=== PATIENT | female | born 1970 | race Caucasian/White ===

== ENCOUNTER 2020-02-21 20:20 | Inpatient (IN) | payer MEDICAID, SELFPAY ==
[2020-02-21 20:31] VITALS: BP 157/83; PULSE 72; RESP 17; TEMP 36.9; O2SAT 88; BMI 38.5
--- NOTE | 2020-02-21 20:44 | PC.NURSE ---
Pt o2 sat on RA 88-89% on room air, placed on 2L o2 via NC, sat up to 94-95% Awaiting primary eval.
--- NOTE | 2020-02-21 21:12 | XR_ITS ---
EXAMINATION: XR CHEST CLINICAL INFORMATION: Shortness of breath COMPARISON: 12/05/2019 TECHNIQUE: Frontal view of the chest was obtained. FINDINGS: Lungs are significantly hypoinflated compared to the prior study. Again noted are scattered areas of atelectasis. No focal consolidations or lung masses are present. A tiny right pleural effusion cannot be entirely excluded. IMPRESSION: Hypoinflated lungs with scattered areas of atelectasis. No acute intrathoracic disease.
--- NOTE | 2020-02-21 21:13 | ECG_ITS ---
Test Reason : CHEST PAIN Blood Pressure : / mmHG Vent. Rate : 069 BPM Atrial Rate : 069 BPM P-R Int : 146 ms QRS Dur : 100 ms QT Int : 436 ms P-R-T Axes : 056 -03 086 degrees QTc Int : 467 ms Normal sinus rhythm Nonspecific T wave abnormality Lateral leads Abnormal ECG No previous ECGs available Referred By: Andrea Hernandes Electronically Signed By:ANEL MARTINEZ MD
--- NOTE | 2020-02-21 21:15 | ED_ITS ---
HPI - SOB/Dyspnea General Chief Complaint: Dyspnea Stated Complaint: SOB Time Seen by Provider: 02/21/20 21:07 Source: patient History of Present Illness HPI Narrative: 50-year-old female with a history of asthma and COPD coming in with shortness of breath patient states he is supposed to be on home oxygen however months ago they stopped. For the past 4 -5 days has been increasing shortness of breath with cough. Nonproductive. No fevers or chills. denies ch est pain denies nausea vomiting. Denies abdominal pain states has not been sick recently with any contacts with [place] [facility] elicited complaint: shortness of breath Pertinent past history: COPD Onset (ago): day(s) ( 4 days) Timing: constant Severity: moderate Exacerbating factors: lying flat Relieving factors: oxygen Known history of: COPD Associated symptoms: cough Treatment prior to arrival: oxygen Related Data Home oxygen amount: none Home Medications Medication Instructions Recorded Confirmed gabapentin 600 mg PO TID 02/21/20 02/21/20 sertraline 100 mg PO DAILY 02/21/20 02/21/20 albuterol 180 mcg INHALATION Q4H PRN 02/22/20 02/22/20 amlodipine 5 mg PO DAILY 02/22/20 02/22/20 [id number] 2 tab PO DAILY PRN 02/22/20 02/22/20 [Excedrin Migraine] buprenorphine-naloxone [Suboxone] 1 film BUCCAL DAILY 02/22/20 02/22/20 docusate sodium [Stool Softener] 100 mg PO BID 02/22/20 02/22/20 haloperidol [Haldol] 0.5 mg PO DAILY 02/22/20 02/22/20 haloperidol [Haldol] 0.5 mg PO DAILY PRN 02/22/20 02/22/20 haloperidol [Haldol] 1 mg PO BEDTIME 02/22/20 02/22/20 lamotrigine 50 mg PO DAILY 02/22/20 02/22/20 lisinopril 30 mg PO DAILY 02/22/20 02/22/20 loratadine [Claritin] 10 mg PO DAILY 02/22/20 02/22/20 nystatin [Nyamyc] 1 applic TOPICAL BID 02/22/20 02/22/20 polyethylene glycol 3350 [Miralax] 17 g PO DAILY 02/22/20 02/22/20 prazosin 1 mg PO BEDTIME 02/22/20 02/22/20 prazosin 2 mg PO BEDTIME 02/22/20 02/22/20 tiotropium-olodaterol [Stiolto 2 puff INHALATION DAILY 02/22/20 02/22/20 Respimat] trazodone 300 mg PO BEDTIME 02/22/20 02/22/20 Previous Rx's Medication Instructions Recorded levofloxacin 750 mg PO DAILY 7 Days #7 tab 02/22/20 prednisone 50 mg PO DAILY 5 Days #5 tab 02/22/20 Allergies Allergy/AdvReac Type Severity Reaction Status Date / Time codeine [CODEINE] AdvReac Mild RASH Verified 02/21/20 20:31 oxycodone [From OXYCONTIN] AdvReac Mild RASH Verified 02/21/20 20:31 Review of Systems Review of Systems: Constitutional : No Fever, No Chills ENT/Mouth : No sore throat, No Rhinorrhea, No Swallowing Difficulty Eyes: No Eye Pain, No Swelling, No Redness Cardiovascular : No Chest Pain, positive SOB, No Orthopnea, positive Edema Respiratory : No Cough, No Sputum, No Wheezing, positive dyspnea Gastrointestinal : No Nausea, No Vomiting, No Diarrhea, No abdominal Pain, No Hematochezia, No Melena Genitourinary : No Dysuria, No Urinary Frequency, No Hematuria Musculoskeletal : No joint pain, No Myalgias Skin : No Skin Lesions, No rash Neuro : No Weakness, No Numbness, No Dizziness, No Headache Psych : No Anxiety/Panic, No Depression Heme/Lymph: No Bruising, No Lymphadenopathy Endocrine : No Polyuria, No Polydipsia [facility] Past Medical History Medical History (Updated 02/22/20 @ 00:33 by Andrea Hernandse DO) Asthma COPD (chronic obstructive pulmonary disease) Surgical History (Updated 02/21/20 @ 21:17 by Andrea Hernandes DO) H/O neck surgery Social History Social History Alcohol intake: never Smoking Status: Current every day smoker Smoked in Last 30 Days: Yes Use of substances other than those prescribed or required for medical reasons: No Advance Directives: No Advance Directives Information Provided: Yes Physical Exam Vital Signs: Vital Signs: Vital Signs Temp Pulse Resp BP Pulse Ox 02/21/20 22:18 98.9 F 68 18 138/62 94 02/21/20 20:31 98.5 F 72 17 157/83 H 88 L Body Mass Index 38.5 vital signs reviewed pulse ox interpreted as low. 88% room air Appearance: Alert. Oriented X3. No acute distress. Eyes: Pupils equal, round and reactive to light. ENT: Pharynx normal. Neck: Normal inspection. Neck supple. No lymph nodes noted. No crepitus CVS: Normal heart rate and rhythm. Pulses normal. Normal S1 and S2 Respiratory: mild respiratory distress. Breath sounds abnormal. bilateral Wheezing. No rales Abdomen: Soft and nontender. No rigidity. No distention. good BS x4 Skin: Skin warm and dry. Normal skin color. Normal skin turgor. Extremities: No lower extremity edema. Neurovascular intact to all extremities. No Lacerations. No Rash Neuro: Oriented X 3. No motor deficit. No sensory deficit. Moving all extermities. No slurred speech. Course Course Course Narrative: differential diagnosis includes COPD exacerbation. Sepsis, pneumonia pulmonary embolism Reevaluation(s) Reevaluation #1: after admission process has started. Now patient states she wants to leave and she wants to go home. I discussed with her the importance of staying in the hospital secondary to low oxygen levels and infection to lung and she states that she wants to leave because she does not want to lose her bed at her rehab. We explained to her we will try to facilitate when she gets discharged from work to stay however patient continues to refuse and does not want to stay anymore. Patient is alert and oriented x4. Patient is not i ntoxicated. And is now screaming at staff that she wants the hospital to get her a ride home I discussed this with hospitalist I discussed the patient reasons to call or 1 and return. Patient is not intoxicated and will be signing out AMA patient at 02:36 now decided wants to stay in the emergency department will need be admitted I discussed with hospitalist Time: 00:58 MDM - SOB/Dyspnea MDM Narrative Medical decision making narrative: 50-year-old female with a history of COPD with arrival of hypoxia improved with oxygenation IV antibiotics and Steroids. CTA without pulmonary embolism however diagnosed with pneumonia will be admitted. Patient does not meet criteria for sepsis at this point however antibiotics and fluids were empirically began with multiple rechecks by me while in the emergency department to prevent further deterioration I spoke with hospitalist at 00:38 in regards to admission Medical Records Attestation: I reviewed the patient's medical records. Lab Data Attestation: I reviewed the patient's lab results. Result diagrams: 02/21/20 21:35 02/21/20 21:35 Labs: Lab Results 02/21/20 02/21/20 02/21/20 Range/Units 21:35 21:35 21:35 WBC 9.0 (4.8-10.8) X10*3/uL RBC 4.86 (4.20-5.50) X10*6/uL Hgb 14.5 (12.0-16.0) g/dl Hct 44.7 (37-47) % MCV 92.0 (80-98) fL MCH 29.8 (27.0-33.0) pg MCHC 32.4 (31.0-35.0) g/dl RDW 13.8 (11.0-16.0) % Plt Count 147 L (160-400) X10*3/uL MPV 9.3 L (9.4-12.3) fL Immature Gran % (Auto) 0.4 (0.0-0.4) % Neut % (Auto) 52.3 (45-73) % Lymph % (Auto) 31.4 (20-40) % [place] % (Auto) 11.4 H (2-11) % Eos % (Auto) 4.2 H (0-4) % Baso % (Auto) 0.3 (0-2) % Lymph # (Auto) 2.8 (1.2-4.9) X10*3/uL [place] # (Auto) 1.0 (0.1-1.2) X10*3/uL Eos # (Auto) 0.4 (0.0-0.4) X10*3/uL Baso # (Auto) 0.0 (0.0-0.2) X10*3/uL Abs Immat Gran (auto) 0.04 H (0.00-0.03) X10*3/uL Absolute Neuts (auto) 4.7 (2.0-8.3) X10*3/uL Absolute Nucleated RBC 0.000 (0.0-0.012) X10*3/uL Nucleated RBC % (auto) 0.0 (0.0-0.2) /100WBC D-Dimer 951 NG/ML Sodium 141 (135-145) mmol/L Potassium 3.8 (3.3-5.1) mmol/l Chloride 101 (96-108) mmol/L Carbon Dioxide 34 H (22-29) mmol/L Anion Gap 10 L (12-20) BUN 13 (9-16) mg/dL Creatinine 0.74 (0.5-1.4) mg/dL Estim Creat Clear Calc 112.0 Estimated GFR > 60 Random Glucose 118 H (60-115) mg/dL Lactic Acid (0.5-2.0) mmol/L Calcium 9.1 (8.4-10.2) mg/dL Total Bilirubin 0.4 (0.0-1.0) mg/dL Direct Bilirubin 0.2 (0.0-0.5) mg/dL AST 34 H (5-31) U/L ALT 37 H (0-31) U/L Alkaline Phosphatase 88 (39-117) U/L Troponin I High Sens (<3.5-17.0) ng/L Total Protein 7.2 (6.5-8.0) g/dL Albumin 3.9 (3.5-5.0) g/dL Lipase 46 (8-78) U/L 02/21/20 02/21/20 Range/Units 21:35 21:35 WBC (4.8-10.8) X10*3/uL RBC (4.20-5.50) X10*6/uL Hgb (12.0-16.0) g/dl Hct (37-47) % MCV (80-98) fL MCH (27.0-33.0) pg MCHC (31.0-35.0) g/dl RDW (11.0-16.0) % Plt Count (160-400) X10*3/uL MPV (9.4-12.3) fL Immature Gran % (Auto) (0.0-0.4) % Neut % (Auto) (45-73) % Lymph % (Auto) (20-40) % [place] % (Auto) (2-11) % Eos % (Auto) (0-4) % Baso % (Auto) (0-2) % Lymph # (Auto) (1.2-4.9) X10*3/uL [place] # (Auto) (0.1-1.2) X10*3/uL Eos # (Auto) (0.0-0.4) X10*3/uL Baso # (Auto) (0.0-0.2) X10*3/uL Abs Immat Gran (auto) (0.00-0.03) X10*3/uL Absolute Neuts (auto) (2.0-8.3) X10*3/uL Absolute Nucleated RBC (0.0-0.012) X10*3/uL Nucleated RBC % (auto) (0.0-0.2) /100WBC D-Dimer NG/ML Sodium (135-145) mmol/L Potassium (3.3-5.1) mmol/l Chloride (96-108) mmol/L Carbon Dioxide (22-29) mmol/L Anion Gap (12-20) BUN (9-16) mg/dL Creatinine (0.5-1.4) mg/dL Estim Creat Clear Calc Estimated GFR Random Glucose (60-115) mg/dL Lactic Acid 0.6 (0.5-2.0) mmol/L Calcium (8.4-10.2) mg/dL Total Bilirubin (0.0-1.0) mg/dL Direct Bilirubin (0.0-0.5) mg/dL AST (5-31) U/L ALT (0-31) U/L Alkaline Phosphatase (39-117) U/L Troponin I High Sens 8.6 (<3.5-17.0) ng/L Total Protein (6.5-8.0) g/dL Albumin (3.5-5.0) g/dL Lipase (8-78) U/L Critical Care Time Critical Care Time Total Critical Care Time: 35 Attestation: I have personally provided the time allotted of critical care time exclusive of time spent on separately billable procedures. Time includes review of laboratory data, radiology results, discussion with consultants and monitoring for potential decompensation. Interventions were performed and documented Discharge Plan Discharge Clinical Impression: Acute exacerbation of chronic obstructive airways disease, Hypoxia Pneumonia Qualifiers: Pneumonia type: due to unspecified organism Laterality: right Lung location: lower lobe of lung Qualified Code(s): J18.9 - Pneumonia, unspecified organism Patient Disposition: Admitted As Inpatient
[2020-02-21] MEDS: Albuterol Sulfate (0.083%) 2.5 MG/3 ML VIAL.NEB 5 MG INHALE (21:36)
[2020-02-21 21:42] LABS: MANUAL DIFF FLAG NO
[2020-02-21 21:43] LABS: Basophils Percent Auto 0.3 % (0-2); Eosinophils Absolute Auto 0.4 X10*3/uL (0.0-0.4); Eosinophils Percent Auto 4.2 % (0-4); Hematocrit 44.7 % (37-47); Hemoglobin 14.5 g/dl (12.0-16.0); Imm Gran Abs Auto 0.04 X10*3/uL (0.00-0.03); Imm Gran Pct Auto 0.4 % (0.0-0.4); Lymphocytes Absolute Auto 2.8 X10*3/uL (1.2-4.9); Lymphocytes Percent Auto 31.4 % (20-40); Mean Corpuscular HGB Conc 32.4 g/dl (31.0-35.0); Mean Corpuscular Hemoglobin 29.8 pg (27.0-33.0); Mean Platelet Volume 9.3 fL (9.4-12.3); Monocytes Percent Auto 11.4 % (2-11); Neutrophils Absolute Auto 4.7 X10*3/uL (2.0-8.3); Neutrophils Percent Auto 52.3 % (45-73); Platelet Count 147 X10*3/uL (160-400); Red Blood Count 4.86 X10*6/uL (4.20-5.50); Red Cell Distribution Width 13.8 % (11.0-16.0)
[2020-02-21 21:58] LABS: D Dimer 951 NG/ML
[2020-02-21] MEDS: levoFLOXacin/D5W 750 MG/150 ML PIGGYBACK 100 MG IV (22:03)
[2020-02-21 22:05] LABS: Lactic Acid 0.6 mmol/L (0.5-2.0)
--- NOTE | 2020-02-21 22:09 | CT_ITS ---
EXAMINATION: CT ANGIOGRAM OF THE CHEST WITH AND WITHOUT CONTRAST (CT PULMONARY ANGIOGRAM FOR PE) CLINICAL INFORMATION: Shortness of breath. Hypoxia. COMPARISON: 02/21/2020 TECHNIQUE: Prior to contrast administration, noncontrast localization images were obtained. Subsequently, multidetector volumetric imaging was performed from the thoracic inlet to below the diaphragms following the administration of 65 mL Omnipaque 350 intravenous contrast. No contrast reaction reported Sagittal, coronal, and MIP oblique sagittal reformatted images were obtained on the CT workstation, uploaded to PACS, and reviewed. This CT examination was performed using dose optimization techniques as appropriate, variously including the following: *Automated exposure control *Adjustment of mA and/or kV according to patient size (this includes techniques or standardized protocols for targeted exams where dose is matched to indication/reason for exam; i.e. extremities or head) *Use of iterative reconstruction technique Total exam dose-length product 490 mGy-cm FINDINGS: QUALITY OF STUDY/CONTRAST BOLUS: Satisfactory. PULMONARY ARTERIES: No central or segmental pulmonary emboli. THORACIC AORTA: No aneurysm or dissection. LUNG: The central airways are patent. Diffuse bronchial wall thickening. Scattered groundglass opacities. Bilateral pulmonary nodules are noted. 1. 0.6 cm nodule in the lingula on series 6 image 178. 2. Right middle lobe 0.7 cm nodule on series 6 image 223. Additional mild consolidation along the right minor fissure. PLEURA: No pleural effusion or pneumothorax. MEDIASTINUM: Normal heart size. No pericardial effusion. No hilar or mediastinal lymphadenopathy. No evidence of septal bowing or right heart strain. CHEST WALL/AXILLA: No axillary or internal mammary lymphadenopathy. OSSEOUS STRUCTURES: No acute or suspicious osseous abnormality. Degenerative changes of the spine. UPPER ABDOMEN: Nodular Contour of the liver, suggestive of cirrhosis. No reflux of contrast into the hepatic veins to suggest elevated right heart pressures. IMPRESSION: 1. No pulmonary embolism. 2. Diffuse bronchial wall thickening with groundglass opacities. The appearance is suggestive of a small airways process. There may be an area of superimposed pneumonia along the right minor fissure. 3. Bilateral nodular opacities are also noted. These measure up to 0.7 cm. According to the UPDATED 2017 Fleischner Society recommendations, the advised follow-up imaging for multiple solid nodules, the largest measuring 6 mm or greater, is: LOW RISK PATIENT: CT at 3-6 months, then consider CT at 18-24 months. HIGH RISK PATIENT: CT at 3-6 months, then at 18-24 months. 4. Nodular Contour of the liver, suggestive of cirrhosis. VTE: negative
[2020-02-21 22:10] LABS: Alanine Aminotransferase 37 U/L (0-31); Albumin Level 3.9 g/dL (3.5-5.0); Alkaline Phosphatase 88 U/L (39-117); Anion Gap 10 (12-20); Aspartate Amino Transferase 34 U/L (5-31); Bilirubin Direct 0.2 mg/dL (0.0-0.5); Bilirubin Total 0.4 mg/dL (0.0-1.0); Blood Urea Nitrogen 13 mg/dL (9-16); Calcium 9.1 mg/dL (8.4-10.2); Carbon Dioxide 34 mmol/L (22-29); Chloride 101 mmol/L (96-108); Estimated Glomerular Filt Rate > 60; Glucose Random 118 mg/dL (60-115); Lipase 46 U/L (8-78); Potassium 3.8 mmol/l (3.3-5.1); Sodium 141 mmol/L (135-145); Total Protein 7.2 g/dL (6.5-8.0)
[2020-02-21 22:14] LABS: Troponin-I High Sensitivity 8.6 ng/L (<3.5-17.0)
[2020-02-21 22:18] VITALS: BP 138/62; PULSE 68; RESP 18; TEMP 37.2; O2SAT 94
[2020-02-22] VITALS (7 sets, daily range): BP systolic 144–158; BP diastolic 62–79; PULSE 72–95; RESP 16–20; TEMP 36.6–37.1; O2SAT 93–98; BMI 85.0
[2020-02-22] MEDS: iohexoL 350 MG/ML 100 ML INFUS..BTL 65 ML IV (00:10)
--- NOTE | 2020-02-22 00:54 | PC.NURSE ---
Hospitalist to bedside for eval.
--- NOTE | 2020-02-22 01:10 | PC.NURSE ---
Pt initially refusing admission and wanting to leave AMA, pt wanting this RN to figure out her transportation home. When pt was told she would need to make phone calls pt becoming angry and asking for a phone. Pt provided with phone and calling someone from [facility]. Pt saying she will stay if she cannot find a ride home.
--- NOTE | 2020-02-22 01:50 | P.HPIM_ITS ---
History of Present Illness Date of Service: 02/22/20 Chief Complaint: SOB this is a 50-year-old female with past medical history of COPD exacerbation and tobacco use who presents to the hospital with complaints of shortness of breath for the past 4 days. Patient reports cough and sputum production. No fever or chills. Patient reports that she is supposed to be on baseline 2 L of oxygen but the company. Delivering her oxygen few months ago. On arrival to the ED patient was 88% on room air. She reports no chest pain, no sick contacts or recent travel. No headache, change in vision, abdominal pain nausea or vomiting. No diarrhea constipation. No lower extremity edema no urinary symptoms. On arrival to the ED patient's vitals are significant for a temp of 98.5?, pulse rate of 72, respiratory rate of 17, blood pressure 157/8083, and 88% on room air. Patient currently on 2 L satting 96%. labs unremarkable CT angiogram shows no PE but diffuse bronchial wall thickening with ground- glass opacities, the appearance is suggestive of small airway process. An area of superimposed pneumonia cannot be ruled out. Bilateral nodular opacities also noted. Patient will be admitted for further management of COPD exacerbation past medical history: COPD, hypertension, tobacco use disorder surgical history: Appendectomy, tonsillectomy family history: Nonsignificant social history: Comes from home, currently smokes half a pack per day, denies alcohol and or illicit drugs Review of Systems Review of Systems: Yes all other systems are reviewed and are negative [facility] Medical History (Updated 02/22/20 @ 06:04 by Natalia Puentes MD) Asthma COPD (chronic obstructive pulmonary disease) Hypertension Surgical History H/O neck surgery Social History Household Members: Other Housing: Other Do you presently have visiting nurse or other home services: Yes Alcohol intake: never Smoking Status: Current every day smoker Tobacco Type: Cigarette Smoked in Last 30 Days: Yes Patient Interested in Nicotine Replacement: No Patient Given Instructions on How to Stop Smoking: Yes Date Education Initiated: 02/22/20 Second Hand Smoke Exposure: Yes Use of substances other than those prescribed or required for medical reasons: No Have you been hit, kicked, punched, or otherwise hurt by someone within the past year? If so, by whom?: No Do you feel safe in your current relationship?: No Is there a partner from a previous relationship who is making you feel unsafe now?: No Are you made to feel afraid or neglected: No Advance Directives: No Advance Directives Information Provided: Yes Do you have thoughts of harming others: None Recently lost weight without trying: No service: No Current occupational status: unemployed Meds Allergies Allergy/AdvReac Type Severity Reaction Status Date / Time codeine [CODEINE] AdvReac Mild RASH Verified 02/21/20 20:31 oxycodone [From OXYCONTIN] AdvReac Mild RASH Verified 02/21/20 20:31 Home Medications Medication Instructions Recorded Confirmed Type gabapentin 600 mg PO TID 02/21/20 02/21/20 History sertraline 100 mg PO DAILY 02/21/20 02/21/20 History Excedrin Migraine 2 tab PO DAILY PRN 02/22/20 02/22/20 History Stiolto Respimat 2 puff INHALATION DAILY 02/22/20 02/22/20 History albuterol 180 mcg INHALATION Q4H PRN 02/22/20 02/22/20 History amlodipine 5 mg PO DAILY 02/22/20 02/22/20 History buprenorphine-naloxone [Suboxone] 1 film BUCCAL DAILY 02/22/20 02/22/20 History docusate sodium [Stool Softener] 100 mg PO BID 02/22/20 02/22/20 History haloperidol 0.5 mg PO DAILY 02/22/20 02/22/20 History haloperidol 0.5 mg PO DAILY PRN 02/22/20 02/22/20 History haloperidol 1 mg PO BEDTIME 02/22/20 02/22/20 History lamotrigine 50 mg PO DAILY 02/22/20 02/22/20 History lisinopril 30 mg PO DAILY 02/22/20 02/22/20 History loratadine [Claritin] 10 mg PO DAILY 02/22/20 02/22/20 History nystatin [Nyamyc] 1 applic TOPICAL BID 02/22/20 02/22/20 History polyethylene glycol 3350 [Miralax] 17 g PO DAILY 02/22/20 02/22/20 History prazosin 1 mg PO BEDTIME 02/22/20 02/22/20 History prazosin 2 mg PO BEDTIME 02/22/20 02/22/20 History trazodone 300 mg PO BEDTIME 02/22/20 02/22/20 History Physical Exam Vital Signs and Narrative: Vital Signs: Last Vital Signs Temp 98.9 F 02/21/20 22:18 Pulse 68 02/21/20 22:18 Resp 18 02/21/20 22:18 BP 138/62 02/21/20 22:18 Pulse Ox 94 02/21/20 22:18 Body Mass Index 38.5 Const: General: cooperative and no acute distress Orientation/consciousness: patient oriented x3 Eyes: General: appearance normal, both eyes and all related structures Pupils: Equal, round and reactive pupils present Resp: Effort & Inspection: normal respiratory effort and able to speak in complete sentences Auscultation: rhonchi and wheezes Cardio: Rate: regular rate Rhythm: regular rhythm GI: Palpation (GI): Soft to palpation Auscultation: normal bowel sounds Skin: General skin exam: no rashes or lesions noted Neuro: General: patient oriented x3 Cranial nerves: Yes Equal, round and reactive pupils present Cognition (Neuro): normal cognition Extrem: General: Yes normal to inspection and Yes no pedal edema Results Labs Labs: Laboratory Tests 02/21/20 02/21/20 02/21/20 21:35 21:35 21:35 WBC 9.0 RBC 4.86 Hgb 14.5 Hct 44.7 MCV 92.0 MCH 29.8 MCHC 32.4 RDW 13.8 Plt Count 147 L MPV 9.3 L Immature Gran % (Auto) 0.4 Neut % (Auto) 52.3 Lymph % (Auto) 31.4 [place] % (Auto) 11.4 H Eos % (Auto) 4.2 H Baso % (Auto) 0.3 Lymph # (Auto) 2.8 [place] # (Auto) 1.0 Eos # (Auto) 0.4 Baso # (Auto) 0.0 Abs Immat Gran (auto) 0.04 H Absolute Neuts (auto) 4.7 Absolute Nucleated RBC 0.000 Nucleated RBC % (auto) 0.0 D-Dimer 951 Sodium 141 Potassium 3.8 Chloride 101 Carbon Dioxide 34 H Anion Gap 10 L BUN 13 Creatinine 0.74 Estim Creat Clear Calc 112.0 Estimated GFR > 60 Random Glucose 118 H Lactic Acid Calcium 9.1 Total Bilirubin 0.4 Direct Bilirubin 0.2 AST 34 H ALT 37 H Alkaline Phosphatase 88 Troponin I High Sens Total Protein 7.2 Albumin 3.9 Lipase 46 02/21/20 02/21/20 21:35 21:35 WBC RBC Hgb Hct MCV MCH MCHC RDW Plt Count MPV Immature Gran % (Auto) Neut % (Auto) Lymph % (Auto) [place] % (Auto) Eos % (Auto) Baso % (Auto) Lymph # (Auto) [place] # (Auto) Eos # (Auto) Baso # (Auto) Abs Immat Gran (auto) Absolute Neuts (auto) Absolute Nucleated RBC Nucleated RBC % (auto) D-Dimer Sodium Potassium Chloride Carbon Dioxide Anion Gap BUN Creatinine Estim Creat Clear Calc Estimated GFR Random Glucose Lactic Acid 0.6 Calcium Total Bilirubin Direct Bilirubin AST ALT Alkaline Phosphatase Troponin I High Sens 8.6 Total Protein Albumin Lipase Assessment and Plan (1) Acute exacerbation of chronic obstructive airways disease: Status: Acute (2) Hypoxia: Status: Acute (3) Pneumonia: Qualifiers: Laterality: right Lung location: lower lobe of lung Pneumonia type: due to unspecified organism Qualified Code(s): J18.9 - Pneumonia, unspecified organism Status: Acute (4) Hypertension: Status: Acute this is a 50-year-old female with past medical history of COPD who presents to the hospital with cough, dyspnea, and sputum production. Also found to have pneumonia # acute on chronic COPD exacerbation - dyspnea, cough, sputum production - CT chest is also showing pneumonia - patient has not had any sick contacts or recent travel - PCR for coronavirus negative in the past with low risk factors at this time Plan: - continue Solu-Medrol 40 IV b.i.d., DuoNeb scheduled and PRN - O2 as required - No clinical evidence of COvid infection and no risk factors - Tx underlying PNA # Community Acquired PNA -
--- NOTE | 2020-02-22 03:42 | PC.NURSE ---
Report attemted, floor nurse to call back
[2020-02-22] MEDS: Albuterol/Iprat 2.5/0.5MG 3 ML AMPUL.NEB INHALE ×3 (07:21→15:17)
[2020-02-22 07:55] LABS: MANUAL DIFF FLAG NO
[2020-02-22 08:10] LABS: Basophils Percent Auto 0.3 % (0-2); Eosinophils Percent Auto 0.6 % (0-4); Hematocrit 45.4 % (37-47); Hemoglobin 14.7 g/dl (12.0-16.0); Imm Gran Abs Auto 0.07 X10*3/uL (0.00-0.03); Lymphocytes Absolute Auto 1.3 X10*3/uL (1.2-4.9); Mean Corpuscular HGB Conc 32.4 g/dl (31.0-35.0); Mean Corpuscular Hemoglobin 29.6 pg (27.0-33.0); Mean Corpuscular Volume 91.3 fL (80-98); Mean Platelet Volume 9.6 fL (9.4-12.3); Monocytes Absolute Auto 0.2 X10*3/uL (0.1-1.2); Monocytes Percent Auto 2.7 % (2-11); Neutrophils Absolute Auto 5.3 X10*3/uL (2.0-8.3); Neutrophils Percent Auto 76.4 % (45-73); Platelet Count 133 X10*3/uL (160-400); Red Blood Count 4.97 X10*6/uL (4.20-5.50); Red Cell Distribution Width 13.5 % (11.0-16.0); White Blood Count 6.9 X10*3/uL (4.8-10.8)
[2020-02-22] MEDS: Gabapentin 300 MG CAPSULE 600 MG PO ×2 (08:44→15:47)
[2020-02-22] MEDS: lisinopriL 10 MG TABLET 30 MG PO (08:44)
[2020-02-22] MEDS: Sertraline HCL 100 MG TABLET PO (08:45)
[2020-02-22] MEDS: Loratadine 10 MG TABLET PO (08:47)
[2020-02-22] MEDS: 0.9 % Sodium Chloride Flush 3 ML SYRINGE IVFLUSH ×2 (08:57→15:50)
[2020-02-22] MEDS: amLODIPine Besylate 5 MG TABLET PO (08:59)
[2020-02-22 09:00] LABS: Alanine Aminotransferase 37 U/L (0-31); Albumin Level 3.9 g/dL (3.5-5.0); Alkaline Phosphatase 90 U/L (39-117); Anion Gap 13 (12-20); Aspartate Amino Transferase 33 U/L (5-31); Bilirubin Total 0.4 mg/dL (0.0-1.0); Blood Urea Nitrogen 12 mg/dL (9-16); Calcium 9.1 mg/dL (8.4-10.2); Carbon Dioxide 26 mmol/L (22-29); Chloride 102 mmol/L (96-108); Creatinine Clr Calc Pharmacy 205.7; Estimated Glomerular Filt Rate > 60; Glucose Random 194 mg/dL (60-115); Sodium 137 mmol/L (135-145); Total Protein 7.3 g/dL (6.5-8.0)
[2020-02-22] MEDS: Acetaminophen 325 MG TABLET 650 MG PO (15:48)
[2020-02-22 16:02] LABS: SARS COV2 PCR INHOUSE NEGATIVE (Negative)
--- NOTE | 2020-02-23 10:03 | MHC.CM.PN ---
Pt lives alone in [facility] [place]. she reports she is independent in her care. she has family that live nearby and can help her should she need it. this will include a ride home at [place]. pt denies the need for vna at [place]. pt uses [facility] in [place] for pcp. dc plan is home no svcs. cm to cont. to follow.
[2020-02-25 14:27] LABS: Strep Pneumo Ag urine Not Detected (Not Detected)
[2020-02-25 18:42] LABS: Legionella Ag Urine Not Detected (Not Detected)
--- NOTE | 2020-03-15 16:02 | P.DS_ITS ---
DS: Providers Provider Date of admission: 02/22/20 01:50 Primary care physician: Unknown Physician DS: Diagnosis Discharge Diagnosis (1) Acute exacerbation of chronic obstructive airways disease: Status: Acute (2) Hypoxia: Status: Acute (3) Pneumonia: Status: Acute DS: Summary Hospital Course Hospital Course: Date of discharge: 02/22/2020 HPI:50-year-old female with past medical history of COPD exacerbation and tobacco use who presents to the hospital with complaints of shortness of breath for the past 4 days. Patient reports cough and sputum production. No fever or chills. Patient reports that she is supposed to be on baseline 2 L of oxygen but the company. Delivering her oxygen few months ago. On arrival to the ED patient was 88% on room air. She reports no chest pain, no sick contacts or recent travel. No headache, change in vision, abdominal pain nausea or vomiting. No diarrhea constipation. No lower extremity edema no urinary symptoms. On arrival to the ED patient's vitals are significant for a temp of 98.5?, pulse rate of 72, respiratory rate of 17, blood pressure 157/8083, and 88% on room air. Patient currently on 2 L satting 96%. labs unremarkable CT angiogram shows no PE but diffuse bronchial wall thickening with ground- glass opacities, the appearance is suggestive of small airway process. An area of superimposed pneumonia cannot be ruled out. Bilateral nodular opacities also noted. Patient will be admitted for further management of COPD exacerbation Hospital Course problem lim section: patient came with COPD exacerbation as well as pneumonia -started on IV antibiotics and steroids, nebs: improved significantly does not have any fever or chills or saturating fine on the room air: patient is going home with p.o. steroids , p.o. antibiotics. Further management outpatient as per PCP. patient has mild LFT elevations - monitor LFTs in next 2-3 days in in respite: further management outpatient as per PCP, consider GI evaluation if continue to have elevated LFTs. Also please check chest imaging in 3-4 weeks to see resolution of pneumonia. Above management discussed with the patient in detail length she understand and in agreement with the above plan, time spent 50 minutes and 50% time spent on counseling. Significant findings: As above. Procedures performed: None. Treatment and response: As above. Complications: None. Time Spent with Patient Time attestation: Total time spent providing and/or coordinating discharge services: Physical Exam Vital Signs: Vital Signs: Body Mass Index 85.0 Physical exam: Cvs: rrr, [id number] , no murmur res: clear to auscultation ,no rhonchii or wheezing abd: no rebound or guarding ,nt, bs present. ext pulses present , no cyanosis neuro: axo3 , nonfocal. Discharge Plan Discharge Patient Disposition: Home, Self-Care Referrals: PATIENT IS BEING DISCHARGED HOME NO SERVICES. [Other] [facility] [Provider Group] - 2 days Physician,Unknown [Primary Care Provider] - Discharge Medications: New prednisone 50 mg tablet 50 mg PO DAILY 5 Days Qty: 5 RF: 0 cefuroxime axetil 500 mg tablet 500 mg PO BID Qty: 14 RF: 0 doxycycline monohydrate 100 mg capsule 100 mg PO DAILY Qty: 14 RF: 0 Continued gabapentin 300 mg Capsule 600 mg PO TID RF: 0 sertraline 100 mg Tablet 100 mg PO DAILY RF: 0 albuterol 90 mcg/actuation Aerosol 180 mcg INHALATION Q4H PRN (Reason: Shortness Of Breath) RF: 0 haloperidol 0.5 mg Tablet 0.5 mg PO DAILY PRN (Reason: Agitation) RF: 0 haloperidol 0.5 mg Tablet 0.5 mg PO DAILY RF: 0 polyethylene glycol 3350 [Miralax] 17 gram Powder In Packet 17 g PO DAILY RF: 0 prazosin 1 mg Capsule 1 mg PO BEDTIME RF: 0 haloperidol 1 mg Tablet 1 mg PO BEDTIME RF: 0 amlodipine 5 mg Tablet 5 mg PO DAILY RF: 0 trazodone 300 mg Tablet 300 mg PO BEDTIME RF: 0 lisinopril 30 mg Tablet 30 mg PO DAILY RF: 0 docusate sodium [Stool Softener] 100 mg Capsule 100 mg PO BID RF: 0 nystatin [Nyamyc] 100,000 unit/gram Powder 1 applic TOPICAL BID RF: 0 Excedrin Migraine 250-250-65 mg Tablet 2 tab PO DAILY PRN (Reason: Headache) RF: 0 loratadine [Claritin] 10 mg Tablet 10 mg PO DAILY RF: 0 prazosin 2 mg Capsule 2 mg PO BEDTIME RF: 0 lamotrigine 50 mg Tablet Extended Release 24hr 50 mg PO DAILY RF: 0 buprenorphine-naloxone [Suboxone] 8-2 mg Film 1 film BUCCAL DAILY RF: 0 Stiolto Respimat 2.5-2.5 mcg/actuation Mist 2 puff INHALATION DAILY RF: 0 Discharge Orders: Discharge Order (Routine); Ordered 02/22/20 Ordered By: Khanh Galan Diet: advance to your usual diet Activity on Discharge: As tolerated Patient Instructions: Pneumonia (ED) Discharge Date/Time: 02/22/20 17:45 Activity Restrictions/Additional Instructions: Thank you for visiting the emergency department today. you are signing out against medical advice after own free will. If your symptoms worsen or do not resolve completely please return to the emergency department immediately or call 911. if he have any questions please call your primary care physician Visit Report Forms: Patient Portal Discharge page Care Plan Goals: patient came with COPD exacerbation as well as pneumonia -started on IV antibiotics and steroids, nebs: improved significantly does not have any fever or chills or saturating fine on the room air: patient is going home with p.o. steroids , p.o. antibiotics. Further management outpatient as per PCP. patient has mild LFT elevations - monitor LFTs in next 2-3 days in in respite: further management outpatient as per PCP, consider GI evaluation if continue to have elevated LFTs. Also please check chest imaging in 3-4 weeks to see resolution of pneumonia. Health Concerns: as above. Plan of Treatment: As above.
== END 2020-02-22 17:45 | disposition home or self-care (01) | DRG 140 ==
LOC: HO.ED 02-22 01:42 → HO.IMC 02-22 02:17
PROVIDERS: Admitting Provider Internal Medicine; Emergency Provider Emergency Medicine; Visit Provider Internal Medicine
DX: J44.0 Chronic obstructive pulmonary disease with (acute) lower respiratory infection (principal); J18.9 Pneumonia, unspecified organism; J44.1 Chronic obstructive pulmonary disease with (acute) exacerbation; F17.210 Nicotine dependence, cigarettes, uncomplicated; I10 Essential (primary) hypertension; Z71.6 Tobacco abuse counseling; Z20.828 Contact with and (suspected) exposure to other viral communicable diseases; Z91.19 Patient's noncompliance with other medical treatment and regimen; Z88.5 Allergy status to narcotic agent; Z79.899 Other long term (current) drug therapy
CPT/HCPCS: 36415; 71045; 71275; 80048; 80053; 80076; 83605; 83690; 84484; 85025; 85379; 87040; 87449; 87635; 87899; 93005; 96361; 96365; 96375; 99219; 99284; 99291; J0574; J1956; J2920

== ENCOUNTER 2021-11-14 02:21 | Inpatient (IN) | payer MEDICAID, SELFPAY ==
[2021-11-14] VITALS (17 sets, daily range): BP systolic 108–172; BP diastolic 52–73; PULSE 63–115; RESP 12–18; TEMP 36.6–36.7; O2SAT 87–98; BMI 38.0; BMI 39.1
--- NOTE | ~2021-11-14 | XR_ITS ---
EXAMINATION: XR CHEST CLINICAL INFORMATION: Short of breath COMPARISON: 02/21/2020 TECHNIQUE: Frontal view of the chest was obtained. FINDINGS: Cardiac leads overlie the chest. The lungs are well expanded. Central vascular prominence. No overt edema. No pleural effusion or pneumothorax. The cardiomediastinal silhouette is unchanged. XR/XR chest 1V IMPRESSION: Central vascular prominence without overt edema.
--- NOTE | 2021-11-14 03:08 | PC.NURSE ---
Patient is in a longterm run by [facility] at [address] [place] [address]. Phone number [phone]
[2021-11-14] MEDS: Albuterol/Iprat 2.5/0.5MG 3 ML AMPUL.NEB INHALE (03:39)
--- NOTE | 2021-11-14 03:40 | ED_ITS ---
HPI - General Adult General Chief complaint: Dyspnea Stated complaint: SOB Time Seen by Provider: 11/14/21 03:20 Source: patient History of Present Illness HPI narrative: This is a 51-year-old female who is a poor historian. The patient reportedly complained of shortness of breath. EMS reports the patient had a pulse oximetry of 80% on room air, however there were unchanged shortness was reliable due to the patient's nail [place]. They noted that the patient was somnolent and attributed it to her having taking trazodone to sleep. The patient is not fort hcoming with regard to history, has mumbled speech, does not articulate much. She denies drug use. She denies tobacco use. Related Data Home Medications Medication Instructions Recorded Confirmed gabapentin 300 mg capsule 600 mg PO TID 02/21/20 02/21/20 sertraline 100 mg tablet 100 mg PO DAILY 02/21/20 02/21/20 albuterol 90 mcg/actuation aerosol 180 mcg inhalation Q4H PRN 02/22/20 02/22/20 inhaler Shortness Of Breath amlodipine 5 mg tablet 5 mg PO DAILY 02/22/20 02/22/20 [id number] 250 2 tab PO DAILY PRN Headache 02/22/20 02/22/20 mg-250 mg-65 mg tablet (Excedrin Migraine) buprenorphine 8 mg-naloxone 2 mg 1 film buccal DAILY 02/22/20 02/22/20 sublingual film (Suboxone) docusate sodium 100 mg capsule 100 mg PO BID 02/22/20 02/22/20 (Stool Softener) haloperidol 0.5 mg tablet 0.5 mg PO DAILY 02/22/20 02/22/20 haloperidol 0.5 mg tablet 0.5 mg PO DAILY PRN Agitation 02/22/20 02/22/20 haloperidol 1 mg tablet 1 mg PO BEDTIME 02/22/20 02/22/20 lamotrigine 50 mg tablet,extended 50 mg PO DAILY 02/22/20 02/22/20 release 24 hr lisinopril 30 mg tablet 30 mg PO DAILY 02/22/20 02/22/20 loratadine 10 mg tablet (Claritin) 10 mg PO DAILY 02/22/20 02/22/20 nystatin 100,000 unit/gram topical 1 applic topical BID 02/22/20 02/22/20 powder (Nyamyc) polyethylene glycol 3350 17 gram 17 g PO DAILY 02/22/20 02/22/20 oral powder packet (Miralax) prazosin 1 mg capsule 1 mg PO BEDTIME 02/22/20 02/22/20 prazosin 2 mg capsule 2 mg PO BEDTIME 02/22/20 02/22/20 tiotropium 2.5 mcg-olodaterol 2.5 2 puff inhalation DAILY 02/22/20 02/22/20 mcg/actuation mist for inhalation (Stiolto Respimat) trazodone 300 mg tablet 300 mg PO BEDTIME 02/22/20 02/22/20 Previous Rx's Medication Instructions Recorded cefuroxime axetil 500 mg tablet 500 mg PO BID #14 tabs 02/22/20 doxycycline monohydrate 100 mg 100 mg PO DAILY #14 caps 02/22/20 capsule prednisone 50 mg tablet 50 mg PO DAILY 5 days #5 tabs 02/22/20 Allergies Allergy/AdvReac Type Severity Reaction Status Date / Time codeine [CODEINE] AdvReac Mild RASH Verified 02/21/20 20:31 oxycodone [From OXYCONTIN] AdvReac Mild RASH Verified 02/21/20 20:31 Review of Systems Review of Systems: Yes Unobtainable due to mental status PMFSH Past Medical History Medical History (Updated 11/14/21 @ 06:00 by Porter Fernandez MD) Asthma COPD (chronic obstructive pulmonary disease) Hypertension Surgical History H/O neck surgery Social History Social History Household Members: Other Housing: Other Do you presently have visiting nurse or other home services: Yes Alcohol intake: unknown Patient Tobacco Use Status: Current everyday Tobacco user Smoked in Last 30 Days: Yes Second Hand Smoke Exposure: Yes Use of substances other than those prescribed or required for medical reasons: No Patient : No service: No Current occupational status: unemployed Physical Exam ED Vital Signs: Vital Signs - 24 hr 11/14/21 02:39 11/14/21 03:09 11/14/21 03:42 Temperature 98.1 F Pulse Rate 100 86 Respiratory Rate 13 15 Blood Pressure 110/52 L Pulse Oximetry 92 Oxygen Delivery Method Room Air Oxygen Flow Rate 11/14/21 03:54 11/14/21 04:19 11/14/21 05:35 Temperature Pulse Rate 90 73 Respiratory Rate 15 14 12 Blood Pressure 111/58 L 118/66 Pulse Oximetry 94 98 Oxygen Delivery Method Nasal Cannula BiPAP Oxygen Flow Rate 1 BMI result Body Mass Index 38.0 Const Other: Patient somnolent, has mumbled speech. Patient not tachypneic or in distress. Protuberant abdomen General: no acute distress HENMT Head: Yes normal to inspection General nose exam: Normal external nose present Mouth: moist mucous membranes Throat: Yes uvula midline Eyes Eyelids: Yes eyelids normal Conjunctivae: conjunctivae normal Pupils: Equal, round and reactive pupils present Neck Neck: Yes supple Resp Effort & Inspection: normal respiratory effort ( patient is somnolent, appears to have somewhat depressed respirations) Auscultation: clear to auscultation bilaterally Cardio Rate: regular rate Rhythm: regular rhythm Heart sounds: S1 normal heart sound present, S2 normal heart sound present, no gallops, no murmurs and no rubs GI Other: protuberant, nontender, soft Palpation (GI): Soft to palpation and nontender Auscultation: normal bowel sounds Skin General skin exam: other (Warm and dry) Neuro Other: patient somnolent no gross motor deficit General: CN's II-XI intact bilaterally Cranial nerves: Yes Equal, round and reactive pupils present Extrem Other: chronic venous stasis changes with stasis dermatitis bilaterally General: Yes no pedal edema Psych Affect: normal affect Attitude: cooperative Medical Decision Making [facility] Narrative Medical decision making narrative: Patient is a poor historian, appears to have a psychiatric history, is from a [facility], complained of shortness of breath and was very somnolent, had taken trazodone 200 mg at bedtime. Patient appeared to be hypoventilating and was borderline hypoxic. Narcan was trialed even though the patient denied drug use, and the patient did not have any response to 0.4 mg IM. She was started on BiPAP for hypercapnia /respiratory acidosis. Chest x-ray showed no evidence of pneumonia, there is mild vascular prominence centrally but no freida pulmonary edema. BNP is normal. EKG shows no concerning findings. Troponin was borderline elevated. Patient's arterial blood gas showed a mild respiratory acidosis with a pCO2 of 75 pH 7.35. There also was hypoxic with a PO2 45. Bicarb on the patient's chemistry panel was elevated consistent with probable chronic CO2 retention. CBC was unremarkable. Patient is to be admitted to the medical floor. She will be trialed off of BiPAP and if her blood gases improved, can be admitted to the medical floor. Discussed the case with Dr. Puentes of the hospitalist service Critical care time for this life-threatening illness exclusive of all other billable procedures was approximately 35 minutes including initial evaluation of the patient, ordering tests, x-ray interpretation, EKG interpretation, medical consultation, documentation, reevaluation. Lab Data Lab results reviewed: Yes I reviewed the patient's lab results. Result diagrams: 11/14/21 03:54 11/14/21 03:54 Labs: Lab Results 11/14/21 11/14/21 11/14/21 Range/Units 03:53 03:54 03:54 WBC 7.5 (4.8-10.8) X10*3/uL RBC 4.51 (4.20-5.50) X10*6/uL Hgb 13.2 (12.0-16.0) g/dl Hct 41.2 (37.0-47.0) % MCV 91.4 (80.0-98.0) fL MCH 29.3 (27.0-33.0) pg MCHC 32.0 (31.0-35.0) g/dl RDW 13.9 (11.0-16.0) % Plt Count 131 L (160-400) X10*3/uL MPV 9.7 (9.4-12.3) fL Immature Gran % (Auto) 0.3 (0.0-0.4) % Neut % (Auto) 64.8 (45-73) % Lymph % (Auto) 23.3 (20-40) % [place] % (Auto) 9.2 (2-11) % Eos % (Auto) 2.0 (0-4) % Baso % (Auto) 0.4 (0-2) % Lymph # (Auto) 1.7 (1.2-4.9) X10*3/uL [place] # (Auto) 0.7 (0.1-1.2) X10*3/uL Eos # (Auto) 0.2 (0.0-0.4) X10*3/uL Baso # (Auto) 0.0 (0.0-0.2) X10*3/uL Abs Immat Gran (auto) 0.02 (0.00-0.03) X10*3/uL Absolute Neuts (auto) 4.8 (2.0-8.3) x10*3/uL Absolute Nucleated RBC 0.000 (0.0-0.012) X10*3/uL Nucleated RBC % (auto) 0.0 (0.0-0.2) /100WBC O2 Saturation 74.0 % ABG pH at Pt Temp 7.32 L (7.35-7.45) ABG pCO2 at Pt Temp 71 H* (32-45) mmHg ABG pO2 at Pt Temp 45 L* (83-108) mmHg ABG HCO3 37 H (22-26) mmol/L ABG Base Excess (Actual) 9.0 mmol/L Sodium 139 (135-145) mmol/L Potassium 4.1 (3.3-5.1) mmol/L Chloride 102 (96-108) mmol/L Carbon Dioxide 31 H (22-29) mmol/L Anion Gap 10 L (12-20) BUN 10 (9-16) mg/dL Creatinine 0.78 (0.5-1.4) mg/dL Estim Creat Clear Calc 104.3 Estimated GFR > 60 Random Glucose 184 H (60-115) mg/dL Calcium 9.1 (8.4-10.2) mg/dL Total Bilirubin 0.4 (0.0-1.0) mg/dL AST 25 (5-31) U/L ALT 23 (0-31) U/L Alkaline Phosphatase 84 (39-117) U/L Troponin I High Sens (<3.5-17.0) ng/L B-Natriuretic Peptide (<100) pg/mL Total Protein 6.5 (6.5-8.0) g/dL Albumin 3.6 (3.5-5.0) g/dL 11/14/21 Range/Units 03:54 WBC (4.8-10.8) X10*3/uL RBC (4.20-5.50) X10*6/uL Hgb (12.0-16.0) g/dl Hct (37.0-47.0) % MCV (80.0-98.0) fL MCH (27.0-33.0) pg MCHC (31.0-35.0) g/dl RDW (11.0-16.0) % Plt Count (160-400) X10*3/uL MPV (9.4-12.3) fL Immature Gran % (Auto) (0.0-0.4) % Neut % (Auto) (45-73) % Lymph % (Auto) (20-40) % [place] % (Auto) (2-11) % Eos % (Auto) (0-4) % Baso % (Auto) (0-2) % Lymph # (Auto) (1.2-4.9) X10*3/uL [place] # (Auto) (0.1-1.2) X10*3/uL Eos # (Auto) (0.0-0.4) X10*3/uL Baso # (Auto) (0.0-0.2) X10*3/uL Abs Immat Gran (auto) (0.00-0.03) X10*3/uL Absolute Neuts (auto) (2.0-8.3) x10*3/uL Absolute Nucleated RBC (0.0-0.012) X10*3/uL Nucleated RBC % (auto) (0.0-0.2) /100WBC O2 Saturation % ABG pH at Pt Temp (7.35-7.45) ABG pCO2 at Pt Temp (32-45) mmHg ABG pO2 at Pt Temp (83-108) mmHg ABG HCO3 (22-26) mmol/L ABG Base Excess (Actual) mmol/L Sodium (135-145) mmol/L Potassium (3.3-5.1) mmol/L Chloride (96-108) mmol/L Carbon Dioxide (22-29) mmol/L Anion Gap (12-20) BUN (9-16) mg/dL Creatinine (0.5-1.4) mg/dL Estim Creat Clear Calc Estimated GFR Random Glucose (60-115) mg/dL Calcium (8.4-10.2) mg/dL Total Bilirubin (0.0-1.0) mg/dL AST (5-31) U/L ALT (0-31) U/L Alkaline Phosphatase (39-117) U/L Troponin I High Sens 21.1 H (<3.5-17.0) ng/L B-Natriuretic Peptide < 10 (<100) pg/mL Total Protein (6.5-8.0) g/dL Albumin (3.5-5.0) g/dL Imaging Data Chest x-ray: Radiologist's impression: FINDINGS: Cardiac leads overlie the chest. The lungs are well expanded. Central vascular prominence. No overt edema. No pleural effusion or pneumothorax. The cardiomediastinal silhouette is unchanged. XR/XR chest 1V IMPRESSION: Central vascular prominence without overt edema. ? ECG Data Attestation: I personally reviewed and interpreted this ECG as follows: Interpretation: Sinus rhythm with a rate of 83. Poor R-wave progression. No freida ST elevation or depression. Minimal voltage criteria for LVH. Discharge Plan Discharge Clinical Impression: Acute respiratory failure with hypoxia and hypercarbia, Somnolence, Chronic venous stasis dermatitis Patient Disposition: Admitted As Inpatient Prescriptions: No Action gabapentin 300 mg Capsule 600 mg PO TID sertraline 100 mg Tablet 100 mg PO DAILY prednisone 50 mg tablet 50 mg PO DAILY 5 Days Qty: 5 0RF albuterol 90 mcg/actuation Aerosol 180 mcg INHALATION Q4H PRN (Reason: Shortness Of Breath) haloperidol 0.5 mg Tablet 0.5 mg PO DAILY PRN (Reason: Agitation) haloperidol 0.5 mg Tablet 0.5 mg PO DAILY polyethylene glycol 3350 [Miralax] 17 gram Powder In Packet 17 g PO DAILY prazosin 1 mg Capsule 1 mg PO BEDTIME haloperidol 1 mg Tablet 1 mg PO BEDTIME amlodipine 5 mg Tablet 5 mg PO DAILY trazodone 300 mg Tablet 300 mg PO BEDTIME lisinopril 30 mg Tablet 30 mg PO DAILY docusate sodium [Stool Softener] 100 mg Capsule 100 mg PO BID nystatin [Nyamyc] 100,000 unit/gram Powder 1 applic TOPICAL BID Excedrin Migraine 250-250-65 mg Tablet 2 tab PO DAILY PRN (Reason: Headache) loratadine [Claritin] 10 mg Tablet 10 mg PO DAILY prazosin 2 mg Capsule 2 mg PO BEDTIME lamotrigine 50 mg Tablet Extended Release 24hr 50 mg PO DAILY buprenorphine-naloxone [Suboxone] 8-2 mg Film 1 film BUCCAL DAILY Stiolto Respimat 2.5-2.5 mcg/actuation Mist 2 puff INHALATION DAILY cefuroxime axetil 500 mg tablet 500 mg PO BID Qty: 14 0RF doxycycline monohydrate 100 mg capsule 100 mg PO DAILY Qty: 14 0RF
[2021-11-14 03:59] LABS: MANUAL DIFF FLAG NO
[2021-11-14 04:00] LABS: ABG HCO3 37 mmol/L (22-26); ABG pCO2 71 mmHg (32-45); ABG pH 7.32 (7.35-7.45); ABG pO2 45 mmHg (83-108)
[2021-11-14 04:01] LABS: ABG Refer to POC result
[2021-11-14 04:02] LABS: Basophils Percent Auto 0.4 % (0-2); Hemoglobin 13.2 g/dl (12.0-16.0); Mean Corpuscular Hemoglobin 29.3 pg (27.0-33.0); PLT CLUMP 1; Red Cell Distribution Width 13.9 % (11.0-16.0); SCAN SMEAR FLAG 1
[2021-11-14 04:04] LABS: Eosinophils Absolute Auto 0.2 X10*3/uL (0.0-0.4); Hematocrit 41.2 % (37.0-47.0); Imm Gran Abs Auto 0.02 X10*3/uL (0.00-0.03); Imm Gran Pct Auto 0.3 % (0.0-0.4); Lymphocytes Absolute Auto 1.7 X10*3/uL (1.2-4.9); Lymphocytes Percent Auto 23.3 % (20-40); Mean Corpuscular Volume 91.4 fL (80.0-98.0); Mean Platelet Volume 9.7 fL (9.4-12.3); Monocytes Absolute Auto 0.7 X10*3/uL (0.1-1.2); Monocytes Percent Auto 9.2 % (2-11); Neutrophils Absolute Auto 4.8 x10*3/uL (2.0-8.3); Neutrophils Percent Auto 64.8 % (45-73); Red Blood Count 4.51 X10*6/uL (4.20-5.50)
[2021-11-14] MEDS: Naloxone HCl 0.4 MG/ML VIAL IM (04:06)
[2021-11-14 04:10] LABS: White Blood Count 7.5 X10*3/uL (4.8-10.8)
[2021-11-14 04:11] LABS: Platelet Count 131 X10*3/uL (160-400)
--- NOTE | 2021-11-14 04:13 | PC.NURSE ---
Patient very sleepy and CO2 very high. Per MD [place] IM ordered. Narcan had no effect on patient. Respiratory in to put patient on bipap.
[2021-11-14 04:21] LABS: B Type Natriuretic Peptide < 10 pg/mL (<100); Troponin-I High Sensitivity 21.1 ng/L (<3.5-17.0)
[2021-11-14 04:25] LABS: Alanine Aminotransferase 23 U/L (0-31); Albumin Level 3.6 g/dL (3.5-5.0); Alkaline Phosphatase 84 U/L (39-117); Anion Gap 10 (12-20); Aspartate Amino Transferase 25 U/L (5-31); Bilirubin Total 0.4 mg/dL (0.0-1.0); Blood Urea Nitrogen 10 mg/dL (9-16); Calcium 9.1 mg/dL (8.4-10.2); Carbon Dioxide 31 mmol/L (22-29); Chloride 102 mmol/L (96-108); Creatinine Clr Calc Pharmacy 104.3; Estimated Glomerular Filt Rate > 60; Glucose Random 184 mg/dL (60-115); Potassium 4.1 mmol/L (3.3-5.1); Sodium 139 mmol/L (135-145); Total Protein 6.5 g/dL (6.5-8.0)
--- NOTE | 2021-11-14 04:43 | ECG_ITS ---
Test Reason : sob Blood Pressure : / mmHG Vent. Rate : 083 BPM Atrial Rate : 083 BPM P-R Int : 146 ms QRS Dur : 094 ms QT Int : 396 ms P-R-T Axes : 074 001 053 degrees QTc Int : 465 ms Normal sinus rhythm Minimal voltage criteria for LVH, may be normal variant ( [place] product ) Cannot rule out Anterior infarct (cited on or before 14-NOV-2021) Abnormal ECG When compared with ECG of 21-FEB-2020 22:38, No significant changes seen Referred By: Porter Fernandez Electronically Signed By:DENZEL HERNÁNDEZ
[2021-11-14 05:55] LABS: COVID-19 Test Negative (Negative)
--- NOTE | 2021-11-14 08:06 | PC.NURSE ---
BiPap taken off of pt at this time. Tolerating well. No SOB at rest, c/o some neck pain. Pt appears somewhat drowsy, will continue to monitor
--- NOTE | 2021-11-14 08:58 | PHA.MEDREC ---
Pharmacy Consult ? Medication Reconciliation Pharmacy has completed the medication reconciliation. Contacted patient's residential [phone]. They confirmed all patient's medications. Lizeth Werner, PharmD
[2021-11-14 10:32] LABS: ABG Base Excess 6.7 mmol/L; ABG HCO3 34 mmol/L (22-26); ABG pCO2 58 mmHg (32-45); ABG pH 7.36 (7.35-7.45); ABG pO2 50 mmHg (83-108)
--- NOTE | 2021-11-14 11:01 | ECG_ITS ---
Test Reason : cp Blood Pressure : / mmHG Vent. Rate : 085 BPM Atrial Rate : 085 BPM P-R Int : 144 ms QRS Dur : 088 ms QT Int : 416 ms P-R-T Axes : 065 009 053 degrees QTc Int : 495 ms Normal sinus rhythm with sinus arrhythmia Minimal voltage criteria for LVH, may be normal variant ( [place] product ) Cannot rule out Anterior infarct (cited on or before 14-NOV-2021) Abnormal ECG When compared with ECG of 14-NOV-2021 04:52, No significant change was found Referred By: Giancarlo Parada Electronically Signed By:Wallace Duffy
[2021-11-14 11:13] LABS: ABG Refer to POC result
[2021-11-14] MEDS: Aspirin 81 MG TAB.CHEW 324 MG PO (11:31)
--- NOTE | 2021-11-14 11:34 | PC.NURSE ---
Pt remains very somnolnt though is able to awake to take pills. She is alert and oriented and follows commands. Sats 97% on 3liters NC.
--- NOTE | 2021-11-14 14:25 | PM.IMHP ---
History of Present Illness Date of Service: 11/14/21 Chief Complaint: Acute hypoxic hypercapnic failure, altered mentation A 51 years old lady with PMH of COPD, smoker, HTN, anxiety who presents to the hospital with altered mentation shortness of breath. She was noted to low oxygen level by EMS at time of presentation. The patient reports that she has been feeling short of breath for the last 2 days that has been worsening on her baseline were she walks around usually with no restrictions. She reports active smoking of half a pack a day since she turned 11. Denies any fever, chills, chest pain, change in bowel habit, nausea or vomiting or urinary symptoms. Upon arrival to the emergency she was somnolent, hypoxic and hyperventilating. ABG showed evidence of hypercapnic respiratory failure requiring placement on BiPAP with good response as her mentation improved. CXR negative for any acute findings. Next [place] will be admitted for further evaluation and treatment. Review of Systems Review of Systems: No fever, chills but reports generalized weakness No chest pain, palpitation Having more shortness of breath and wheezes No abdominal pain, nausea or vomiting No urinary symptoms No any rash or wounds PMFSH Medical History Asthma COPD (chronic obstructive pulmonary disease) Hypertension Surgical History H/O neck surgery Social History Household Members: Other Housing: Other Do you presently have visiting nurse or other home services: Yes Alcohol intake: unknown Patient Tobacco Use Status: Current everyday Tobacco user Smoked in Last 30 Days: Yes Second Hand Smoke Exposure: Yes Use of substances other than those prescribed or required for medical reasons: No Advance Directives: No Advance Directives Information Provided: Yes Patient : No service: No Current occupational status: unemployed Meds Allergies Allergy/AdvReac Type Severity Reaction Status Date / Time codeine [CODEINE] AdvReac Mild RASH Verified 02/21/20 20:31 oxycodone [From OXYCONTIN] AdvReac Mild RASH Verified 02/21/20 20:31 Active Medications: Current Medications Acetaminophen (Acetaminophen 325 Mg Tablet) 650 mg PO Q6H PRN PRN Reason: Pain, Mild (Pain Scale 1-3) Albuterol Sulfate (Albuterol Sulfate (0.083%) 2.5 Mg/3 Ml Vial.Neb) 2.5 mg INHALE QID PRN PRN Reason: Wheezing Albuterol/Ipratropium (Albuterol/Iprat 2.5/0.5mg 3 Ml Ampul.Neb) 3 ml INHALE RQ4H WHILE AWAKE [facility] Amlodipine Besylate (Amlodipine Besylate 5 Mg Tablet) 5 mg PO DAILY [facility]; Protocol Azithromycin (Azithromycin 250 Mg Tablet) 250 mg PO DAILY [facility] Buprenorphine/Naloxone (Buprenorphine/Naloxone 8/2 Mg Film) 1 film BUCCAL DAILY@1200 [facility] Buspirone HCl (Buspirone Hcl 10 Mg Tablet) 10 mg PO BID [facility] Enoxaparin Sodium (Enoxaparin Sodium 40 Mg/0.4 Ml Syringe) 40 mg SUBCUT Q24H [facility] Famotidine (Famotidine 20 Mg Tablet) 20 mg PO DAILY [facility] Fluticasone Propionate (Fluticasone Propionate Nasal 16 Gm Treece) 1 spray NOSTRIL-B BID [facility] Gabapentin (Gabapentin 100 Mg Capsule) 100 mg PO QID [facility] Haloperidol (Haloperidol 0.5 Mg Tablet) 0.5 mg PO DAILY [facility] Haloperidol (Haloperidol 0.5 Mg Tablet) 0.5 mg PO BEDTIME [facility] Hydralazine HCl (Hydralazine Hcl 10 Mg Tablet) 20 mg PO TID [facility]; Protocol Insulin Human Lispro (Insulin Lispro 100 Unit/Ml 3 Ml Vial) 0 unit SUBCUT QIDACHS [facility]; Protocol Lactic Acid (Ammonium Lactate 12 % Cream 140 Gm Tube) 1 appl TOPICAL BID [facility]; Protocol Lamotrigine (Lamotrigine 100 Mg Tablet) 100 mg PO BID [facility] Lisinopril (Lisinopril 40 Mg Tablet) 40 mg PO DAILY [facility]; Protocol Methylprednisolone Sodium Succinate (Methylprednisolone Sod Succ 40 Mg/Ml Vial) 40 mg IVPUSH Q12H [facility] Ondansetron HCl (Ondansetron Hcl 4 Mg/2 Ml Vial) 4 mg IVPUSH Q8H PRN PRN Reason: Nausea and Vomiting Prazosin HCl (Prazosin Hcl 1 Mg Capsule) 2 mg PO BEDTIME [facility]; Protocol Prazosin HCl (Prazosin Hcl 1 Mg Capsule) 1 mg PO DAILY [facility]; Protocol Sertraline HCl (Sertraline Hcl 100 Mg Tablet) 100 mg PO DAILY [facility] Sodium Chloride (0.9 % Sodium Chloride Flush 3 Ml Syringe) 3 ml IVFLUSH QSHIFT [facility] Trazodone HCl (Trazodone Hcl 50 Mg Tablet) 50 mg PO BEDTIME [facility] Home Medications Medication Instructions Recorded Confirmed Last Taken Type sertraline 100 mg tablet 100 mg PO DAILY 02/21/20 11/14/21 Unknown History amlodipine 5 mg tablet 5 mg PO DAILY 02/22/20 11/14/21 Unknown History buprenorphine 8 mg-naloxone 2 mg 1 film buccal DAILY@1200 02/22/20 11/14/21 Unknown History sublingual film (Suboxone) haloperidol 0.5 mg tablet 0.5 mg PO BID@0900,1400 02/22/20 11/14/21 Unknown History haloperidol 1 mg tablet 2 mg PO BEDTIME 02/22/20 11/14/21 Unknown History nystatin 100,000 unit/gram topical 1 applic topical TID 02/22/20 11/14/21 Unknown History powder ([facility]) prazosin 1 mg capsule 2 mg PO BEDTIME 02/22/20 11/14/21 Unknown History albuterol sulfate 3 ml inhalation QID PRN Wheezing 11/14/21 11/14/21 Unknown History ammonium lactate 12 % topical cream 1 appl topical BID 11/14/21 11/14/21 Unknown History buspirone 10 mg tablet 1 tab PO BID 11/14/21 11/14/21 Unknown History cetirizine 5 mg tablet 2 tab PO DAILY 11/14/21 11/14/21 Unknown History famotidine 20 mg tablet 1 tab PO DAILY 11/14/21 11/14/21 Unknown History fluticasone 100 mcg-salmeterol 50 1 puff inhalation BID 11/14/21 11/14/21 Unknown History mcg/dose blistr powdr for inhalation (Advair Diskus) fluticasone propionate 50 1 spray intranasal BID 11/14/21 11/14/21 Unknown History mcg/actuation nasal spray,suspension gabapentin 400 mg capsule 400 mg PO QID 11/14/21 11/14/21 Unknown History hydralazine 10 mg tablet 2 tab PO TID 11/14/21 11/14/21 Unknown History lamotrigine 100 mg tablet 1 tab PO BID 11/14/21 11/14/21 Unknown History lisinopril 40 mg tablet 1 tab PO DAILY 11/14/21 11/14/21 Unknown History metformin 500 mg tablet 1 tab PO DAILY 11/14/21 11/14/21 Unknown History prazosin 1 mg capsule 1 mg PO DAILY 11/14/21 11/14/21 Unknown History tiotropium bromide 18 mcg capsule 1 cap inhalation DAILY 11/14/21 11/14/21 Unknown History with inhalation device (Spiriva with HandiHaler) trazodone 150 mg tablet 300 mg PO BEDTIME 11/14/21 11/14/21 Unknown History Physical Exam Vital Signs and Narrative: Vital Signs: Last Vital Signs Temp 98.1 F 11/14/21 02:39 Pulse 63 11/14/21 12:08 Resp 14 11/14/21 12:08 BP 130/70 11/14/21 12:08 Pulse Ox 97 11/14/21 12:08 O2 Del Method 11/14/21 12:08 O2 Flow Rate 3 11/14/21 12:08 BMI result Body Mass Index 38.0 Const: Other: Constitutional : Alert with stimulation, falls back to sleep quickly Neck : Normal inspection, Supple Cardiovascular : RRR, no JVP, no lower extremity edema Respiratory : fair bilateral air entry, no crackles, bilateral scattered wheezes Gastrointestinal: soft, lax, Normal bowel sounds, Non tender Skin : Warm, Dry Neurological : Alert with stimulation & oriented x3, No focal deficit , Results Labs CBC and Chem 7: 11/14/21 03:54 11/14/21 03:54 Labs: Laboratory Results - last 24 hr 11/14/21 11/14/21 11/14/21 03:53 03:54 03:54 MCV 91.4 MCH 29.3 MCHC 32.0 RDW 13.9 Plt Count 131 L MPV 9.7 Immature Gran % (Auto) 0.3 Neut % (Auto) 64.8 Lymph % (Auto) 23.3 [place]ff[place] % (Auto) 9.2 Eos % (Auto) 2.0 Baso % (Auto) 0.4 Lymph # (Auto) 1.7 [place] # (Auto) 0.7 Eos # (Auto) 0.2 Baso # (Auto) 0.0 Abs Immat Gran (auto) 0.02 Absolute Neuts (auto) 4.8 Absolute Nucleated RBC 0.000 Nucleated RBC % (auto) 0.0 O2 Saturation 74.0 ABG pH at Pt Temp 7.32 L ABG pCO2 at Pt Temp 71 H* ABG pO2 at Pt Temp 45 L* ABG HCO3 37 H ABG Base Excess (Actual) 9.0 Anion Gap 10 L Estim Creat Clear Calc 104.3 Estimated GFR > 60 Random Glucose 184 H Calcium 9.1 Total Bilirubin 0.4 AST 25 ALT 23 Alkaline Phosphatase 84 Troponin I High Sens B-Natriuretic Peptide Total Protein 6.5 Albumin 3.6 COVID-19 ([facility]) COVID-19 Clin Com 11/14/21 11/14/21 11/14/21 03:54 05:35 10:26 MCV MCH MCHC RDW Plt Count MPV Immature Gran % (Auto) Neut % (Auto) Lymph % (Auto) [place]ff[place] % (Auto) Eos % (Auto) Baso % (Auto) Lymph # (Auto) [place] # (Auto) Eos # (Auto) Baso # (Auto) Abs Immat Gran (auto) Absolute Neuts (auto) Absolute Nucleated RBC Nucleated RBC % (auto) O2 Saturation 79.0 ABG pH at Pt Temp 7.36 ABG pCO2 at Pt Temp 58 H ABG pO2 at Pt Temp 50 L* ABG HCO3 34 H ABG Base Excess (Actual) 6.7 Anion Gap Estim Creat Clear Calc Estimated GFR Random Glucose Calcium Total Bilirubin AST ALT Alkaline Phosphatase Troponin I High Sens 21.1 H B-Natriuretic Peptide < 10 Total Protein Albumin COVID-19 ([facility]) Negative COVID-19 Clin Com See Note 11/14/21 10:28 MCV MCH MCHC RDW Plt Count MPV Immature Gran % (Auto) Neut % (Auto) Lymph % (Auto) [place] % (Auto) Eos % (Auto) Baso % (Auto) Lymph # (Auto) [place] # (Auto) Eos # (Auto) Baso # (Auto) Abs Immat Gran (auto) Absolute Neuts (auto) Absolute Nucleated RBC Nucleated RBC % (auto) O2 Saturation ABG pH at Pt Temp ABG pCO2 at Pt Temp ABG pO2 at Pt Temp ABG HCO3 ABG Base Excess (Actual) Anion Gap Estim Creat Clear Calc Estimated GFR Random Glucose Calcium Total Bilirubin AST ALT Alkaline Phosphatase Troponin I High Sens 58.0 H* D B-Natriuretic Peptide Total Protein Albumin COVID-19 ([facility]) COVID-19 Clin Com Imaging Radiologist's Impressions: Impressions Chest X-Ray 11/14/21 03:30 IMPRESSION: Central vascular prominence without overt edema. Assessment and Plan (1) Acute respiratory failure with hypoxia and hypercarbia: Status: Acute (2) Somnolence: Status: Acute (3) Acute exacerbation of chronic obstructive airways disease: Status: Acute (4) Toxic metabolic encephalopathy: Status: Acute Plan A 51 years old lady with PMH of COPD, smoker, HTN, anxiety who presents to the hospital with altered mentation shortness of breath. She was noted to low oxygen level by EMS at time of presentation. Acute hypoxic hypercapnic respiratory failure Secondary to COPD exacerbation, home meds Somnolent at time of presentation, received multiple medications Wean oxygen down as tolerated Duo nebs ATC and p.r.n. Azithromycin Methylprednisolone Overnight oximetry To use BiPAP at night pulmonology consult Elevated troponin EKG negative for any acute findings denies any chest pain Likely secondary to hypoxia, demand mediated Will get an echo Toxic metabolic encephalopathy Secondary to hypercapnia, multiform a seen Cut down gabapentin, Haldol, trazodone continue lamotrigine Type 2 diabetes Hold p.o. SSI, diabetic diet DVT PPX Lovenox The patient will need 2 overnight hospital stay for Treatment of acute hypoxic respiratory failure, COPD exacerbation pending safe discharge plan Quality Stroke Does the patient have a stroke diagnosis?: No VTE Prior VTE?: No VTE Risk Level:: Medical - moderate - high VTE Device Contraindication: Treatment Not Indicated VTE Drug Contraindication: N/A - Med Ordered
[2021-11-14] MEDS: hydrALAZINE HCl 10 MG TABLET 20 MG PO ×2 (14:45→22:02)
[2021-11-14] MEDS: Azithromycin 500 MG TABLET PO (14:45)
[2021-11-14] MEDS: methylPREDNISolone Sod Succ 125 MG/2 ML VIAL IVPUSH (14:47)
[2021-11-14] MEDS: 0.9 % Sodium Chloride Flush 3 ML SYRINGE IVFLUSH ×2 (14:47→23:27)
[2021-11-14] MEDS: Enoxaparin Sodium 40 MG/0.4 ML SYRINGE SUBCUT (14:47)
--- NOTE | 2021-11-14 14:59 | PC.NURSE ---
Pt OOB to commode with minimal assist
[2021-11-14] MEDS: Gabapentin 100 MG CAPSULE PO ×2 (17:15→22:04)
[2021-11-14 17:17] LABS: Glucose, Whole Blood 154 mg/dL (60-115)
[2021-11-14 19:39] LABS: Glucose, Whole Blood 173 mg/dL (60-115)
[2021-11-14] MEDS: busPIRone HCl 10 MG TABLET PO (22:01)
[2021-11-14] MEDS: lamoTRIgine 100 MG TABLET PO (22:02)
[2021-11-14] MEDS: HaloperidoL 0.5 MG TABLET PO (22:03)
--- NOTE | 2021-11-14 22:07 | PC.NURSE ---
Patient refusing all her medication because she was only ordered 50mg of Trazodone instead of 300 mg which is her normal dose. Patient brought in for altered mental status last night and shortness of breath. Hospitalist aware and will be down to talk to the paitent. Patient states if she does not receive her 300 mg of Trazodone then she will go home
[2021-11-14 23:15] LABS: Glucose, Whole Blood 241 mg/dL (60-115)
[2021-11-14] MEDS: traZODone HCL 100 MG TABLET 300 MG PO (23:50)
[2021-11-15 03:11] VITALS: BP 144/69; PULSE 67; RESP 17; TEMP 36.1; O2SAT 92
[2021-11-15 04:20] LABS: ABG Base Excess 5.6 mmol/L; ABG HCO3 30 mmol/L (22-26); ABG pCO2 45 mmHg (32-45); ABG pH 7.43 (7.35-7.45); ABG pO2 69 mmHg (83-108)
[2021-11-15 04:49] VITALS: O2SAT 92
[2021-11-15 06:05] LABS: Hematocrit 44.5 % (37.0-47.0); Hemoglobin 14.6 g/dl (12.0-16.0); Mean Corpuscular HGB Conc 32.8 g/dl (31.0-35.0); Mean Corpuscular Hemoglobin 29.3 pg (27.0-33.0); Mean Corpuscular Volume 89.4 fL (80.0-98.0); Mean Platelet Volume 10.2 fL (9.4-12.3); Platelet Count 130 X10*3/uL (160-400); Red Blood Count 4.98 X10*6/uL (4.20-5.50); Red Cell Distribution Width 13.5 % (11.0-16.0); White Blood Count 7.6 X10*3/uL (4.8-10.8)
[2021-11-15 06:22] LABS: Anion Gap 10 (12-20); Blood Urea Nitrogen 11 mg/dL (9-16); Calcium 9.7 mg/dL (8.4-10.2); Carbon Dioxide 30 mmol/L (22-29); Chloride 105 mmol/L (96-108); Creatinine Clr Calc Pharmacy 119.8; Estimated Glomerular Filt Rate > 60; Glucose Random 137 mg/dL (60-115); Potassium 4.3 mmol/L (3.3-5.1); Sodium 141 mmol/L (135-145)
--- NOTE | 2021-11-15 07:00 | CA_ITS ---
Transthoracic Echocardiogram Patient (Last, First, Middle): Marcela Dela Cruz, Gender: Female Date of : 1970 Age: 51 Procedure Date: 11/15/2021 Procedure Type: Transthoracic [place] [facility] [place]: 167.64 cm Weight: 109.77 kg BSA: 2.17 m2 Heart Rate: bpm BP: 144 / 69 mmHg Investigator Fraud: Referring MD: Mony Pastor MD Symptoms: Acute respiratory failure Study Quality: Fair ECG Rhythm: Sinus Conclusions: - Normal left ventricular cavity size. There is mildly increased left ventricular wall thickness. The left ventricular systolic function is hyperdynamic. The visually estimated ejection fraction is between 65-70%. - E/E prime ratio is between 8 and 15 consistent with indeterminate filling pressures. - Mildly increased right ventricular cavity size. There is normal right ventricular systolic function. - There is mild dilatation of the ascending aorta measuring 3.30 cm. - The inferior vena cava is dilated and collapses less than 50% with inspiration. Findings Left Ventricle Normal left ventricular cavity size. There is mildly increased left ventricular wall thickness. The left ventricular systolic function is hyperdynamic. The visually estimated ejection fraction is between 65-70%. There is no evidence of regional wall motion abnormalities. Abnormal diastolic function is noted. Spectral Doppler is indicative of a pseudonormal filling pattern. E/E prime ratio is between 8 and 15 consistent with indeterminate filling pressures. Right Ventricle Mildly increased right ventricular cavity size. There is normal right ventricular systolic function. Atria The left atrium is normal in size. Aortic Valve The aortic valve was not well visualized. There is no aortic valve stenosis. There is no aortic valve regurgitation. Mitral Valve Normal mitral valve structure and function. There is no mitral valve regurgitation. There is no mitral valve stenosis. Pulmonic Valve The pulmonic valve is likely normal. There is no pulmonic valve regurgitation. Tricuspid Valve Normal tricuspid valve structure and function. There is trace tricuspid valve regurgitation. Moderately elevated right atrial pressure. There is no evidence of pulmonary hypertension. Great Vessels There is mild dilatation of the ascending aorta measuring 3.30 cm. The visualized portions of the pulmonary artery and branches are normal. Venous The inferior vena cava is dilated and collapses less than 50% with inspiration. Pericardium/Pleural There is no evidence of pericardial effusion. Measurements 2D Linear Measurements IVSd: 1.04 0.6-0.9/0.6-1.0 cm LVIDd: 4.39 3.9-5.3/4.2-5.9 cm LVIDd Index: 2.02 2.4-3.2/2.2-3.1 cm/m2 LVIDs: 2.40 2.0-3.6 cm LVPWd: 1.03 0.7-1.1 cm Ao Root: 2.70 2.1-3.5 cm LA Diam: 3.80 2.7-3.8/3.0-4.0 cm LAIDs Index: 1.75 1.5-2.3 cm/m2 LV Mass: 192.38 67-162/88-224 g LV Mass Index: 88.65 43-95/49-115 g/m2 LVOT Diam: 2.00 3.0+(-)1.3 cm Mitral Valve MV Pk E: 1.24 MV PK A: 0.97 MV Decel Time: 165.00 E/A: 1.30 E'Lateral: 9.36 E'Medial: 8.38 E/E' Med: 14.80 E/E' Lat: 13.20 PHT: 48.00 MVA PHT: 4.58 Decel [place]: 7.48 Aortic Valve AoV Pk Hira: 1.68 AoV Mn Hira: 0.94 AoV VTI: 0.31 AoV Pk Grad: 11.00 Aov Mn Grad: 4.00 KAT Cont.VTI: 3.63 LVOT LVOT Pk Hira: 1.53 LVOT Mn Hira: 1.00 LVOT VTI: 0.35 LVOT Pk Grad: 9.00 LVOT Mn Grad: 5.00 LVOT Diam: 2.00 LVOT Area: 3.14 Diastolic Function MV Pk E: 1.24 MV Pk A: 0.97 E/A: 1.30 E'Medial: 8.38 E/E' Med: 14.80 E' Laterial: 9.36 E/E' Lat: 13.20 Right Ventricle TAPSE (mm): 30.00 Tricuspid Valve TR Pk Hira: 2.15 TR Pk Grad: 18.00 RA Press: 3.00 RVSP: 21.00 Great Vessels Aorta Ao Root-2D: 2.70 2.0-3.7 cm Ao Asc: 3.30 2.1-3.4 cm Pulmonary Valve PV Pk Hira: 1.19 Peak PV Grad: 6.00 Updated in Other Vendor System with Status of Final Wallace Duffy MD electronically signed on 11/16/2021 5:11:35 PM with status of Final
[2021-11-15 07:26] VITALS: BP 158/74; PULSE 67; TEMP 37.2; O2SAT 93
[2021-11-15 07:32] LABS: Glucose, Whole Blood 110 mg/dL (60-115)
[2021-11-15] MEDS: methylPREDNISolone Sod Succ 40 MG/ML VIAL IVPUSH (07:39)
[2021-11-15] MEDS: Azithromycin 250 MG TABLET PO (07:39)
[2021-11-15] MEDS: busPIRone HCl 10 MG TABLET PO (07:40)
[2021-11-15] MEDS: lamoTRIgine 100 MG TABLET PO (07:40)
[2021-11-15] MEDS: Prazosin HCL 1 MG CAPSULE PO (07:40)
[2021-11-15] MEDS: hydrALAZINE HCl 10 MG TABLET 20 MG PO (07:40)
[2021-11-15] MEDS: amLODIPine Besylate 5 MG TABLET PO (07:40)
[2021-11-15] MEDS: lisinopriL 40 MG TABLET PO (07:40)
[2021-11-15] MEDS: Sertraline HCL 100 MG TABLET PO (07:40)
[2021-11-15] MEDS: Gabapentin 100 MG CAPSULE PO ×2 (07:40→12:38)
[2021-11-15] MEDS: Famotidine 20 MG TABLET PO (07:41)
[2021-11-15] MEDS: HaloperidoL 0.5 MG TABLET PO (07:41)
[2021-11-15] MEDS: 0.9 % Sodium Chloride Flush 3 ML SYRINGE IVFLUSH (07:45)
--- NOTE | 2021-11-15 09:39 | MHC.CM.PN ---
PATIENT IS IN FROM LONG TERM SETTING. SHE WILL DC TODAY STAFF MEMBER [facility] [phone] WILL PROVIDE TRANSPORT. FORMS FOR COMPLETION LEFT WITH HOSPITALIST.
[2021-11-15 11:54] VITALS: BP 163/70; PULSE 78; RESP 18; TEMP 36.6; O2SAT 95
[2021-11-15] MEDS: Acetaminophen 325 MG TABLET 650 MG PO (12:05)
[2021-11-15 12:06] LABS: Glucose, Whole Blood 169 mg/dL (60-115)
--- NOTE | 2021-11-15 12:50 | P.CONPL_ITS ---
History of Present Illness History of Present Illness Consult date: 11/15/21 Chief complaint: altered mentation hypoxia Narrative: 51-year-old lady, active 30 pack-year smoker, with underlying emphysema and likely COPD, followed by Dr. Miramontes at [facility], not on maintenance bronchodilators hospitalized with acute hypoxic and hypercapnic respiratory failure likely secondary to over-sedation initially briefly requiring BiPAP, now titrated off. Patient states that her respiratory symptoms have resolved and she is back to her baseline. Review of Systems Constitutional: Constitutional: Denies daytime sleepiness, Denies excessive sweating, Denies fatigue, Denies fever(s), Denies lethargy, Denies malaise, Denies night sweats, Denies snoring and Denies weight loss Eyes: Eyes: Denies blurry vision and Denies itchy eyes ENT: Denies nasal congestion, Denies post nasal drip, Denies sinus pain, Denies sinus pressure and Denies other ( Thrush) Cardiovascular: Cardiovascular: Denies chest pain, Denies pedal edema, Denies dyspnea, Denies orthopnea and Denies paroxysmal nocturnal dyspnea Respiratory: Respiratory: Denies cough, Denies hemoptysis, Denies excessive phlegm production, Denies dyspnea, Denies snoring and Denies wheezing Gastrointestinal: Gastrointestinal: Denies abdominal pain and Denies heartburn Musculoskeletal: Musculoskeletal: Denies myalgias, Denies arthralgias and Denies joint swelling Integumentary/Breasts: Skin/Breast: Denies rash Neurologic: Denies memory loss and Denies seizure-like activity Psychiatric: Psychiatric: Denies abnormal sleep pattern, Denies anxiety and Denies memory loss Endocrine: Endocrine: Denies excessive sweating, Denies fatigue and Denies heat intolerance Hematologic/Lymphatic: Hematologic/Lymphatic: Denies easy bruising Allergic/Immunologic: Allergic/Immunologic: Denies itchy eyes, Denies seasonal rhinorrhea and Denies wheezing PMFSH Past Medical History Medical History (Updated 11/15/21 @ 13:29 by Yemi Selby MD) Asthma COPD (chronic obstructive pulmonary disease) Hypertension Surgical History Surgical History H/O neck surgery Social History Social History Household Members: Other Housing: Other Do you presently have visiting nurse or other home services: Yes Alcohol intake: unknown Patient Tobacco Use Status: Current everyday Tobacco user Second Hand Smoke Exposure: Yes service: No Current occupational status: unemployed Meds Allergies Allergy/AdvReac Type Severity Reaction Status Date / Time codeine [CODEINE] AdvReac Mild RASH Verified 02/21/20 20:31 oxycodone [From OXYCONTIN] AdvReac Mild RASH Verified 02/21/20 20:31 Active Medications: Current Medications Acetaminophen (Acetaminophen 325 Mg Tablet) 650 mg PO Q6H PRN PRN Reason: Pain, Mild (Pain Scale 1-3) Last Admin: 11/15/21 12:05 Dose: 650 mg Albuterol Sulfate (Albuterol Sulfate (0.083%) 2.5 Mg/3 Ml Vial.Neb) 2.5 mg INHALE QID PRN PRN Reason: Wheezing Albuterol/Ipratropium (Albuterol/Iprat 2.5/0.5mg 3 Ml Ampul.Neb) 3 ml INHALE RQ4H WHILE AWAKE [facility] Last Admin: 11/15/21 07:49 Dose: Not Given Amlodipine Besylate (Amlodipine Besylate 5 Mg Tablet) 5 mg PO DAILY [facility]; Protocol Last Admin: 11/15/21 07:40 Dose: 5 mg Azithromycin (Azithromycin 250 Mg Tablet) 250 mg PO DAILY [facility] Last Admin: 11/15/21 07:39 Dose: 250 mg Buprenorphine/Naloxone (Buprenorphine/Naloxone 8/2 Mg Film) 0.5 film BUCCAL DAILY@1200 ELAN Buspirone HCl (Buspirone Hcl 10 Mg Tablet) 10 mg PO BID [facility] Last Admin: 11/15/21 07:40 Dose: 10 mg Enoxaparin Sodium (Enoxaparin Sodium 40 Mg/0.4 Ml Syringe) 40 mg SUBCUT Q24H [facility] Last Admin: 11/14/21 14:47 Dose: 40 mg Famotidine (Famotidine 20 Mg Tablet) 20 mg PO DAILY [facility] Last Admin: 11/15/21 07:41 Dose: 20 mg Fluticasone Propionate (Fluticasone Propionate Nasal 16 Gm [place]) 1 spray NOSTRIL-B BID [facility] Last Admin: 11/15/21 07:50 Dose: Not Given Gabapentin (Gabapentin 100 Mg Capsule) 100 mg PO QID [facility] Last Admin: 11/15/21 12:38 Dose: 100 mg Haloperidol (Haloperidol 0.5 Mg Tablet) 0.5 mg PO DAILY [facility] Last Admin: 11/15/21 07:41 Dose: 0.5 mg Haloperidol (Haloperidol 0.5 Mg Tablet) 0.5 mg PO BEDTIME [facility] Last Admin: 11/14/21 22:03 Dose: 0.5 mg Hydralazine HCl (Hydralazine Hcl 10 Mg Tablet) 20 mg PO TID [facility]; Protocol Last Admin: 11/15/21 07:40 Dose: 20 mg Insulin Human Lispro (Insulin Lispro 100 Unit/Ml 3 Ml Vial) 0 unit SUBCUT QIDACHS [facility]; Protocol Last Admin: 11/15/21 12:07 Dose: Not Given Lactic Acid (Ammonium Lactate 12 % Cream 140 Gm Tube) 1 appl TOPICAL BID [facility]; Protocol Last Admin: 11/15/21 07:50 Dose: Not Given Lamotrigine (Lamotrigine 100 Mg Tablet) 100 mg PO BID [facility] Last Admin: 11/15/21 07:40 Dose: 100 mg Lisinopril (Lisinopril 40 Mg Tablet) 40 mg PO DAILY [facility]; Protocol Last Admin: 11/15/21 07:40 Dose: 40 mg Methylprednisolone Sodium Succinate (Methylprednisolone Sod Succ 40 Mg/Ml Vial) 40 mg IVPUSH Q12H [facility] Last Admin: 11/15/21 07:39 Dose: 40 mg Ondansetron HCl (Ondansetron Hcl 4 Mg/2 Ml Vial) 4 mg IVPUSH Q8H PRN PRN Reason: Nausea and Vomiting Prazosin HCl (Prazosin Hcl 1 Mg Capsule) 2 mg PO BEDTIME [facility]; Protocol Last Admin: 11/14/21 23:26 Dose: Not Given Prazosin HCl (Prazosin Hcl 1 Mg Capsule) 1 mg PO DAILY [facility]; Protocol Last Admin: 11/15/21 07:40 Dose: 1 mg Sertraline HCl (Sertraline Hcl 100 Mg Tablet) 100 mg PO DAILY [facility] Last Admin: 11/15/21 07:40 Dose: 100 mg Sodium Chloride (0.9 % Sodium Chloride Flush 3 Ml Syringe) 3 ml IVFLUSH QSHIFT [facility] Last Admin: 11/15/21 07:45 Dose: 3 ml Trazodone HCl (Trazodone Hcl 50 Mg Tablet) 50 mg PO BEDTIME [facility] Last Admin: 11/14/21 23:26 Dose: Not Given Home Medications Medication Instructions Recorded Confirmed Last Taken Type sertraline 100 mg tablet 100 mg PO DAILY 02/21/20 11/14/21 Unknown History amlodipine 5 mg tablet 5 mg PO DAILY 02/22/20 11/14/21 Unknown History buprenorphine 8 mg-naloxone 2 mg 1 film buccal DAILY@1200 02/22/20 11/14/21 Unknown History sublingual film (Suboxone) haloperidol 0.5 mg tablet 0.5 mg PO BID@0900,1400 02/22/20 11/14/21 Unknown History haloperidol 1 mg tablet 2 mg PO BEDTIME 02/22/20 11/14/21 Unknown History nystatin 100,000 unit/gram topical 1 applic topical TID 02/22/20 11/14/21 Unknown History powder ([facility]) prazosin 1 mg capsule 2 mg PO BEDTIME 02/22/20 11/14/21 Unknown History albuterol sulfate 3 ml inhalation QID PRN Wheezing 11/14/21 11/14/21 Unknown History ammonium lactate 12 % topical cream 1 appl topical BID 11/14/21 11/14/21 Unknown History buspirone 10 mg tablet 1 tab PO BID 11/14/21 11/14/21 Unknown History cetirizine 5 mg tablet 2 tab PO DAILY 11/14/21 11/14/21 Unknown History famotidine 20 mg tablet 1 tab PO DAILY 11/14/21 11/14/21 Unknown History fluticasone 100 mcg-salmeterol 50 1 puff inhalation BID 11/14/21 11/14/21 Unknown History mcg/dose blistr powdr for inhalation (Advair Diskus) fluticasone propionate 50 1 spray intranasal BID 11/14/21 11/14/21 Unknown History mcg/actuation nasal spray,suspension gabapentin 400 mg capsule 400 mg PO QID 11/14/21 11/14/21 Unknown History hydralazine 10 mg tablet 2 tab PO TID 11/14/21 11/14/21 Unknown History lamotrigine 100 mg tablet 1 tab PO BID 11/14/21 11/14/21 Unknown History lisinopril 40 mg tablet 1 tab PO DAILY 11/14/21 11/14/21 Unknown History metformin 500 mg tablet 1 tab PO DAILY 11/14/21 11/14/21 Unknown History prazosin 1 mg capsule 1 mg PO DAILY 11/14/21 11/14/21 Unknown History tiotropium bromide 18 mcg capsule 1 cap inhalation DAILY 11/14/21 11/14/21 Unknown History with inhalation device (Spiriva with HandiHaler) trazodone 150 mg tablet 300 mg PO BEDTIME 11/14/21 11/14/21 Unknown History Physical Exam Vital Signs: Vital Signs: Last Vital Signs Temp 97.8 F 11/15/21 11:54 Pulse 78 11/15/21 11:54 Resp 18 11/15/21 11:54 BP 163/70 H 11/15/21 11:54 Pulse Ox 95 11/15/21 11:54 O2 Del Method 11/15/21 11:54 O2 Flow Rate 2 11/14/21 20:34 BMI result Body Mass Index 39.1 Const: General: no acute distress and alert Nutritional Appearance: obese Orientation/consciousness: Other orientation findings ( oriented) HEENT: Head: Yes atraumatic Mouth: no other ( thrush) Throat: No postnasal drainage Eyes: General: appearance normal, both eyes and all related structures Sclerae: sclerae normal EOM: EOMs intact bilaterally Neck: Neck: Yes supple Lymphatic: no lymphadenopathy noted Resp: Effort & Inspection: normal respiratory effort and no use of accessory muscles Auscultation: clear to auscultation bilaterally Cardio: Rate: regular rate Rhythm: regular rhythm Heart sounds: no gallops, no murmurs and no rubs GI: Palpation (GI): Soft to palpation and Other GI palpation findings present ( nontender) Skin: General skin exam: other ( warm) Rashes: no rashes Extrem: General: No clubbing, No cyanosis and No edema Results Laboratory Findings CBC and BMP: 11/15/21 05:41 11/15/21 05:41 Abnormal lab findings: Abnormal Labs 11/14/21 11/14/21 11/14/21 03:53 03:54 03:54 Plt Count 131 L ABG pH at Pt Temp 7.32 L ABG pCO2 at Pt Temp 71 H* ABG pO2 at Pt Temp 45 L* ABG HCO3 37 H Carbon Dioxide 31 H Anion Gap 10 L POC Glucose Random Glucose 184 H Troponin I High Sens 11/14/21 11/14/21 11/14/21 03:54 10:26 10:28 Plt Count ABG pH at Pt Temp ABG pCO2 at Pt Temp 58 H ABG pO2 at Pt Temp 50 L* ABG HCO3 34 H Carbon Dioxide Anion Gap POC Glucose Random Glucose Troponin I High Sens 21.1 H 58.0 H* D 11/14/21 11/14/21 11/14/21 17:08 19:33 23:08 Plt Count ABG pH at Pt Temp ABG pCO2 at Pt Temp ABG pO2 at Pt Temp ABG HCO3 Carbon Dioxide Anion Gap POC Glucose 154 H 173 H 241 H Random Glucose Troponin I High Sens 11/15/21 11/15/21 11/15/21 04:13 05:41 05:41 Plt Count 130 L ABG pH at Pt Temp ABG pCO2 at Pt Temp ABG pO2 at Pt Temp 69 L ABG HCO3 30 H Carbon Dioxide 30 H Anion Gap 10 L POC Glucose Random Glucose 137 H Troponin I High Sens 11/15/21 11:53 Plt Count ABG pH at Pt Temp ABG pCO2 at Pt Temp ABG pO2 at Pt Temp ABG HCO3 Carbon Dioxide Anion Gap POC Glucose 169 H Random Glucose Troponin I High Sens Assessment and Plan (1) Pulmonary nodule: Status: Acute (2) Acute respiratory failure with hypoxia and hypercarbia: Status: Acute (3) COPD (chronic obstructive pulmonary disease): Status: Acute Plan Impression: 51-year-old lady with underlying COPD followed by community rental car porter admitted with acute hypoxic and hypercapnic respiratory failure peripheral requiring BiPAP therapy likely secondary to over-sedation, now at baseline. Patient was noted to have a new 7 mm nodule. She is currently on no bronchodilator therapy. Recommendations: This time patient is at baseline and can resume her outpatient regimen and follow-up. She would need to have the newly noted nodule follow-up in [address] scan. Procedures Date of Service Date of Service: 11/15/21
[2021-11-15] MEDS: Buprenorphine/Naloxone 8/2 mg FILM 0.5 FILM BUCCAL (12:58)
--- NOTE | 2021-11-15 14:25 | P.DS_ITS ---
DS: Providers Provider Date of Service: 11/15/21 Date of admission: 11/14/21 13:54 Primary care physician: Adriana Clayton CNP Consults: 11/14/21 13:50 Consult to Pulmonology Routine Consulting Provider: Yemi Selby Reason for consultation: hypoxic hypercapnic resp failure for eval and est. of care DS: Diagnosis Discharge Diagnosis (1) Pulmonary nodule: Status: Acute (2) Acute respiratory failure with hypoxia and hypercarbia: Status: Acute (3) Toxic metabolic encephalopathy: Status: Acute DS: Summary Hospital Course Hospital Course: Admission note HPI A 51 years old lady with PMH of COPD, smoker, HTN, anxiety who presents to the hospital with altered mentation shortness of breath.? She was noted to low oxygen level by EMS at time of presentation. The patient reports that she has been feeling short of breath for the last 2 days that has been worsening on her baseline were she walks around usually with no restrictions.? She reports active smoking of half a pack a day since she turned 11.? Denies any fever, chills, chest pain, change in bowel habit, nausea or vomiting or urinary symptoms. Upon arrival to the emergency she was somnolent, hypoxic and hyperventilating.? ABG showed evidence of hypercapnic respiratory failure requiring placement on BiPAP with good response as her mentation improved. CXR negative for any acute findings.? will be admitted for further evaluation and treatment. Hospital course The patient was admitted for acute hypercapnic respiratory failure secondary to toxic metabolic encephalopathy as a result of home medications. No infection identified. The patient improved by using BiPAP machine in the emergency as ABG showed evidence of hypercapnic failure with respiratory acidosis that corrected with usage of BiPAP. Her home medications were cut down during the hospital stay as gabapentin, Buspirone, Haldol and trazodone were all cut down with good response as the patient became more alert and interactive in the morning. Evaluated by international student advisor who recommended follow-up with her primary international student advisor as outpatient for 0.7 cm nodule noted on CT scan of the chest. She was advised to quit smoking. Refused to take nicotine patches. Start your home medications with new doses to follow-up with your psychiatrist for further adjustments of medications To follow-up with your international student advisor to repeat CT scan and follow on the chest nodules. Time Spent with Patient Time attestation: Total time spent providing and/or coordinating discharge services: Discharge coordination time: Greater than 30 minutes Quality: Safe Use of Opioids Does Pt have an Active Cancer Diagnosis on the Problem List?: No Quality: Stroke Does the patient have a stroke diagnosis?: No Physical Exam Vital Signs: Vital Signs: Last Vital Signs Temp 97.8 F 11/15/21 11:54 Pulse 78 11/15/21 11:54 Resp 18 11/15/21 11:54 BP 163/70 H 11/15/21 11:54 Pulse Ox 95 11/15/21 11:54 O2 Del Method 11/15/21 11:54 O2 Flow Rate 2 11/14/21 20:34 BMI result Body Mass Index 39.1 Const: Other: Constitutional : Alert, oriented, not in distress Neck : Normal inspection, Supple Cardiovascular : RRR, no JVP, no lower extremity edema Respiratory : fair bilateral air entry, no crackles, wheezes or rhonchi Gastrointestinal: soft, lax, Normal bowel sounds, Non tender Skin : Warm, Dry Neurological : Alert & oriented x3, No focal deficit , CN 2-12 within normal DS: Data Data Completed and Pending Labs on day of discharge: Laboratory Results - last 24 hr 11/14/21 11/14/21 11/14/21 17:08 19:33 23:08 WBC RBC Hgb Hct MCV MCH MCHC RDW Plt Count MPV Absolute Nucleated RBC Nucleated RBC % (auto) O2 Saturation ABG pH at Pt Temp ABG pCO2 at Pt Temp ABG pO2 at Pt Temp ABG HCO3 ABG Base Excess (Actual) Sodium Potassium Chloride Carbon Dioxide Anion Gap BUN Creatinine Estim Creat Clear Calc Estimated GFR POC Glucose 154 H 173 H 241 H Random Glucose Calcium 11/15/21 11/15/21 11/15/21 04:13 05:41 05:41 WBC 7.6 RBC 4.98 Hgb 14.6 Hct 44.5 MCV 89.4 MCH 29.3 MCHC 32.8 RDW 13.5 Plt Count 130 L MPV 10.2 Absolute Nucleated RBC 0.000 Nucleated RBC % (auto) 0.0 O2 Saturation 93.0 ABG pH at Pt Temp 7.43 ABG pCO2 at Pt Temp 45 ABG pO2 at Pt Temp 69 L ABG HCO3 30 H ABG Base Excess (Actual) 5.6 Sodium 141 Potassium 4.3 Chloride 105 Carbon Dioxide 30 H Anion Gap 10 L BUN 11 Creatinine 0.69 Estim Creat Clear Calc 119.8 Estimated GFR > 60 POC Glucose Random Glucose 137 H Calcium 9.7 D 11/15/21 11/15/21 07:24 11:53 WBC RBC Hgb Hct MCV MCH MCHC RDW Plt Count MPV Absolute Nucleated RBC Nucleated RBC % (auto) O2 Saturation ABG pH at Pt Temp ABG pCO2 at Pt Temp ABG pO2 at Pt Temp ABG HCO3 ABG Base Excess (Actual) Sodium Potassium Chloride Carbon Dioxide Anion Gap BUN Creatinine Estim Creat Clear Calc Estimated GFR POC Glucose 110 169 H Random Glucose Calcium Imaging CT scan - chest: Radiologist's impression: ITS Impressions Chest X-Ray 11/14/21 03:30 IMPRESSION: Central vascular prominence without overt edema. Discharge Plan Discharge Patient Disposition: Home, Self-Care Discharge Diagnosis: Acute respiratory failure with hypercapnia Toxic metabolic encephalopathy Referrals: Adriana Cadena, RUBINA [Primary Care Provider] - 1 Week Discharge Medications: Continued sertraline 100 mg Tablet 100 mg PO DAILY haloperidol 0.5 mg Tablet 0.5 mg PO BID@0900,1400 prazosin 1 mg Capsule 2 mg PO BEDTIME amlodipine 5 mg Tablet 5 mg PO DAILY nystatin [Nyamyc] 100,000 unit/gram Powder 1 applic TOPICAL TID buprenorphine-naloxone [Suboxone] 8-2 mg Film 1 film BUCCAL DAILY@1200 metformin 500 mg tablet 1 tab PO DAILY hydralazine 10 mg tablet 2 tab PO TID albuterol sulfate 2.5 mg /3 mL (0.083 %) solution for nebulization 3 ml inhalation QID PRN (Reason: Wheezing) cetirizine 5 mg tablet 2 tab PO DAILY famotidine 20 mg tablet 1 tab PO DAILY fluticasone propion-salmeterol [Advair Diskus] 100-50 mcg/dose blister with device 1 puff inhalation BID lisinopril 40 mg tablet 1 tab PO DAILY fluticasone propionate 50 mcg/actuation spray,suspension 1 spray intranasal BID Spiriva with HandiHaler 18 mcg capsule, w/inhalation device 1 cap inhalation DAILY prazosin 1 mg capsule 1 mg PO DAILY ammonium lactate 12 % Cream 1 appl TOPICAL BID lamotrigine 100 mg tablet 1 tab PO BID Changed gabapentin 400 mg Capsule 200 mg PO QID 30 Days Qty: 60 0RF haloperidol 1 mg Tablet 1 mg PO BEDTIME Qty: 30 0RF trazodone 150 mg tablet 150 mg PO BEDTIME Qty: 30 0RF buspirone 10 mg tablet 10 mg PO DAILY Qty: 30 0RF Discharge Orders: Discharge Order (Routine); Ordered 11/15/21 Ordered By: Mony Pastor Activity on Discharge: As tolerated Stand Alone Forms: Patient Portal Discharge page Care Plan Goals: Read below Health Concerns: Read below Plan of Treatment: Read below Assessment: You were admitted to the hospital for evaluation of altered mentation. Found to be in hypercapnic respiratory failure from CO2 retention. Believed to be secondary to your home medications. Your responded well to treatment with BiPAP machine. We cut down your home dosage of Buspirone, gabapentin, haloperidol and trazodone. You were noticed to have a 0.7 cm nodule in your CT scan of the chest. Will need to be followed by CT scan in 3 months by your PCP or lung doctor. Start your home medications with new doses to follow-up with your psychiatrist for further adjustments of medications To follow-up with your international student advisor to repeat CT scan and follow on the chest nodules.
== END 2021-11-15 15:10 | disposition home or self-care (01) | DRG 140 ==
LOC: HO.ED 11:40 → HO.EDOVER 14:12 → HO.S3 22:02
PROVIDERS: Emergency Medicine; Admitting Provider Student in an Organized Health Care Education/Training Program; Emergency Provider Emergency Medicine Emergency Medical Services; PCP Nurse Practitioner Family; Visit Provider Student in an Organized Health Care Education/Training Program
DX: J43.9 Emphysema, unspecified (principal); J96.01 Acute respiratory failure with hypoxia; G92.8 Other toxic encephalopathy; J96.02 Acute respiratory failure with hypercapnia; T50.995A Adverse effect of other drugs, medicaments and biological substances, initial encounter; R91.1 Solitary pulmonary nodule; F17.210 Nicotine dependence, cigarettes, uncomplicated; Z71.6 Tobacco abuse counseling; Z20.822 Contact with and (suspected) exposure to COVID-19; Z88.5 Allergy status to narcotic agent; Z79.51 Long term (current) use of inhaled steroids; Z79.84 Long term (current) use of oral hypoglycemic drugs; Z79.899 Other long term (current) drug therapy
CPT/HCPCS: 36415; 36600; 71045; 80048; 80053; 82803; 82947; 83880; 84484; 85025; 85027; 87635; 93005; 93306; 94640; 94660; 94762; 96372; 99285; J1650; J2920; J2930

== ENCOUNTER 2022-02-03 04:54 | Inpatient (IN) | payer MEDICAID, SELFPAY ==
--- NOTE | ~2022-02-03 | XR_ITS ---
EXAMINATION: XR CHEST CLINICAL INFORMATION: Cough and shortness of breath. Hypoxia. COMPARISON: 11/14/2021 TECHNIQUE: Frontal view of the chest was obtained. FINDINGS: The lungs are well expanded. There is no focal consolidation, edema, or effusion. Bronchial wall thickening noted. No pneumothorax. The cardiomediastinal silhouette is within normal limits. No acute osseous abnormality. XR/XR chest 1V IMPRESSION: No consolidation. Bronchial wall thickening can be seen with a small airways process such as asthma or atypical/viral infection.
[2022-02-03 05:14] VITALS: BP 127/74; BP 147/83; PULSE 87; PULSE 90; RESP 20; TEMP 36.9; O2SAT 81; O2SAT 93; BMI 35.6
[2022-02-03 05:42] LABS: COVID-19 Test Negative (Negative); IDNOW Serial# 9DB6401D
--- NOTE | 2022-02-03 06:06 | ED_ITS ---
HPI - SOB/Dyspnea General Chief Complaint: Dyspnea Stated Complaint: Diff Breathing Time Seen by Provider: 02/03/22 05:46 Source: patient Mode of arrival: EMS Limitations: no limitations History of Present Illness HPI Narrative: 52-year-old female who presents emergency department for evaluation of cough and shortness of breath. The patient states she has been having difficulty breathing for 2 days. She states she has had a cough which is nonproductive. She denied fever, chills, rhinorrhea or sore throat. She denied chest pain. She states she had nausea with no vomiting. She denied diarrhea she denied f requency, urgency or dysuria. The patient lives in a care home and this morning she was found to have O2 saturations in the 81% range therefore an ambulance was called and the patient was transported to the emergency department. The patient was placed on oxygen via nasal cannula and given albuterol nebulizer in route to the hospital. MD elicited complaint: shortness of breath and cough Pertinent past history: COPD Onset (ago): day(s) (2) Timing: intermittent Severity: moderate Exacerbating factors: nothing Relieving factors: nothing Known history of: COPD Associated symptoms: cough and nausea/vomiting Treatment prior to arrival: oxygen and bronchodilator Related Data Home oxygen amount: none Home Medications Medication Instructions Recorded Confirmed sertraline 100 mg tablet 100 mg PO DAILY 02/21/20 11/14/21 amlodipine 5 mg tablet 5 mg PO DAILY 02/22/20 11/14/21 buprenorphine 8 mg-naloxone 2 mg 1 film buccal DAILY@1200 02/22/20 11/14/21 sublingual film (Suboxone) haloperidol 0.5 mg tablet 0.5 mg PO BID@0900,1400 02/22/20 11/14/21 nystatin 100,000 unit/gram topical 1 applic topical TID 02/22/20 11/14/21 powder ([facility]) prazosin 1 mg capsule 2 mg PO BEDTIME 02/22/20 11/14/21 albuterol sulfate 2.5 mg/3 mL 3 ml inhalation QID PRN Wheezing 11/14/21 11/14/21 (0.083 %) solution for nebulization ammonium lactate 12 % topical cream 1 appl topical BID 11/14/21 11/14/21 cetirizine 5 mg tablet 2 tab PO DAILY 11/14/21 11/14/21 famotidine 20 mg tablet 1 tab PO DAILY 11/14/21 11/14/21 fluticasone 100 mcg-salmeterol 50 1 puff inhalation BID 11/14/21 11/14/21 mcg/dose blistr powdr for inhalation (Advair Diskus) fluticasone propionate 50 1 spray intranasal BID 11/14/21 11/14/21 mcg/actuation nasal spray,suspension hydralazine 10 mg tablet 2 tab PO TID 11/14/21 11/14/21 lamotrigine 100 mg tablet 1 tab PO BID 11/14/21 11/14/21 lisinopril 40 mg tablet 1 tab PO DAILY 11/14/21 11/14/21 metformin 500 mg tablet 1 tab PO DAILY 11/14/21 11/14/21 prazosin 1 mg capsule 1 mg PO DAILY 11/14/21 11/14/21 tiotropium bromide 18 mcg capsule 1 cap inhalation DAILY 11/14/21 11/14/21 with inhalation device (Spiriva with HandiHaler) Previous Rx's Medication Instructions Recorded buspirone 10 mg tablet 10 mg PO DAILY #30 tabs 11/15/21 gabapentin 400 mg capsule 200 mg PO QID 30 days #60 caps 11/15/21 haloperidol 1 mg tablet 1 mg PO BEDTIME #30 tabs 11/15/21 trazodone 150 mg tablet 150 mg PO BEDTIME #30 tabs 11/15/21 Allergies Allergy/AdvReac Type Severity Reaction Status Date / Time codeine [CODEINE] AdvReac Mild RASH Verified 02/21/20 20:31 oxycodone [From OXYCONTIN] AdvReac Mild RASH Verified 02/21/20 20:31 Review of Systems Review of Systems: Yes all other systems are reviewed and are negative [facility] Past Medical History [facility] Narrative: Social history: The patient lives in a care home. She states she smokes at least 10 cigarettes per day times 45 years. She denies alcohol use. She denies drug use. Medical History Asthma Chronic venous stasis dermatitis COPD (chronic obstructive pulmonary disease) Hypertension Pulmonary nodule Surgical History H/O neck surgery Social History Social History Household Members: Other Housing: Other Do you presently have visiting nurse or other home services: Yes Alcohol intake: unknown Patient Tobacco Use Status: Current everyday Tobacco user Second Hand Smoke Exposure: Yes Advance Directives: No service: No Current occupational status: unemployed Physical Exam Vital Signs: Vital Signs: Last Vital Signs Temp 98.5 F 02/03/22 05:14 Pulse 87 02/03/22 05:14 Resp 20 02/03/22 05:14 BP 147/83 H 02/03/22 05:14 Pulse Ox 93 02/03/22 05:14 O2 Del Method 02/03/22 05:14 Oxygen Flow Rate 2.5 02/03/22 05:14 BMI result Body Mass Index 35.6 Const: Other: The patient is somnolent but arousable, when she wakes up she does answer all questions appropriately but falls back asleep when not stimulated. She does not appear to be in respiratory distress, she has 2 L of oxygen via nasal cannula and her O2 saturation is 91% Orientation/consciousness: oriented to person HEENT: Head: Yes normal to inspection, Yes normocephalic and Yes atraumatic Ears: external ears normal General nose exam: Normal external nose present Face and sinus: Yes normal facial exam Mouth: Normal oral and palatal mucosa present Throat: Yes posterior oropharynx normal Eyes: General: appearance normal, both eyes and all related structures Pupils: Equal, round and reactive pupils present Neck: Neck: Yes normal visual inspection, Yes no lymphadenopathy, Yes trachea midline and Yes supple Chest: Chest palpation & inspection: normal inspection of the chest and normal palpation of entire chest wall Resp: Effort & Inspection: normal respiratory effort and able to speak in complete sentences Auscultation: rales (Basis) and wheezes (Diffuse) Cardio: Rate: regular rate Rhythm: regular rhythm Heart sounds: S1 normal heart sound present, S2 normal heart sound present and no murmurs GI: Inspection: Yes normal to inspection Palpation (GI): Soft to palpation, nontender and no guarding Auscultation: normal bowel sounds : General: Yes no CVA tenderness Back/Spine/Pelvis: Back: no CVA tenderness Skin: General skin exam: no rashes or lesions noted Neuro: General: oriented to person Cranial nerves: Yes CN's II-XII intact bilaterally and Yes Equal, round and reactive pupils present Cognition (Neuro): normal cognition Motor exam (neuro): 5/5 motor strength present throughout Extrem: General: Yes normal to inspection Psych: Appearance: grossly normal Speech and movement: Normal speech and movement present Affect: normal affect Attitude: cooperative Course Course Course Narrative: 52-year-old female with history of asthma/COPD who presents to emergency department for evaluation of shortness of breath and nonproductive cough x2 days, she lives in a care home and was noted to have O2 saturations in the 80% range this morning, she was brought to emergency department by ambulance and did receive an albuterol nebulizer in route and was placed on oxygen via nasal can nula. The patient is currently on 2 L of oxygen via nasal cannula and her O2 saturations 91%. Vital signs were otherwise unremarkable. Lung exam did reveal rales at the bases and diffuse wheezing. I did order laboratory evaluation includes CBC, CMP, lipase, lactate, blood cultures x2. One-view chest x-ray will be obtained. Patient was ordered to get normal saline x1 L, albuterol nebulizer 5 mg and Solu-Medrol 125 mg IV. 0707: At the end of my shift, the patient's laboratory evaluation and workup is pending. The patient's care was turned over to my colleague, Dr. Lorie Shore. MDM - SOB/Dyspnea Lab Data Labs: Lab Results 02/03/22 Range/Units 05:22 COVID-19 ([facility]) Negative (Negative) COVID-19 Clin Com See Note Discharge Plan Discharge Clinical Impression: Hypoxia, Acute exacerbation of chronic obstructive pulmonary disease Patient Disposition: Still a Patient Prescriptions: No Action sertraline 100 mg Tablet 100 mg PO DAILY haloperidol 0.5 mg Tablet 0.5 mg PO BID@0900,1400 prazosin 1 mg Capsule 2 mg PO BEDTIME amlodipine 5 mg Tablet 5 mg PO DAILY nystatin [Nyamyc] 100,000 unit/gram Powder 1 applic TOPICAL TID buprenorphine-naloxone [Suboxone] 8-2 mg Film 1 film BUCCAL DAILY@1200 metformin 500 mg tablet 1 tab PO DAILY hydralazine 10 mg tablet 2 tab PO TID albuterol sulfate 2.5 mg /3 mL (0.083 %) solution for nebulization 3 ml inhalation QID PRN (Reason: Wheezing) cetirizine 5 mg tablet 2 tab PO DAILY famotidine 20 mg tablet 1 tab PO DAILY fluticasone propion-salmeterol [Advair Diskus] 100-50 mcg/dose blister with device 1 puff inhalation BID lisinopril 40 mg tablet 1 tab PO DAILY fluticasone propionate 50 mcg/actuation spray,suspension 1 spray intranasal BID Spiriva with HandiHaler 18 mcg capsule, w/inhalation device 1 cap inhalation DAILY prazosin 1 mg capsule 1 mg PO DAILY ammonium lactate 12 % Cream 1 appl TOPICAL BID lamotrigine 100 mg tablet 1 tab PO BID gabapentin 400 mg Capsule 200 mg PO QID 30 Days Qty: 60 0RF haloperidol 1 mg Tablet 1 mg PO BEDTIME Qty: 30 0RF trazodone 150 mg tablet 150 mg PO BEDTIME Qty: 30 0RF buspirone 10 mg tablet 10 mg PO DAILY Qty: 30 0RF
[2022-02-03 07:19] VITALS: BP 171/88; PULSE 81; RESP 20; TEMP 36.8; O2SAT 95
[2022-02-03 08:10] LABS: MANUAL DIFF FLAG NO
[2022-02-03 08:11] LABS: Basophils Percent Auto 0.3 % (0-2); Eosinophils Absolute Auto 0.2 X10*3/uL (0.0-0.4); Eosinophils Percent Auto 2.2 % (0-4); Hemoglobin 16.5 g/dl (12.0-16.0); Imm Gran Abs Auto 0.05 X10*3/uL (0.00-0.03); Imm Gran Pct Auto 0.6 % (0.0-0.4); Lymphocytes Absolute Auto 2.1 X10*3/uL (1.2-4.9); Lymphocytes Percent Auto 23.5 % (20-40); Mean Corpuscular Hemoglobin 28.8 pg (27.0-33.0); Mean Corpuscular Volume 87.3 fL (80.0-98.0); Mean Platelet Volume 9.1 fL (9.4-12.3); Monocytes Absolute Auto 0.7 X10*3/uL (0.1-1.2); Monocytes Percent Auto 8.2 % (2-11); Neutrophils Absolute Auto 5.7 x10*3/uL (2.0-8.3); Neutrophils Percent Auto 65.2 % (45-73); Platelet Count 153 X10*3/uL (160-400); Red Blood Count 5.73 X10*6/uL (4.20-5.50); Red Cell Distribution Width 13.9 % (11.0-16.0); White Blood Count 8.7 X10*3/uL (4.8-10.8)
[2022-02-03 08:16] LABS: Appearance Urine Clear; Color Urine Yellow; Glucose Urine UA Negative (Negative); Leukocyte Esterase Urine Trace (Negative); Nitrite Urine Negative (Negative); PH 6.5 (5.0-9.0); UMIC TRIGGER UACC YES; Urine Blood Negative (Negative); Urine Ketones Negative (Negative); Urine Protein 300 (3+) mg/dL (Neg-Trace)
[2022-02-03 08:17] LABS: INTERNATIONAL NORM RATIO 1.1 (0.9-1.1); Prothrombin Time 12.5 SEC (10.0-13.1)
[2022-02-03 08:19] LABS: Partial Thromboplastin Time 34.7 SEC (26.0-36.4)
[2022-02-03 08:21] LABS: Bacteria Urine 1+ (None Seen); Hyaline Casts Urine 0-2 /LPF (0-2); RBC Urine 0-2 /HPF (0-2); UACC Culture Trigger YES
[2022-02-03 08:28] LABS: Lactic Acid 0.7 mmol/L (0.5-2.0)
[2022-02-03 08:33] LABS: Alanine Aminotransferase 25 U/L (0-31); Albumin Level 4.2 g/dL (3.5-5.0); Alkaline Phosphatase 106 U/L (39-117); Anion Gap 15 (12-20); Aspartate Amino Transferase 28 U/L (5-31); Bilirubin Total 0.7 mg/dL (0.0-1.0); Blood Urea Nitrogen 8 mg/dL (9-16); Calcium 9.5 mg/dL (8.4-10.2); Carbon Dioxide 29 mmol/L (22-29); Chloride 101 mmol/L (96-108); Creatinine Clr Calc Pharmacy 119.5; Estimated Glomerular Filt Rate > 60; Glucose Random 121 mg/dL (60-115); Lipase 25 U/L (8-78); Potassium 4.1 mmol/L (3.3-5.1); Sodium 141 mmol/L (135-145); Total Protein 7.7 g/dL (6.5-8.0)
[2022-02-03] MEDS: methylPREDNISolone Sod Succ 125 MG/2 ML VIAL IVPUSH (08:49)
[2022-02-03] MEDS: 0.9 % Sodium Chloride 1,000 ML 999 ML IV (08:49)
[2022-02-03] MEDS: cefTRIAXone sodium 1 GM in 0.9 % Sodium Chloride 50 ML IV (08:50)
[2022-02-03] MEDS: Azithromycin 500 MG TABLET PO (08:50)
--- NOTE | 2022-02-03 09:01 | P.HPHOSP_ITS ---
History of Present Illness Date of Service: 02/03/22 Chief Complaint: hypoxia This is a 52 year old female with a PMH of COPD not on home oxygen, active tobacco smoking, HTN, DM who presented to [facility] after she was noted to have respiratory symptoms of several days duration and hypoxia on the morning of presentation. The patient, who apparently is a resident of a penitentiary, has been having progressive shortness of breath (initially with exertion, but now with minimal movement) with associated cough productive of white sputum for the last 3-4 days. On the morning of admission, SpO2 readings at home were as low as 81%. EMS was called, she was placed on 2L NC and given albuterol INH in route to the ED. The patient denies any fevers or chills. She denies any sick contacts. She does admit to continual tobacco use. She denies any chest pain, denies any orthopnea, any PND or edema. In the ED, the patient was treated with solu-medrol, updrafts and IV antibiotics for COPD/Bronchitis. Despite this the patient continued to be hypoxic with sats dropping consistently below 88%. She was placed on supplemental O2 and now will be admitted for further care. Review of Systems Review of Systems: netgative except HPI [facility] Medical History (Updated 02/03/22 @ 09:08 by Jerrell Torres MD) Asthma Chronic venous stasis dermatitis COPD (chronic obstructive pulmonary disease) Diabetes mellitus Hypertension Pulmonary nodule Pertinent family history: Denies any known FH Surgical History H/O neck surgery Social History (Updated 02/03/22 @ 09:08 by Jerrell Torres MD) Household Members: Other Housing: Other Do you presently have visiting nurse or other home services: Yes Alcohol intake: unknown Patient Tobacco Use Status: Current everyday Tobacco user Second Hand Smoke Exposure: Yes Use of substances other than those prescribed or required for medical reasons: No Advance Directives: No service: No Current occupational status: unemployed Meds Allergies Allergy/AdvReac Type Severity Reaction Status Date / Time codeine [CODEINE] AdvReac Mild RASH Verified 02/21/20 20:31 oxycodone [From OXYCONTIN] AdvReac Mild RASH Verified 02/21/20 20:31 Active Medications: Current Medications Acetaminophen (Acetaminophen 325 Mg Tablet) 650 mg PO Q6H PRN PRN Reason: Pain, Mild (Pain Scale 1-3) Albuterol/Ipratropium (Albuterol/Iprat 2.5/0.5mg 3 Ml Ampul.Neb) 3 ml INHALE RQ6H WHILE AWAKE ELAN Enoxaparin Sodium (Enoxaparin Sodium 40 Mg/0.4 Ml Syringe) 40 mg SUBCUT Q24H ELAN Methylprednisolone Sodium Succinate (Methylprednisolone Sod Succ 40 Mg/Ml Vial) 40 mg IVPUSH Q8H ELAN Ondansetron HCl (Ondansetron Hcl 4 Mg/2 Ml Vial) 4 mg IVPUSH Q8H PRN PRN Reason: Nausea and Vomiting Pharmacy Consult (Consult Rx Perform Med Rec) 1 each MISCELLANE ONCE PRN PRN Reason: Consult order Sodium Chloride (0.9 % Sodium Chloride Flush 3 Ml Syringe) 3 ml IVFLUSH QSHIFT [facility] Home Medications Medication Instructions Recorded Confirmed Last Taken Type sertraline 100 mg tablet 150 mg PO DAILY 02/21/20 11/14/21 Unknown History amlodipine 5 mg tablet 5 mg PO DAILY 02/22/20 11/14/21 Unknown History buprenorphine 8 mg-naloxone 2 mg 1 film buccal DAILY@1200 02/22/20 11/14/21 Unknown History sublingual film (Suboxone) haloperidol 0.5 mg tablet 0.5 mg PO BID@0900,1400 02/22/20 11/14/21 Unknown History nystatin 100,000 unit/gram topical 1 applic topical TID 02/22/20 11/14/21 Unknown History powder ([facility]) prazosin 1 mg capsule 2 mg PO BEDTIME 02/22/20 11/14/21 Unknown History albuterol sulfate 2.5 mg/3 mL 3 ml inhalation QID PRN Wheezing 11/14/21 11/14/21 Unknown History (0.083 %) solution for nebulization ammonium lactate 12 % topical cream 1 appl topical BID 11/14/21 11/14/21 Unknown History cetirizine 5 mg tablet 2 tab PO DAILY 11/14/21 11/14/21 Unknown History famotidine 20 mg tablet 1 tab PO DAILY 11/14/21 11/14/21 Unknown History fluticasone 100 mcg-salmeterol 50 1 puff inhalation BID 11/14/21 11/14/21 Unknown History mcg/dose blistr powdr for inhalation (Advair Diskus) fluticasone propionate 50 1 spray intranasal BID 11/14/21 11/14/21 Unknown History mcg/actuation nasal spray,suspension hydralazine 10 mg tablet 2 tab PO TID 11/14/21 11/14/21 Unknown History lamotrigine 100 mg tablet 1 tab PO BID 11/14/21 11/14/21 Unknown History lisinopril 40 mg tablet 1 tab PO DAILY 11/14/21 11/14/21 Unknown History metformin 500 mg tablet 1 tab PO DAILY 11/14/21 11/14/21 Unknown History prazosin 1 mg capsule 1 mg PO DAILY 11/14/21 11/14/21 Unknown History tiotropium bromide 18 mcg capsule 1 cap inhalation DAILY 11/14/21 11/14/21 Unknown History with inhalation device (Spiriva with HandiHaler) Physical Exam Vital Signs and Narrative: Vital Signs: Last Vital Signs Temp 98.3 F 02/03/22 07:19 Pulse 81 02/03/22 07:19 Resp 20 02/03/22 07:19 BP 171/88 H 02/03/22 07:19 Pulse Ox 95 02/03/22 07:19 O2 Del Method 02/03/22 07:19 O2 Flow Rate 3 02/03/22 07:19 Oxygen Flow Rate 2.5 02/03/22 05:14 BMI result Body Mass Index 35.6 Const: Other: Constitutional - Awake and Alert, No apparent distress when on supplemental O2; +respiratory distress acessory muscle with ambulation and once O2 drops into the 80s Eyes - PERRLA, EOMI Cardiovascular - S1S2, RRR, No edema Respiratory - Dim breath sounds with scattered wheezing Gastrointestinal - NT / ND; +BS; No rebound or guarding - No CVA tenderness Extremities - no calf tenderness bilaterally, no swelling Musculoskeletal - Normal inspection, normal ROM Skin - Warm/Dry Neurological - Alert & oriented x3, No focal deficit Psychological - Appropriate affect Results Labs CBC and Chem 7: 02/03/22 08:03 02/03/22 08:03 Labs: Laboratory Results - last 24 hr 02/03/22 02/03/22 02/03/22 05:22 08:03 08:03 MCV 87.3 MCH 28.8 MCHC 33.0 RDW 13.9 Plt Count 153 L MPV 9.1 L Immature Gran % (Auto) 0.6 H Neut % (Auto) 65.2 Lymph % (Auto) 23.5 Stokes % (Auto) 8.2 Eos % (Auto) 2.2 Baso % (Auto) 0.3 Lymph # (Auto) 2.1 Stokes # (Auto) 0.7 Eos # (Auto) 0.2 Baso # (Auto) 0.0 Abs Immat Gran (auto) 0.05 H Absolute Neuts (auto) 5.7 Absolute Nucleated RBC 0.000 Nucleated RBC % (auto) 0.0 PT 12.5 INR 1.1 APTT 34.7 Anion Gap Estim Creat Clear Calc Estimated GFR Random Glucose Lactic Acid Calcium Total Bilirubin AST ALT Alkaline Phosphatase Total Protein Albumin Lipase Urine Color Urine Appearance Urine pH Ur Specific Amelia Urine Protein Urine Glucose (UA) Urine Ketones Urine Blood Urine Nitrite Ur Leukocyte Esterase Urine RBC Urine WBC Ur Squamous Epith Cells Urine Bacteria Hyaline Casts COVID-19 ([facility]) Negative COVID-19 Clin Com See Note 02/03/22 02/03/22 02/03/22 08:03 08:03 08:03 MCV MCH MCHC RDW Plt Count MPV Immature Gran % (Auto) Neut % (Auto) Lymph % (Auto) Stokes % (Auto) Eos % (Auto) Baso % (Auto) Lymph # (Auto) Stokes # (Auto) Eos # (Auto) Baso # (Auto) Abs Immat Gran (auto) Absolute Neuts (auto) Absolute Nucleated RBC Nucleated RBC % (auto) PT INR APTT Anion Gap 15 Estim Creat Clear Calc 119.5 Estimated GFR > 60 Random Glucose 121 H Lactic Acid 0.7 Calcium 9.5 Total Bilirubin 0.7 AST 28 ALT 25 Alkaline Phosphatase 106 D Total Protein 7.7 Albumin 4.2 Lipase 25 Urine Color Yellow Urine Appearance Clear Urine pH 6.5 Ur Specific Amelia 1.020 Urine Protein 300 (3+) H Urine Glucose (UA) Negative Urine Ketones Negative Urine Blood Negative Urine Nitrite Negative Ur Leukocyte Esterase Trace H Urine RBC 0-2 Urine WBC 6-10 H Ur Squamous Epith Cells 11-20 Urine Bacteria 1+ Hyaline Casts 0-2 COVID-19 ([facility]) COVID-19 Clin Com Imaging Radiologist's Impressions: Impressions Chest X-Ray 02/03/22 06:15 IMPRESSION: No consolidation. Bronchial wall thickening can be seen with a small airways process such as asthma or atypical/viral infection. Assessment and Plan (1) Acute exacerbation of chronic obstructive pulmonary disease: Status: Acute Plan This is a 52 yo F with COPD who is actively smoking tobacco, DM, HTN who presents with progessive shortness of breath of several days duration and subsequent hypoxia likely secondary to acute exacerbation of COPD + bacterial bronchitis. She remains hypoxic despite treatment in the ED and hence will require inpatient hospitalization for further treatment. 1. Acute hypoxic respiratory failure due to COPD exacerbation + bronchitis Likely worsened by on going tobacco use Continue O2 via NC with goal of 92; do not over oxygenate; continuous pulse oximetry Solu-Medrol q8 hours; Updrafts q4 hours scheduled + PRN Given rocephin/zithromax in the ED -- will commence doxycycline Tobacco cessation as been encouraged -- the patient reports she has no plans to quit; NRT offered but declined by the patient May need home O2 testing before discharge if remains hypoxic 2. DM type 2 Hold orals and use sliding scale Check A1C Diabetic diet 3. Class II obesity (BMI 35.7) consider outpatient weight loss program 4. Mood continue baseline meds once med rec completed. 5. HTN resume home meds once med rec completed Full Code DVT pptx, Lovenox Due to the severity of her COPD exacerbation which has led to acute respiratory failure with hyopxia, she will need inpatient hospitalization for frequent monitoring of her O2 status, continual adjustments to supplemental O2, treatment with IV systemic steroids and nebulized bronchodilators 4-6 times a day. This cannot be completed in a less acute setting. Her admission is likely to span 2 midnights. Quality Stroke Does the patient have a stroke diagnosis?: No VTE Prior VTE?: No VTE Risk Level:: Medical - moderate - high VTE Device Contraindication: Treatment Not Indicated VTE Drug Contraindication: N/A - Med Ordered
[2022-02-03 09:30] LABS: Estimated Average Glucose 114 mg/dL; Hemoglobin A1c % 5.6 %
[2022-02-03] MEDS: Enoxaparin Sodium 40 MG/0.4 ML SYRINGE SUBCUT (09:52)
[2022-02-03 12:10] VITALS: BP 190/94; PULSE 94; RESP 20; TEMP 36.7; O2SAT 96
--- NOTE | 2022-02-03 12:25 | PHA.MEDREC ---
Pharmacy Consult ? Medication Reconciliation Pharmacy has completed the medication reconciliation. Used Med List from [facility]. Thanks Mk
--- NOTE | 2022-02-03 12:54 | PC.NURSE ---
Patient requesting to leave AMA. MD Torres informed and bedside now. MD Torres also speaking with patient's prison. Patient states I'm just going to walk out of here.
--- NOTE | 2022-02-03 13:01 | P.EN_ITS ---
Event Note Date of Service: 02/03/22 Event Note: Informed by patients RN that patient wanted to to be discharged. Pt seen and examined. She reports that her breating has improved and she is ready for discharge. Informed her that her O2 drops when she ambulates and hence, she would require further treatment in the hospital. Further her blood pressure is significantly elevated. She declines and requests to for AMA paperwork stating that these BP and oxygen issues are normal for her. She is explained the risks of leaving AMA including respiratory failurem also CVA/NM due to BP and possibly . She requested that I speak her [facility] director, which I did via phone. I've informed him that she is requsting AMA. The patient is AAOx3; she is able to tell me in layman's terms the risks of leaving AMA. She has agreed to take her baseline BP meds prior to discharge but still plans on leaving AMA once she is able to arrange for a ride. In order to minimize harm, I will send a prescription for prednisone and doxycycline. SHe has been informed that should she change her mind, to return to the ED for t reatment.
[2022-02-03] MEDS: Sertraline HCL 50 MG TABLET 150 MG PO (13:12)
[2022-02-03] MEDS: Gabapentin 100 MG CAPSULE 200 MG PO (13:12)
[2022-02-03] MEDS: busPIRone HCl 10 MG TABLET PO (13:12)
[2022-02-03] MEDS: Famotidine 20 MG TABLET PO (13:12)
[2022-02-03] MEDS: Buprenorphine/Naloxone 4/1 mg FILM 1 FILM SUBLINGUAL (13:12)
[2022-02-03] MEDS: HaloperidoL 0.5 MG TABLET PO (13:12)
[2022-02-03] MEDS: lisinopriL 40 MG TABLET PO (13:12)
[2022-02-03] MEDS: amLODIPine Besylate 5 MG TABLET PO (13:12)
[2022-02-03] MEDS: lamoTRIgine 100 MG TABLET PO (13:12)
--- NOTE | 2022-02-03 14:25 | PC.NURSE ---
pt dc from ER as dr Brian DAUGHERTY, d/c orders in. pts ride from half-way here to take pt home.
--- NOTE | 2022-07-11 08:44 | P.DS_ITS ---
DS: Providers Provider Date of Service: 07/11/22 Date of admission: 02/03/22 08:56 Date of discharge: 02/03/22 Primary care physician: Unknown Physician DS: Diagnosis Discharge Diagnosis (1) Acute exacerbation of chronic obstructive pulmonary disease: Status: Acute (2) Acute respiratory failure with hypoxia: Status: Acute (3) Diabetes mellitus: Status: Acute (4) Class 2 obesity: Status: Acute DS: Summary Hospital Course Hospital Course: From the admission H&P: This is a 52 year old female with a PMH of COPD not on home oxygen, active tobacco smoking, HTN, DM who presented to [facility] ED after she was noted to have respiratory symptoms of several days duration and hypoxia on the morning of presentation. The patient, who apparently is a resident of a assisted, has been having progressive shortness of breath (initially with exertion, but now with minimal movement) with associated cough productive of white sputum for the last 3-4 days. On the morning of admission, SpO2 readings at home were as low as 81%. EMS was called, she was placed on 2L NC and given albuterol INH in route to the ED. The patient denies any fevers or chills. She denies any sick contacts. She does admit to continual tobacco use. She denies any chest pain, denies any orthopnea, any PND or edema. In the ED, the patient was treated with solu-medrol, updrafts and IV antibiotics for COPD/Bronchitis. Despite this the patient continued to be hypoxic with sats dropping consistently below 88%. She was placed on supplemental O2 and now will be admitted for further care. Hospital Course: Pt was treated with supplemental o2, iv steroids, scheduled + prn bronchodilators and empiric IV antibiotics. He continued to improve but was not ready for discharge from the hospital. However, he decided to sign out AMA. Time Spent with Patient Time attestation: Total time managing care of this patient today ____ minutes. Discharge coordination time: Less than 30 minutes Quality: Safe Use of Opioids Does Pt have an Active Cancer Diagnosis on the Problem List?: No Quality: Stroke Does the patient have a stroke diagnosis?: No Physical Exam Vital Signs: Vital Signs: Last Vital Signs Temp 98.1 F 02/03/22 12:10 Pulse 94 02/03/22 12:10 Resp 20 02/03/22 12:10 BP 190/94 H 02/03/22 12:10 Pulse Ox 96 02/03/22 12:10 O2 Del Method 02/03/22 12:10 O2 Flow Rate 2 02/03/22 12:10 Oxygen Flow Rate 2.5 02/03/22 05:14 BMI result Body Mass Index 35.6 Discharge Plan Discharge Patient Disposition: Left Against Medical Advice Discharge Diagnosis: COPD, Hyopxia, Left AMA Referrals: Physician,Unknown J [Primary Care Provider] - 1 Week Discharge Medications: New prednisone 20 mg tablet 40 mg PO DAILY Qty: 10 0RF doxycycline hyclate 100 mg capsule 100 mg PO BID Qty: 14 0RF No Action sertraline 100 mg Tablet 150 mg PO DAILY haloperidol 0.5 mg Tablet 0.5 mg PO DAILY prazosin 1 mg Capsule 2 mg PO BEDTIME amlodipine 5 mg Tablet 5 mg PO DAILY nystatin [Nyamyc] 100,000 unit/gram Powder 1 applic TOPICAL TID miconazole nitrate [Frankie Antifungal] 2 % cream 1 appl topical BID PRN (Reason: Dry Skin) ibuprofen 800 mg tablet 1 tab PO Q12H PRN (Reason: Pain) acetaminophen [8 Hour Pain Reliever] 650 mg tablet extended release 1,300 mg PO Q8H PRN (Reason: Pain) docusate sodium 100 mg Tablet 100 mg PO BID PRN (Reason: Constipation) ondansetron 4 mg tablet,disintegrating 4 mg PO Q8H PRN (Reason: Nausea) roflumilast 500 mcg Tablet 500 mcg PO DAILY buprenorphine-naloxone [Suboxone] 4-1 mg film 1 strip sublingual DAILY latanoprost (PF) 0.005 % Drops 1 drp OPHTHALMIC (EYE) QPM trazodone 150 mg tablet 300 mg PO BEDTIME metformin 500 mg tablet 1 tab PO DAILY hydralazine 10 mg tablet 2 tab PO TID albuterol sulfate 2.5 mg /3 mL (0.083 %) solution for nebulization 3 ml inhalation QID PRN (Reason: Wheezing) cetirizine 5 mg tablet 2 tab PO DAILY famotidine 20 mg tablet 1 tab PO DAILY fluticasone propion-salmeterol [Advair Diskus] 100-50 mcg/dose blister with device 1 puff inhalation BID lisinopril 40 mg tablet 1 tab PO DAILY fluticasone propionate 50 mcg/actuation spray,suspension 1 spray intranasal BID Spiriva with HandiHaler 18 mcg capsule, w/inhalation device 1 cap inhalation DAILY prazosin 1 mg capsule 1 mg PO DAILY ammonium lactate 12 % Cream 1 appl TOPICAL BID lamotrigine 100 mg tablet 1 tab PO BID gabapentin 400 mg Capsule 200 mg PO QID 30 Days Qty: 60 0RF haloperidol 1 mg Tablet 1 mg PO BEDTIME Qty: 30 0RF buspirone 10 mg tablet 10 mg PO DAILY Qty: 30 0RF Discharge Orders: Discharge Order (Routine); Ordered 02/03/22 Ordered By: Jerrell Torres Stand Alone Forms: Against Medical Advice Care Plan Goals: Pt leaving AMA Health Concerns: Pt leaving AMA Plan of Treatment: Pt leaving AMA Assessment: Pt leaving AMA Discharge Date/Time: 02/03/22 14:29
== END 2022-02-03 14:29 | disposition left against medical advice (07) | DRG 140 ==
LOC: HO.ED 08:37 → HO.EDOVER 09:05
PROVIDERS: Emergency Medicine Emergency Medical Services; Admitting Provider Family Medicine; Emergency Provider Emergency Medicine; Visit Provider Family Medicine
DX: J44.1 Chronic obstructive pulmonary disease with (acute) exacerbation (principal); E11.9 Type 2 diabetes mellitus without complications; E66.9 Obesity, unspecified; F17.210 Nicotine dependence, cigarettes, uncomplicated; I10 Essential (primary) hypertension; Z20.822 Contact with and (suspected) exposure to COVID-19; Z71.6 Tobacco abuse counseling; Z68.35 Body mass index [BMI] 35.0-35.9, adult; Z88.5 Allergy status to narcotic agent; Z56.0 Unemployment, unspecified; Z79.51 Long term (current) use of inhaled steroids; Z79.52 Long term (current) use of systemic steroids; Z79.84 Long term (current) use of oral hypoglycemic drugs; Z79.899 Other long term (current) drug therapy
CPT/HCPCS: 36415; 71045; 80053; 81001; 83036; 83605; 83690; 85025; 85610; 85730; 87040; 87086; 87635; 96361; 96374; 96375; 99218; 99285; J0696; J1650; J2930

== ENCOUNTER 2023-02-25 20:41 | Inpatient (IN) | payer OTHER, SELFPAY ==
--- NOTE | ~2023-02-25 | XR_ITS ---
EXAMINATION: XR CHEST CLINICAL INFORMATION: Chest pain COMPARISON: 02/03/2022 TECHNIQUE: Frontal view of the chest was obtained. FINDINGS: Diffuse bronchial wall thickening. No focal consolidation. No pleural effusion. No pneumothorax. Cardiomediastinal silhouette and pulmonary vascularity are within normal limits. No acute osseous abnormalities. XR/XR chest 1V IMPRESSION: No focal consolidation. Bronchial thickening as can be seen with asthma and atypical/viral infections.
[2023-02-25 20:49] VITALS: BP 138/87; BP 153/85; PULSE 97; PULSE 99; RESP 13; TEMP 37.2; O2SAT 78; O2SAT 86; BMI 35.9
--- NOTE | 2023-02-25 20:57 | ED_ITS ---
HPI - SOB/Dyspnea General Chief Complaint: Dyspnea Stated Complaint: SOB,O2 @ 78% on arrival,now 96w/ NRB. copd Time Seen by Provider: 02/25/23 20:50 Source: patient Mode of arrival: ambulatory Limitations: no limitations History of Present Illness HPI Narrative: 53-year-old female with a history of COPD, diabetes mellitus, hypoxia and pneumonia who presents emergency department for evaluation of shortness of breath x2 days which got worse prior to arrival. Patient does have history of COPD and she states she has a chronic cough. The cough is gotten worse over the past 2 days. She is also complaining of pain in the center of her chest which is worse with coughing and breathing. She denied fever, chills, rhinorrhea or sore throat. She states she is short of breath her baseline but is worse over the past 2 days. She has had associated nausea with no vomiting or diarrhea. She complains of myalgias. Patient was brought to the emergency department by ambulance, she was found to be hypoxic with an O2 saturation 85% on room air . She was given a DuoNeb by paramedics prior to arrival. Patient does not wear oxygen at home and she states that her O2 saturation is normally around 94% on room air. Related Data Home Medications Medication Instructions Recorded Confirmed sertraline 100 mg tablet 150 mg PO DAILY 02/21/20 02/03/22 amlodipine 5 mg tablet 5 mg PO DAILY 02/22/20 02/03/22 haloperidol 0.5 mg tablet 0.5 mg PO DAILY 02/22/20 02/03/22 nystatin 100,000 unit/gram topical 1 applic topical TID 02/22/20 02/03/22 powder ([facility]) prazosin 1 mg capsule 2 mg PO BEDTIME 02/22/20 02/03/22 albuterol sulfate 2.5 mg/3 mL 3 ml inhalation QID PRN Wheezing 11/14/21 02/03/22 (0.083 %) solution for nebulization ammonium lactate 12 % topical cream 1 appl topical BID 11/14/21 02/03/22 cetirizine 5 mg tablet 2 tab PO DAILY 11/14/21 02/03/22 famotidine 20 mg tablet 1 tab PO DAILY 11/14/21 02/03/22 fluticasone 100 mcg-salmeterol 50 1 puff inhalation BID 11/14/21 02/03/22 mcg/dose blistr powdr for inhalation (Advair Diskus) fluticasone propionate 50 1 spray intranasal BID 11/14/21 02/03/22 mcg/actuation nasal spray,suspension hydralazine 10 mg tablet 2 tab PO TID 11/14/21 02/03/22 lamotrigine 100 mg tablet 1 tab PO BID 11/14/21 02/03/22 lisinopril 40 mg tablet 1 tab PO DAILY 11/14/21 02/03/22 metformin 500 mg tablet 1 tab PO DAILY 11/14/21 02/03/22 prazosin 1 mg capsule 1 mg PO DAILY 11/14/21 02/03/22 tiotropium bromide 18 mcg capsule 1 cap inhalation DAILY 11/14/21 02/03/22 with inhalation device (Spiriva with HandiHaler) acetaminophen 650 mg 1,300 mg PO Q8H PRN Pain 02/03/22 02/03/22 tablet,extended release (8 Hour Pain Reliever) buprenorphine 4 mg-naloxone 1 mg 1 strip sublingual DAILY 02/03/22 02/03/22 sublingual film (Suboxone) docusate sodium 100 mg tablet 100 mg PO BID PRN Constipation 02/03/22 02/03/22 ibuprofen 800 mg tablet 1 tab PO Q12H PRN Pain 02/03/22 02/03/22 latanoprost (PF) 0.005 % eye drops 1 drp ophthalmic (eye) QPM 02/03/22 02/03/22 miconazole nitrate 2 % topical 1 appl topical BID PRN Dry Skin 02/03/22 02/03/22 cream (Frankie Antifungal) ondansetron 4 mg disintegrating 4 mg PO Q8H PRN Nausea 02/03/22 02/03/22 tablet roflumilast 500 mcg tablet 500 mcg PO DAILY 02/03/22 02/03/22 trazodone 150 mg tablet 300 mg PO BEDTIME 02/03/22 02/03/22 Previous Rx's Medication Instructions Recorded buspirone 10 mg tablet 10 mg PO DAILY #30 tabs 11/15/21 gabapentin 400 mg capsule 200 mg (1/2 x 400 mg) PO QID 30 11/15/21 days #60 caps haloperidol 1 mg tablet 1 mg PO BEDTIME #30 tabs 11/15/21 doxycycline hyclate 100 mg capsule 100 mg PO BID #14 caps 02/03/22 prednisone 20 mg tablet 40 mg (2 x 20 mg) PO DAILY #10 tabs 02/03/22 Allergies Allergy/AdvReac Type Severity Reaction Status Date / Time codeine [CODEINE] AdvReac Mild RASH Verified 02/21/20 20:31 oxycodone [From OXYCONTIN] AdvReac Mild RASH Verified 02/21/20 20:31 Review of Systems 2 Review of Systems: Yes all other systems are reviewed and are negative [facility] Past Medical History [facility] Narrative: Social history: She lives in a chcf. She smokes 1 pack of cigarettes per day times 42 years. She denies alcohol use. 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 Medical History Diabetes mellitus Pulmonary nodule Chronic venous stasis dermatitis Hypertension COPD (chronic obstructive pulmonary disease) Asthma Surgical History H/O neck surgery Social History Social History Household Members: Other Housing: Other Do you presently have visiting nurse or other home services: Yes Alcohol intake: unknown Patient Tobacco Use Status: Current everyday Tobacco user Smoked in Last 30 Days: Yes Second Hand Smoke Exposure: Yes Use of substances other than those prescribed or required for medical reasons: No Substance Use Type: Former Substance User Advance Directives: No Advance Directives Information Provided: Yes Patient : No service: No Current occupational status: unemployed Physical Exam 2 Vital Signs: Vital Signs: Last Vital Signs Temp 98.8 F 02/25/23 22:31 Pulse 99 02/25/23 22:40 Resp 20 02/25/23 22:40 BP 148/72 H 02/25/23 22:31 Pulse Ox 88 L 02/25/23 22:31 O2 Del Method Nasal Cannula 02/25/23 22:31 O2 Flow Rate 6 02/25/23 22:31 Oxygen Flow Rate 6 02/25/23 20:49 BMI result Body Mass Index 35.9 Vital signs revealed elevated blood pressure of 153/85. Patient's O2 saturation was 86% on room air and on 6 L via nasal cannula O2 saturation is 90% range- patient cannot tolerate OxyMask since she has claustrophobia. Exam General: Awake, alert, questions appropriately, appears to be in mild respiratory distress Head: Normocephalic, atraumatic EENT: PERRL, Lids normal, sclera normal, conjunctiva normal, nose normal , ears normal, throat without erythema or exudates Neck: Supple, no adenopathy, trachea midline and nontender Lung: breath sounds symmetric, diffuse wheezing right greater than left, rhonchi on the right, no rales Chest: symmetric movement, nontender Heart: regular rate and rhythm, normal S1, S2 no murmurs or rubs Abdomen: soft, non-tender, nondistended, normal bowel sounds Back: no vertebral tenderness, no CVAT Extremities: no deformities, moves all extremities symmetrically, trace pitting edema bilaterally symmetric Skin: no rashes, no lesion, normal color and warmth Neuro: Awake, alert, oriented, normal speech, cranial nerves intact, moves all extremities symmetrically Psych: Pleasant, cooperative Medications Administered Discontinued Medications Generic Name Dose Route Start Last Admin Trade Name Freq PRN Reason Stop Dose Admin Albuterol Sulfate 2.5 mg 02/25/23 22:04 02/25/23 22:40 Albuterol Sulfate (0.083%) 2.5 Mg/3 Ml Vial.Neb INHALE 02/25/23 22:05 2.5 mg ONCE ONE Administration Albuterol Sulfate 5 mg/ 0 mg 02/25/23 21:03 02/25/23 21:04 Albuterol/Ipratropium 3 ml INHALE 02/25/23 21:04 7.5 each ONCE ONE Administration Hydromorphone HCl 1 mg 02/25/23 20:57 02/25/23 21:08 Hydromorphone Hcl 1 Mg/Ml Syringe IVPUSH 02/25/23 20:58 1 mg ONCE STA Administration Protocol Hydromorphone HCl 1 mg 02/25/23 21:50 02/25/23 22:01 Hydromorphone Hcl 1 Mg/Ml Syringe IVPUSH 02/25/23 21:51 1 mg ONCE STA Administration Protocol Ceftriaxone Sodium 1 gm/ 50 mls @ 100 mls/hr 02/25/23 22:01 02/25/23 23:06 Sodium Chloride IV 02/25/23 22:30 Infused ONCE ONE Infusion Azithromycin 500 mg/ Sodium 250 mls @ 125 mls/hr 02/25/23 22:01 02/25/23 23:07 Chloride IV 02/26/23 00:00 125 mls/hr ONCE ONE Administration Methylprednisolone Sodium Succinate 125 mg 02/25/23 20:57 02/25/23 21:08 Methylprednisolone Sod Succ 125 Mg/2 Ml Vial IVPUSH 02/25/23 20:58 125 mg ONCE ONE Administration Medical Decision Making Medical Decision Making [facility] Narrative: 53-year-old female with a history of COPD, diabetes mellitus, hypoxia and pneumonia who presents emergency department for evaluation of shortness of breath x2 days which got worse prior to arrival. Patient was given a DuoNeb EN route. The patient was found to be hypoxic with an O2 saturation of 86% on room air and on 6 L O2 saturation 92. Patient's lung exam revealed diffuse wheezing with increased rhonchi on the right compared to left, no rales. She does have trace pitting edema. Following evaluation was ordered: CBC, CMP, lactic acid, blood cultures x2, PT, chest x-ray one view, EKG. Patient was ordered to get the bronchodilator protocol, Solu-Medrol 125 mg IV, and Dilaudid 1 mg IV for her chest pain 22:02 The patient wheezing did improved after receiving the DuoNeb provide with 5 mg of albuterol nebulize. Patient still has some slight wheezing therefore she will be treated with another albuterol nebulizer 2.5 mg On my review of the patient's chest x-ray the patient has a left lower lobe infiltrate which is new compared to her previous chest x-ray Patient was ordered to get ceftriaxone 1 g IV and Zithromax 500 mg IV 23:19 Radiology chest x-ray impression is consistent with asthmatic changes however I believe the patient does have a left lower lobe infiltrate I did add a D-dimer if this is elevated I will get a CT pulmonary angiogram protocol And patient is feeling better after the above treatment, I will discuss admission with the hospitalist for COPD as exacerbation or pneumonia. Patient does not meet sepsis criteria and her hypoxia is most likely caused by COPD exacerbation. 00:03 Patient's D-dimer was not elevated at 192. Given this negative D-dimer I do not think the patient needs further workup for pulmonary embolism. I did discuss admission with the covering hospitalist, Dr. Mireles. Differential Diagnosis Differential Diagnoses: The differential diagnosis associated with the presentation includes Differential COPD exacerbation, pneumonia, CHF, myocardial infarction, left myocardial ischemia, COVID-19, influenza, anemia, electrolyte abnormalities Admission/Observation Consideration of admission/observation: Escalation of care including admission/observation considered Consult Healthcare Provider Management of the patient was discussed with: Hospitalist Lab Data MDM Lab Attestation statement: I reviewed the patient's lab results. My independent interpretation patient's laboratory evaluation as follows: CBC was normal except for low platelet count of [id number] is chronic CMP was normal. High sensitive troponin I was detectable but not elevated at 4.7. Venous blood gas did reveal a normal pH of 7.36 elevated pCO2 59-this is chronic and consistent with her COPD. 02/25/23 21:55 02/25/23 21:55 Labs: Lab Results 02/25/23 02/25/23 02/25/23 Range/Units 21:54 21:55 22:01 WBC 9.7 (4.8-10.8) X10*3/uL RBC 5.38 (4.20-5.50) X10*6/uL Hgb 15.9 (12.0-16.0) g/dl Hct 49.7 H (37.0-47.0) % MCV 92.4 (80.0-98.0) fL MCH 29.6 (27.0-33.0) pg MCHC 32.0 (31.0-35.0) g/dl RDW 14.5 (11.0-16.0) % Plt Count 133 L (160-400) X10*3/uL MPV 9.9 (9.4-12.3) fL Immature Gran % (Auto) 0.5 H (0.0-0.4) % Neut % (Auto) 63.7 (45-73) % Lymph % (Auto) 26.8 (20-40) % [place] % (Auto) 6.5 (2-11) % Eos % (Auto) 1.9 (0-4) % Baso % (Auto) 0.6 (0-2) % Lymph # (Auto) 2.6 (1.2-4.9) X10*3/uL [place] # (Auto) 0.6 (0.1-1.2) X10*3/uL Eos # (Auto) 0.2 (0.0-0.4) X10*3/uL Baso # (Auto) 0.1 (0.0-0.2) X10*3/uL Abs Immat Gran (auto) 0.05 H (0.00-0.03) X10*3/uL Absolute Neuts (auto) 6.2 (2.0-8.3) x10*3/uL Absolute Nucleated RBC 0.020 H (0.0-0.012) X10*3/uL Nucleated RBC % (auto) 0.2 (0.0-0.2) /100WBC Smear Tech's Comments VERIFIED APTT 28.1 (26.0-36.4) SEC D-Dimer High Sensitivty 192 NG/ML VBG pH 7.36 (7.32-7.43) VBG pCO2 59 mmHg VBG pO2 49 mmHg VBG HCO3 34 H (22-26) mmol/L VBG O2 Saturation 81.0 % VBG Base Excess 6.7 mmol/L Sodium 142 (135-145) mmol/L Potassium 3.7 (3.3-5.1) mmol/L Chloride 101 (96-108) mmol/L Carbon Dioxide 29 (22-29) mmol/L Anion Gap 16 (12-20) BUN 6 L (9-16) mg/dL Creatinine 0.60 (0.5-1.4) mg/dL Estim Creat Clear Calc 137.4 Estimated GFR > 60 Random Glucose 116 H (60-115) mg/dL Lactic Acid 0.9 (0.5-2.0) mmol/L Calcium 9.2 (8.4-10.2) mg/dL Total Bilirubin 0.5 (0.0-1.0) mg/dL AST 27 (5-31) U/L ALT 24 (0-31) U/L Alkaline Phosphatase 83 (39-117) U/L Troponin I High Sens 4.7 (<3.5-17.0) ng/L B-Natriuretic Peptide 42 (<100) pg/mL Total Protein 7.5 (6.5-8.0) g/dL Albumin 4.2 (3.5-5.0) g/dL Influenza Type A (PCR) NEGATIVE (Negative) Influenza Type B (PCR) NEGATIVE (Negative) RSV RNA Qual (PCR) NEGATIVE (Negative) SARS-CoV-2 RNA (RT-PCR) NEGATIVE (Negative) Independent Interpretation I performed an independent interpretation of an: EKG and Plain X-Ray Interpretation: 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 Compared to EKG dated 11/14/2021 poor R-wave progression is old. My interpretation patient's of the patient's one-view chest x-ray done today is as follows: Left lower lobe infiltrate/retrocardiac infiltrate which is new compared to her previous chest x-ray Radiology Impression Discussion of test interpretation with radiology: I have reviewed the radiologist's reading. Radiologist Impression: XR chest 1V IMPRESSION: No focal consolidation. Bronchial thickening as can be seen with asthma and atypical/viral infections. Dictated By: Forrest Clemons MD Critical Care Time Critical Care Time Critical Care Time: Yes Total Critical Care Time: 45 Attestation: Critical Care: The patient was critically ill with a high probability of imminent or life threatening deterioration. I spent greater than 30 minutes of discontinuous time evaluating the patient,delivering critical care at the bedside, discussing and evaluating pertinent data with consultants. Critical care time does not include time spent performing separately billable procedures or teaching. Total time spent performing critical care was 45 minutes. Discharge Plan Discharge Clinical Impression: Acute exacerbation of chronic obstructive pulmonary disease, Hypoxia Pneumonia Qualifiers: Pneumonia type: due to unspecified organism Laterality: left Lung location: l ower lobe of lung Qualified Code(s): J18.9 - Pneumonia, unspecified organism Patient Disposition: Admitted As Inpatient
--- NOTE | 2023-02-25 20:58 | ECG_ITS ---
Test Reason : SOB Blood Pressure : / mmHG Vent. Rate : 094 BPM Atrial Rate : 094 BPM P-R Int : 146 ms QRS Dur : 082 ms QT Int : 372 ms P-R-T Axes : 067 -34 059 degrees QTc Int : 465 ms Normal sinus rhythm Left axis deviation Cannot rule out Anterior infarct (cited on or before 14-NOV-2021) Abnormal ECG When compared with ECG of 14-NOV-2021 12:05, No significant change was found Referred By: Giancarlo Parada Electronically Signed By:ANEL MARTINEZ MD
[2023-02-25] MEDS: Albuterol Sulfate 5 MG, Albuterol/Iprat 2.5/0.5MG 3 ML 3 ML INHALE (21:04)
[2023-02-25 21:05] VITALS: PULSE 94; RESP 24; O2SAT 91
[2023-02-25] MEDS: methylPREDNISolone Sod Succ 125 MG/2 ML VIAL IVPUSH (21:08)
[2023-02-25] MEDS: HYDROmorphone HCl 1 MG/ML SYRINGE IVPUSH ×2 (21:08→22:01)
[2023-02-25 22:07] LABS: Venous Blood Gas Refer to POC result
[2023-02-25 22:07] LABS: VBG Base Excess 6.7 mmol/L; VBG HCO3 34 mmol/L (22-26); VBG pCO2 59 mmHg; VBG pH 7.36 (7.32-7.43); VBG pO2 49 mmHg
[2023-02-25 22:14] LABS: Basophils Absolute Auto 0.1 X10*3/uL (0.0-0.2); Basophils Percent Auto 0.6 % (0-2); Eosinophils Absolute Auto 0.2 X10*3/uL (0.0-0.4); Eosinophils Percent Auto 1.9 % (0-4); Hematocrit 49.7 % (37.0-47.0); Hemoglobin 15.9 g/dl (12.0-16.0); Imm Gran Abs Auto 0.05 X10*3/uL (0.00-0.03); Imm Gran Pct Auto 0.5 % (0.0-0.4); Lymphocytes Absolute Auto 2.6 X10*3/uL (1.2-4.9); Lymphocytes Percent Auto 26.8 % (20-40); MANUAL DIFF FLAG SCAN; Mean Corpuscular Hemoglobin 29.6 pg (27.0-33.0); Mean Corpuscular Volume 92.4 fL (80.0-98.0); Mean Platelet Volume 9.9 fL (9.4-12.3); Monocytes Absolute Auto 0.6 X10*3/uL (0.1-1.2); Monocytes Percent Auto 6.5 % (2-11); NRBC Pct Auto 0.2 /100WBC (0.0-0.2); Neutrophils Absolute Auto 6.2 x10*3/uL (2.0-8.3); Neutrophils Percent Auto 63.7 % (45-73); PLT CLUMP 1; Red Blood Count 5.38 X10*6/uL (4.20-5.50); Red Cell Distribution Width 14.5 % (11.0-16.0); SCAN SMEAR FLAG 1
[2023-02-25 22:17] LABS: Lactic Acid 0.9 mmol/L (0.5-2.0)
[2023-02-25 22:20] LABS: Partial Thromboplastin Time 28.1 SEC (26.0-36.4)
[2023-02-25 22:21] LABS: Alanine Aminotransferase 24 U/L (0-31); Albumin Level 4.2 g/dL (3.5-5.0); Alkaline Phosphatase 83 U/L (39-117); Anion Gap 16 (12-20); Aspartate Amino Transferase 27 U/L (5-31); Bilirubin Total 0.5 mg/dL (0.0-1.0); Blood Urea Nitrogen 6 mg/dL (9-16); Calcium 9.2 mg/dL (8.4-10.2); Carbon Dioxide 29 mmol/L (22-29); Chloride 101 mmol/L (96-108); Creatinine Clr Calc Pharmacy 137.4; Estimated Glomerular Filt Rate > 60; Glucose Random 116 mg/dL (60-115); Potassium 3.7 mmol/L (3.3-5.1); Sodium 142 mmol/L (135-145); Total Protein 7.5 g/dL (6.5-8.0)
[2023-02-25 22:25] LABS: B Type Natriuretic Peptide 42 pg/mL (<100)
[2023-02-25 22:28] LABS: Troponin-I High Sensitivity 4.7 ng/L (<3.5-17.0)
[2023-02-25] MEDS: cefTRIAXone sodium 1 GM in 0.9 % Sodium Chloride 50 ML IV (22:28)
[2023-02-25 22:31] VITALS: BP 148/72; PULSE 99; RESP 20; TEMP 37.1; O2SAT 88
[2023-02-25 22:31] LABS: Platelet Count 133 X10*3/uL (160-400); White Blood Count 9.7 X10*3/uL (4.8-10.8)
[2023-02-25 22:32] LABS: SLIDE REVIEW VERIFIED
[2023-02-25 22:40] VITALS: PULSE 99; RESP 20; O2SAT 88
[2023-02-25] MEDS: Albuterol Sulfate (0.083%) 2.5 MG/3 ML VIAL.NEB INHALE (22:40)
[2023-02-25 22:42] LABS: Influenza A PCR NEGATIVE (Negative); Influenza B PCR NEGATIVE (Negative); Resp Syncy Virus RNA Qual PCR NEGATIVE (Negative); SARS COV2 PCR INHOUSE NEGATIVE (Negative)
[2023-02-25] MEDS: Azithromycin 500 MG in 0.9 % Sodium Chloride 250 ML 125 MG IV (23:07)
[2023-02-25 23:27] LABS: D Dimer High Sensitivity 192 NG/ML
--- NOTE | 2023-02-25 23:48 | PM.IMHP ---
History of Present Illness Date of Service: 02/25/23 Chief Complaint: Dyspnea This is a 53-year-old female with pertinent history of COPD not on home oxygen, essential hypertension, mood disorder, jxq-hipkyaa-ciepaipau diabetes mellitus who presents to the emergency department for evaluation of dyspnea. Patient states her symptoms started 2 days prior to presentation. Dyspnea is worse with ambulation. Also has associated wheezing. Admits cough with intermittent clear sputum production. Denies fever or chills. No chest discomfort, palpitations, abdominal pain, changes in urinary or bowel habits. In the emergency department, patient was found to be hypoxemic and placed on supplemental oxygen. Review of Systems Constitutional: Constitutional: Reports fatigue, Reports lethargy and Reports malaise Cardiovascular: Cardiovascular: Reports dyspnea on exertion Respiratory: Respiratory: Reports cough, Reports dyspnea on exertion and Reports wheezing Gastrointestinal: Gastrointestinal: Reports no additional gastrointestinal complaints Genitourinary: Genitourinary: Reports no additional female genitourinary complaints Endocrine: Endocrine: Reports fatigue Allergic/Immunologic: Allergic/Immunologic: Reports wheezing COUNTS INCLUDE 234 BEDS AT THE [facility] Medical History Diabetes mellitus Pulmonary nodule Chronic venous stasis dermatitis Hypertension COPD (chronic obstructive pulmonary disease) Asthma Pertinent family history: No family history of early CAD Surgical History H/O neck surgery Social History Household Members: Other Housing: Other Do you presently have visiting nurse or other home services: Yes Alcohol intake: unknown Patient Tobacco Use Status: Current everyday Tobacco user Smoked in Last 30 Days: Yes Second Hand Smoke Exposure: Yes Use of substances other than those prescribed or required for medical reasons: No Substance Use Type: Former Substance User Advance Directives: No Advance Directives Information Provided: Yes Patient : No service: No Current occupational status: unemployed Meds Allergies Allergy/AdvReac Type Severity Reaction Status Date / Time codeine [CODEINE] AdvReac Mild RASH Verified 02/21/20 20:31 oxycodone [From OXYCONTIN] AdvReac Mild RASH Verified 02/21/20 20:31 Active Medications: Current Medications Azithromycin 500 mg/ Sodium (Chloride) 250 mls @ 125 mls/hr IV ONCE ONE Stop: 02/26/23 00:00 Last Admin: 02/25/23 23:07 Dose: 125 mls/hr Home Medications Medication Instructions Recorded Confirmed Last Taken Type sertraline 100 mg tablet 150 mg PO DAILY 02/21/20 02/03/22 Unknown History amlodipine 5 mg tablet 5 mg PO DAILY 02/22/20 02/03/22 Unknown History haloperidol 0.5 mg tablet 0.5 mg PO DAILY 02/22/20 02/03/22 Unknown History nystatin 100,000 unit/gram topical 1 applic topical TID 02/22/20 02/03/22 Unknown History powder ([facility]) prazosin 1 mg capsule 2 mg PO BEDTIME 02/22/20 02/03/22 Unknown History albuterol sulfate 2.5 mg/3 mL 3 ml inhalation QID PRN Wheezing 11/14/21 02/03/22 Unknown History (0.083 %) solution for nebulization ammonium lactate 12 % topical cream 1 appl topical BID 11/14/21 02/03/22 Unknown History cetirizine 5 mg tablet 2 tab PO DAILY 11/14/21 02/03/22 Unknown History famotidine 20 mg tablet 1 tab PO DAILY 11/14/21 02/03/22 Unknown History fluticasone 100 mcg-salmeterol 50 1 puff inhalation BID 11/14/21 02/03/22 Unknown History mcg/dose blistr powdr for inhalation (Advair Diskus) fluticasone propionate 50 1 spray intranasal BID 11/14/21 02/03/22 Unknown History mcg/actuation nasal spray,suspension hydralazine 10 mg tablet 2 tab PO TID 11/14/21 02/03/22 Unknown History lamotrigine 100 mg tablet 1 tab PO BID 11/14/21 02/03/22 Unknown History lisinopril 40 mg tablet 1 tab PO DAILY 11/14/21 02/03/22 Unknown History metformin 500 mg tablet 1 tab PO DAILY 11/14/21 02/03/22 Unknown History prazosin 1 mg capsule 1 mg PO DAILY 11/14/21 02/03/22 Unknown History tiotropium bromide 18 mcg capsule 1 cap inhalation DAILY 11/14/21 02/03/22 Unknown History with inhalation device (Spiriva with HandiHaler) acetaminophen 650 mg 1,300 mg PO Q8H PRN Pain 02/03/22 02/03/22 Unknown History tablet,extended release (8 Hour Pain Reliever) buprenorphine 4 mg-naloxone 1 mg 1 strip sublingual DAILY 02/03/22 02/03/22 Unknown History sublingual film (Suboxone) docusate sodium 100 mg tablet 100 mg PO BID PRN Constipation 02/03/22 02/03/22 Unknown History ibuprofen 800 mg tablet 1 tab PO Q12H PRN Pain 02/03/22 02/03/22 Unknown History latanoprost (PF) 0.005 % eye drops 1 drp ophthalmic (eye) QPM 02/03/22 02/03/22 Unknown History miconazole nitrate 2 % topical 1 appl topical BID PRN Dry Skin 02/03/22 02/03/22 Unknown History cream (Frankie Antifungal) ondansetron 4 mg disintegrating 4 mg PO Q8H PRN Nausea 02/03/22 02/03/22 Unknown History tablet roflumilast 500 mcg tablet 500 mcg PO DAILY 02/03/22 02/03/22 Unknown History trazodone 150 mg tablet 300 mg PO BEDTIME 02/03/22 02/03/22 Unknown History Physical Exam Vital Signs and Narrative: Vital Signs: Last Vital Signs Temp 98.8 F 02/25/23 22:31 Pulse 99 02/25/23 22:40 Resp 20 02/25/23 22:40 BP 148/72 H 02/25/23 22:31 Pulse Ox 88 L 02/25/23 22:31 O2 Del Method Nasal Cannula 02/25/23 22:31 O2 Flow Rate 6 02/25/23 22:31 Oxygen Flow Rate 6 02/25/23 20:49 BMI result Body Mass Index 35.9 Middle-aged female lying in bed in distress on supplemental oxygen Neck supple, no JVD Regular rate and rhythm, S1-S2 heard Bilateral wheezing without crackles Abdomen soft nontender, no guarding, no rigidity Patient is awake, alert and oriented to self, place, time and person ; no focal motor deficit Psych: Normal mood Trace pitting edema Results Labs 02/25/23 21:55 02/25/23 21:55 Labs: Laboratory Results - last 24 hr 02/25/23 02/25/23 02/25/23 21:54 21:55 22:01 MCV 92.4 MCH 29.6 MCHC 32.0 RDW 14.5 Plt Count 133 L MPV 9.9 Immature Gran % (Auto) 0.5 H Neut % (Auto) 63.7 Lymph % (Auto) 26.8 [place] % (Auto) 6.5 Eos % (Auto) 1.9 Baso % (Auto) 0.6 Lymph # (Auto) 2.6 [place] # (Auto) 0.6 Eos # (Auto) 0.2 Baso # (Auto) 0.1 Abs Immat Gran (auto) 0.05 H Absolute Neuts (auto) 6.2 Absolute Nucleated RBC 0.020 H Nucleated RBC % (auto) 0.2 Smear Tech's Comments VERIFIED APTT 28.1 D-Dimer High Sensitivty 192 VBG pH 7.36 VBG pCO2 59 VBG pO2 49 VBG HCO3 34 H VBG O2 Saturation 81.0 VBG Base Excess 6.7 Anion Gap 16 Estim Creat Clear Calc 137.4 Estimated GFR > 60 Random Glucose 116 H Lactic Acid 0.9 Calcium 9.2 Total Bilirubin 0.5 AST 27 ALT 24 Alkaline Phosphatase 83 B-Natriuretic Peptide 42 Total Protein 7.5 Albumin 4.2 Influenza Type A (PCR) NEGATIVE Influenza Type B (PCR) NEGATIVE RSV RNA Qual (PCR) NEGATIVE SARS-CoV-2 RNA (RT-PCR) NEGATIVE Imaging Radiologist's Impressions: Impressions Chest X-Ray 02/25/23 21:25 IMPRESSION: No focal consolidation. Bronchial thickening as can be seen with asthma and atypical/viral infections. Assessment and Plan (1) Acute exacerbation of chronic obstructive pulmonary disease: Status: Acute (2) Acute respiratory failure with hypoxia: Status: Acute Plan This is a 53-year-old female with pertinent history of COPD not on home oxygen, essential hypertension, mood disorder, ikf-wvydosv-nuojzcbqn diabetes mellitus who presents to the emergency department for evaluation of dyspnea. #. Acute hypoxemic respiratory failure secondary to acute exacerbation of COPD: Will admit patient with supplemental oxygen. Initiating systemic steroids. Scheduled and p.r.n. DuoNebs. Continue home inhaler. Initiating azithromycin for pleiotropy #. Rky-irzwjzp-mvjuwplcb diabetes mellitus. Initiating Accu-Cheks with sliding scale insulin #. Essential hypertension: Continue home antihypertensives #. Mood disorder: Continue home mood stabilizers #. Obesity: Counseled regarding diet and exercise Med rec pending DVT prophylaxis: Lovenox Full code Admit as inpatient and will require two night minimum hospital stay for supplemental oxygen Time Spent With Patient Time: Total time managing care of this patient today ____ minutes. Quality Stroke Does the patient have a stroke diagnosis?: No VTE Prior VTE?: No VTE Risk Level:: Medical - moderate - high VTE Device Contraindication: Treatment Not Indicated VTE Drug Contraindication: N/A - Med Ordered
[2023-02-26] VITALS (7 sets, daily range): BP systolic 135–181; BP diastolic 64–110; PULSE 82–95; RESP 16–20; TEMP 36–37.3; O2SAT 91–95
--- NOTE | 2023-02-26 00:13 | MHC.EDTECH ---
This tech assumed care of patient at 2300, hourly rounds and vitals completed, patient refused to change into hospital attire,and refused for this tech to take blankets out from underneath her that were from EMS, patient was a minimal assist to commode,attempted to take blankets out at this time, Patient yelled at this tech and said NO. Tried to boost patient up in bed she said NO I sleep like this all this time. Belonging list completed. JORDON Corbin made aware
[2023-02-26] MEDS: Enoxaparin Sodium 40 MG/0.4 ML SYRINGE SUBCUT ×2 (00:29→23:37)
--- NOTE | 2023-02-26 01:56 | PC.NURSE ---
Med req completed
--- NOTE | 2023-02-26 02:38 | PC.NURSE ---
Pt reporting back and neck pain, 12/21. [place]umb[place] text sent to Dr. Mireles.
--- NOTE | 2023-02-26 03:05 | MHC.EDTECH ---
Hourly rounds completed, patient is resting comfortably at this time and call kinney within reach
[2023-02-26] MEDS: HYDROmorphone HCl 1 MG/ML SYRINGE IVPUSH (03:44)
--- NOTE | 2023-02-26 03:49 | PC.NURSE ---
Pt medicated as ordered. O2 sat 95% on 6L NC. O2 decreased to 4L, pt maintaining o2 sat at 92%.
--- NOTE | 2023-02-26 04:32 | MHC.EDTECH ---
Hourly rounds and vitals completed, assisted patient up to commode with minimal assist,patient urinated a moderate amount.Patient is resting comfortably in bed at this time and call kinney within reach.
[2023-02-26 05:03] LABS: MANUAL DIFF FLAG NO
[2023-02-26 05:14] LABS: Basophils Percent Auto 0.4 % (0-2); Eosinophils Percent Auto 0.3 % (0-4); Hematocrit 48.9 % (37.0-47.0); Hemoglobin 15.9 g/dl (12.0-16.0); Imm Gran Abs Auto 0.08 X10*3/uL (0.00-0.03); Imm Gran Pct Auto 1.2 % (0.0-0.4); Lymphocytes Absolute Auto 0.9 X10*3/uL (1.2-4.9); Lymphocytes Percent Auto 13.4 % (20-40); Mean Corpuscular HGB Conc 32.5 g/dl (31.0-35.0); Mean Corpuscular Hemoglobin 29.7 pg (27.0-33.0); Mean Corpuscular Volume 91.4 fL (80.0-98.0); Monocytes Absolute Auto 0.1 X10*3/uL (0.1-1.2); Monocytes Percent Auto 1.6 % (2-11); Neutrophils Absolute Auto 5.6 x10*3/uL (2.0-8.3); Neutrophils Percent Auto 83.1 % (45-73); Platelet Count 129 X10*3/uL (160-400); Red Blood Count 5.35 X10*6/uL (4.20-5.50); Red Cell Distribution Width 14.4 % (11.0-16.0); White Blood Count 6.7 X10*3/uL (4.8-10.8)
--- NOTE | 2023-02-26 05:25 | PC.NURSE ---
pt assisted to bed side commode, call kinney in reach, notified JORDON Corbin. Will continue to monitor.
[2023-02-26 05:27] LABS: Anion Gap 19 (12-20); Blood Urea Nitrogen 7 mg/dL (9-16); Calcium 9.3 mg/dL (8.4-10.2); Carbon Dioxide 23 mmol/L (22-29); Chloride 100 mmol/L (96-108); Creatinine Clr Calc Pharmacy 135.2; Estimated Glomerular Filt Rate > 60; Glucose Random 183 mg/dL (60-115); Potassium 4.5 mmol/L (3.3-5.1); Sodium 137 mmol/L (135-145)
[2023-02-26] MEDS: Acetaminophen 325 MG TABLET 650 MG PO (05:34)
--- NOTE | 2023-02-26 05:35 | PC.NURSE ---
Pt assisted to the commode. pt is able to stand and pivot. Reports pain, 10/10 and is requesting more Dilaudid. Dilaudid schedule explained to the pt. Pt medicated with acetaminophen. VSS. NSR on the monitor with HR 93. O2 sat 93% on 4L NC. No apparent distress noted. Pending bed assingment .
[2023-02-26 07:20] LABS: Glucose, Whole Blood 155 mg/dL (60-115)
[2023-02-26] MEDS: methylPREDNISolone Sod Succ 40 MG/ML VIAL IVPUSH ×2 (07:54→21:03)
[2023-02-26] MEDS: 0.9 % Sodium Chloride Flush 3 ML SYRINGE IVFLUSH ×2 (07:55→14:49)
--- NOTE | 2023-02-26 08:04 | PC.NURSE ---
alert, nad, c/o pain in back and neck. always have it , wanted dilaudid but none ordered, aware of apap order, breakfast at bedside, refused insulin I don't take insulin
--- NOTE | 2023-02-26 09:00 | PHA.MEDREC ---
Addendum entered by Janae Marte RPh 02/26/23 13:34: CALLED PHARMACY TO VERIFY SUBOXONE Original Note: Pharmacy Consult ? Medication Reconciliation Pharmacy has completed the medication reconciliation.
--- NOTE | 2023-02-26 11:19 | MHC.CM.PN ---
Addendum entered by Chasity Saenz 02/26/23 14:06: CM INFORMED PT THREATENING TO LEAVE AMA CM CALLED PTS [employer], ZANA [phone]. ZANA CONFIRMS PT DOES SPEAK FOR HERSELF HE SAYS SHE HAS A HCP BUT IT IS NOT INVOKED HE REPORTS SHE DOES NOT HAVE O2 AT HOME THOUGH AND THEY WOULD NOT ACCEPT HER BACK IF SHE DID LEAVE AMA HE AGREED TO INFORM ALL [facility] STAFF THAT THEY SHOULD NOT CLERK TELEVISION PRODUCTION PT IF SHE CALLS HE ALSO CALLED THE PTS DAUGHTER AND INFORMED HER PT WAS NOT MEDICALLY CLEARED TO LEAVE THE HOSPITAL ZANA WAS INFORMED THE PT MAY BE READY TO DC TOMORROW MORNING AND CM WOULD FOLLOW UP THEN Original Note: CM MET WITH PT WHO WAS ABLE TO PROVIDE THE FOLLOWING INFORMATION: SHE LIVES IN A [facility] WHERE SHE IS INDEPENDENT WITH SELF CARE SHE HAS A WALKER HOWEVER DOES NOT USE IT AT THIS TIME SHE CONFIRMS HER PCP IS PELON DOBBS AND SAYS HER DAUGHTER IS HER HCP, COPY REQUESTED SHE REPORTS THE [facility] MANAGERS ARE [facility] AND PROVIDES A PHONE NUMBER OF [phone] CM CALLED THE [facility] AND WAS INFORMED BOTH ZANA AND ROSLYN ARE OFF TODAY CM WAS INFORMED THIS IS A [facility] THAT HAS 24/7 STAFF AND A NURSE THAT OVERSEES BUT IS NOT ON SIGHT CM ALSO INFORMED PTS MEDS ARE BUBBLE PACKED AND COME FROM [facility]-THEY WILL NEED NOTICE TO DELIVER ANY NEW MEDS CM INFORMED EITHER ZANA OR ROSLYN WOULD NEED TO APPROVE/HELP COORDINATE PTS RETURN AND THEY WILL BE BACK IN TOMORROW AT 0900.
--- NOTE | 2023-02-26 13:00 | P.PNIM_ITS ---
Subjective Subjective Date of Service: 02/26/23 Interval History: f/u on copd exacerbation, she's feeling better but sill requiring 4 litr and sating 94 Physical Exam 2 Vital Signs: Vital Signs: Last Vital Signs Temp 99.1 F 02/26/23 04:05 Pulse 92 02/26/23 08:38 Resp 20 02/26/23 08:38 BP 163/85 H 02/26/23 08:38 Pulse Ox 94 02/26/23 08:38 O2 Del Method Nasal Cannula 02/26/23 08:38 O2 Flow Rate 4 02/26/23 08:38 Oxygen Flow Rate 6 02/25/23 20:49 BMI result Body Mass Index 35.9 Const: Other: General: AO X 3, no acute distress Resp: lungs deem but no resp distress CVS: S1,S2,RRR GI: +BS, NT, no distention Skin: No rash Neuro: motor grossly intact Psych: appropriate affect Objective Data Active Medications Acetaminophen (Acetaminophen 325 Mg Tablet) 650 mg PO Q6H PRN PRN Reason: Pain, Mild (Pain Scale 1-3) Last Admin: 02/26/23 05:34 Dose: 650 mg Documented By: YOLANDA Albuterol Sulfate (Albuterol Sulfate (0.083%) 2.5 Mg/3 Ml Vial.Neb) mg INHALE QID PRN PRN Reason: Wheezing Albuterol/Ipratropium (Albuterol/Iprat 2.5/0.5mg 3 Ml Ampul.Neb) 3 ml INHALE RQ4H WHILE AWAKE [facility] Last Admin: 02/26/23 11:31 Dose: Not Given Documented By: NEREYDA Non-Admin Reason: Patient Refused Albuterol/Ipratropium (Albuterol/Iprat 2.5/0.5mg 3 Ml Ampul.Neb) 3 ml INHALE Q4H PRN PRN Reason: Wheezing Amlodipine Besylate (Amlodipine Besylate 10 Mg Tablet) 10 mg PO DAILY [facility]; Protocol Atorvastatin Calcium (Atorvastatin Calcium 20 Mg Tablet) 20 mg PO DAILY [facility] Buprenorphine/Naloxone (Buprenorphine/Naloxone 4/1 Mg Film) film SUBLINGUAL DAILY [facility] Buspirone HCl (Buspirone Hcl 10 Mg Tablet) 10 mg PO TID [facility] Dextrose (Dextrose 50 % 25 Gm/50 Ml Syringe) 25 gm IVPUSH Q15M PRN; Protocol PRN Reason: per Hypoglycemia Standing Ord. Docusate Sodium (Docusate Sodium 100 Mg Capsule) 100 mg PO BID PRN PRN Reason: Constipation Enoxaparin Sodium (Enoxaparin Sodium 40 Mg/0.4 Ml Syringe) 40 mg SUBCUT Q24H [facility] Last Admin: 02/26/23 00:29 Dose: 40 mg Documented By: LADONNA Famotidine (Famotidine 20 Mg Tablet) 20 mg PO BID [facility] Fluticasone Propionate (Fluticasone Propionate Nasal 16 Gm [place]) 1 spray NOSTRIL-B BID [facility] Gabapentin (Gabapentin 100 Mg Capsule) 200 mg PO QID [facility] Glucose (Glucose Gel 15 Gm Gel..Gram.) 15 gm PO Q15M PRN; Protocol PRN Reason: per Hypoglycemia Standing Ord. Haloperidol (Haloperidol 1 Mg Tablet) 2 mg PO BEDTIME [facility] Hydralazine HCl (Hydralazine Hcl 25 Mg Tablet) 25 mg PO TID [facility]; Protocol Azithromycin 500 mg/ Sodium (Chloride) 250 mls @ 125 mls/hr IV Q24H [facility] Insulin Human Lispro (Insulin Lispro 100 Unit/Ml 3 Ml Vial) 0 unit SUBCUT QIDACHS [facility]; Protocol Last Admin: 02/26/23 07:54 Dose: Not Given Documented By: FAWN Non-Admin Reason: Patient Refused Lisinopril (Lisinopril 40 Mg Tablet) 40 mg PO DAILY [facility]; Protocol Melatonin (Melatonin 3 Mg Tablet) 6 mg PO BEDTIME PRN PRN Reason: Insomnia Metformin HCl (Metformin Hcl 1,000 Mg Tablet) 1,000 mg PO BID [facility] Methylprednisolone Sodium Succinate (Methylprednisolone Sod Succ 40 Mg/Ml Vial) 40 mg IVPUSH Q12H [facility] Last Admin: 02/26/23 07:54 Dose: 40 mg Documented By: FAWN Non-Formulary Medication (Cetirizine) 2 tab PO DAILY [facility] Non-Formulary Medication (Fluticasone Propion-Salmeterol [Advair Diskus]) 1 puff INHALE BID [facility] Non-Formulary Medication (Latanoprost (Pf)) 1 drop EYE-BOTH QPM [facility] Non-Formulary Medication (Tiotropium [place] [Spiriva With Handihaler]) 1 cap INHALE DAILY [facility] Ondansetron HCl (Ondansetron Hcl 4 Mg/2 Ml Vial) 4 mg IVPUSH Q8H PRN PRN Reason: Nausea and Vomiting Prazosin HCl (Prazosin Hcl 1 Mg Capsule) 2 mg PO BEDTIME [facility]; Protocol Prazosin HCl (Prazosin Hcl 1 Mg Capsule) 1 mg PO DAILY [facility]; Protocol Roflumilast (Roflumilast 500 Mcg Tablet) 500 mcg PO DAILY [facility] Sertraline HCl (Sertraline Hcl 50 Mg Tablet) 150 mg PO DAILY [facility] Sodium Chloride (0.9 % Sodium Chloride Flush 3 Ml Syringe) 3 ml IVFLUSH QSHIFT [facility] Last Admin: 02/26/23 07:55 Dose: 3 ml Documented By: FAWN Torsemide (Torsemide 20 Mg Tablet) 20 mg PO DAILY [facility]; Protocol Trazodone HCl (Trazodone Hcl 100 Mg Tablet) 300 mg PO BEDTIME [facility] Labs 02/26/23 04:38 02/26/23 04:38 Labs: Laboratory Results - last 24 hr 02/25/23 02/25/23 02/25/23 21:54 21:55 22:01 MCV 92.4 MCH 29.6 MCHC 32.0 RDW 14.5 Plt Count 133 L MPV 9.9 Immature Gran % (Auto) 0.5 H Neut % (Auto) 63.7 Lymph % (Auto) 26.8 [place] % (Auto) 6.5 Eos % (Auto) 1.9 Baso % (Auto) 0.6 Lymph # (Auto) 2.6 [place] # (Auto) 0.6 Eos # (Auto) 0.2 Baso # (Auto) 0.1 Abs Immat Gran (auto) 0.05 H Absolute Neuts (auto) 6.2 Absolute Nucleated RBC 0.020 H Nucleated RBC % (auto) 0.2 Smear Tech's Comments VERIFIED APTT 28.1 D-Dimer High Sensitivty 192 VBG pH 7.36 VBG pCO2 59 VBG pO2 49 VBG HCO3 34 H VBG O2 Saturation 81.0 VBG Base Excess 6.7 Anion Gap 16 Estim Creat Clear Calc 137.4 Estimated GFR > 60 POC Glucose Random Glucose 116 H Lactic Acid 0.9 Calcium 9.2 Total Bilirubin 0.5 AST 27 ALT 24 Alkaline Phosphatase 83 B-Natriuretic Peptide 42 Total Protein 7.5 Albumin 4.2 Influenza Type A (PCR) NEGATIVE Influenza Type B (PCR) NEGATIVE RSV RNA Qual (PCR) NEGATIVE SARS-CoV-2 RNA (RT-PCR) NEGATIVE 02/26/23 02/26/23 04:38 07:14 MCV 91.4 MCH 29.7 MCHC 32.5 RDW 14.4 Plt Count 129 L MPV 10.0 Immature Gran % (Auto) 1.2 H Neut % (Auto) 83.1 H Lymph % (Auto) 13.[address] [place] % (Auto) 1.6 L Eos % (Auto) 0.3 Baso % (Auto) 0.4 Lymph # (Auto) 0.[address] [place] # (Auto) 0.1 Eos # (Auto) 0.0 Baso # (Auto) 0.0 Abs Immat Gran (auto) 0.08 H Absolute Neuts (auto) 5.6 Absolute Nucleated RBC 0.000 Nucleated RBC % (auto) 0.0 Smear Tech's Comments APTT D-Dimer High Sensitivty VBG pH VBG pCO2 VBG pO2 VBG HCO3 VBG O2 Saturation VBG Base Excess Anion Gap 19 Estim Creat Clear Calc 135.2 Estimated GFR > 60 POC Glucose 155 H Random Glucose 183 H Lactic Acid Calcium 9.3 Total Bilirubin AST ALT Alkaline Phosphatase B-Natriuretic Peptide Total Protein Albumin Influenza Type A (PCR) Influenza Type B (PCR) RSV RNA Qual (PCR) SARS-CoV-2 RNA (RT-PCR) Assessment and Plan (1) Class 2 obesity: Status: Acute (2) Acute respiratory failure with hypoxia: Status: Acute (3) Acute exacerbation of chronic obstructive pulmonary disease: Status: Acute Plan This is a 53-year-old female with pertinent history of COPD not on home oxygen, essential hypertension, mood disorder, sxw-jhdsqep-oatjsvzzv diabetes mellitus who presents to the emergency department for evaluation of dyspnea. #. Acute hypoxemic respiratory failure secondary to acute exacerbation of COPD: -continue iv steroid, bronchodilatos by delfina mcfarland. wean off o2 #. Upr-oeyrjuu-nmwcgbphn diabetes mellitus. Initiating Accu-Cheks with sliding scale insulin, resume metformin #. Essential hypertension: Continue home antihypertensives #. Mood disorder: Continue home mood stabilizers #. Obesity: Counseled regarding diet and exercise DVT prophylaxis: Lovenox Full code need for inpt: copd not on home O2, now george O2 requirment Time Spent With Patient Time: Total time managing care of this patient today ____ minutes. Quality Stroke Does the patient have a stroke diagnosis?: No VTE Prior VTE?: No VTE Risk Level:: Medical - moderate - high VTE Device Contraindication: Treatment Not Indicated VTE Drug Contraindication: N/A - Med Ordered
[2023-02-26 13:42] LABS: Glucose, Whole Blood 120 mg/dL (60-115)
[2023-02-26] MEDS: Buprenorphine/Naloxone 4/1 mg FILM 1 FILM SUBLINGUAL (13:47)
[2023-02-26] MEDS: Sertraline HCL 50 MG TABLET 150 MG PO (13:47)
[2023-02-26] MEDS: Gabapentin 100 MG CAPSULE 200 MG PO ×3 (13:47→21:06)
[2023-02-26] MEDS: Famotidine 20 MG TABLET PO ×2 (13:48→21:08)
[2023-02-26] MEDS: hydrALAZINE HCl 25 MG TABLET PO ×2 (13:48→21:08)
[2023-02-26] MEDS: lisinopriL 40 MG TABLET PO (13:48)
[2023-02-26] MEDS: amLODIPine Besylate 10 MG TABLET PO (13:48)
[2023-02-26] MEDS: metFORMIN HCl 1,000 MG TABLET 1000 MG PO ×2 (13:48→21:07)
[2023-02-26] MEDS: Torsemide 20 MG TABLET PO (13:49)
[2023-02-26] MEDS: busPIRone HCl 10 MG TABLET PO ×2 (13:49→21:07)
[2023-02-26] MEDS: Roflumilast 500 MCG TABLET PO (14:48)
[2023-02-26] MEDS: Fluticasone Propionate Nasal 16 GM SPRAY 1 SPRAY NOSTRIL-B (14:48)
[2023-02-26] MEDS: Prazosin HCL 1 MG CAPSULE PO (14:48)
--- NOTE | 2023-02-26 14:53 | PC.NURSE ---
This Rn assumed care of patient at 1445. Pt is on commode at this time having bowel movement, agreeable to take medications. Aware that there is a bed upstairs for patient. Pt is alert and oriented x4, verbalizes 9/10 pain in back and neck. pt states she has been up and down to from the commode since receiving that medication from the last nurse . Pt verbalzies that she does not want to change into a hospital gown and does not want the linens changed on her bed. This rn respected pts wishes
[2023-02-26 16:34] LABS: Glucose, Whole Blood 120 mg/dL (60-115)
--- NOTE | 2023-02-26 18:13 | PC.NURSE ---
Patient has oxygen on at 2 L,91% sat,patient wants to take her oxygen off,no order for oxygen,Dr. Whitfield notified
--- NOTE | 2023-02-26 19:10 | PC.NURSE ---
patient refused skin assessment in robert area and buttocks ,denies having any skin issues
[2023-02-26 19:58] LABS: Glucose, Whole Blood 124 mg/dL (60-115)
[2023-02-26] MEDS: Prazosin HCL 1 MG CAPSULE 2 MG PO (21:06)
[2023-02-26] MEDS: HaloperidoL 1 MG TABLET 2 MG PO (21:07)
[2023-02-26] MEDS: Atorvastatin Calcium 20 MG TABLET PO (21:07)
[2023-02-26] MEDS: traZODone HCL 100 MG TABLET 300 MG PO (21:07)
--- NOTE | 2023-02-26 21:42 | PC.NURSE ---
Patient co itchyness at IV site after IV Azithromycin was started,requested IV out and refused to have another one inserted,no redness,no swelling noted,Dr. Mireles was notified,patient denied need for Benadryl
--- NOTE | 2023-02-27 06:45 | PC.NURSE ---
0100- patient continues to decline staff to insert new iv site; will continue to attempt access. hospitalist on duty made aware previous shift. abx tx reinforced.
--- NOTE | 2023-02-27 07:01 | PC.NURSE ---
0620- Patient continues to decline attempt for iv access, again reinforced importance of medications and abx's with no luck convincing her, she stated its too early for that . day RN updated in am report.
[2023-02-27 07:21] LABS: Glucose, Whole Blood 114 mg/dL (60-115)
[2023-02-27 07:27] VITALS: BP 162/77; PULSE 71; RESP 16; TEMP 36.2; O2SAT 94
--- NOTE | 2023-02-27 09:12 | PM.DS ---
DS: Providers Provider Date of Service: 02/27/23 Date of admission: 02/25/23 23:45 Primary care physician: Adriana Clayton CNP DS: Diagnosis Discharge Diagnosis (1) Class 2 obesity: Status: Acute (2) Acute respiratory failure with hypoxia: Status: Acute (3) Acute exacerbation of chronic obstructive pulmonary disease: Status: Acute DS: Summary Hospital Course Hospital Course: Admission HPI Chief Complaint: Dyspnea This is a 53-year-old female with pertinent history of COPD not on home oxygen, essential hypertension, mood disorder, [id number] diabetes mellitus who presents to the emergency department for evaluation of dyspnea. Patient states her symptoms started 2 days prior to presentation. Dyspnea is worse with ambulation. Also has associated wheezing. Admits cough with intermittent clear sputum production. Denies fever or chills. No chest discomfort, palpitations, abdominal pain, changes in urinary or bowel habits. In the emergency department, patient was found to be hypoxemic and placed on supplemental oxygen. Hospital course: The patient was admitted due to an acute exacerbation of COPD accompanied by acute hypoxic respiratory failure. Her treatment included the administration of bronchodilators via nebulizer and intravenous corticosteroids. Chest X-rays revealed no signs of pneumonia, and she was prescribed azithromycin as a precautionary measure for potential bronchitis. Throughout her hospital stay, her condition significantly improved. She now breathes comfortably with oxygen saturation levels ranging from 94% to 96% while in ambient air. Feeling much better, she has expressed her desire to be discharged and return home. As part of her discharge plan, she will continue a 5-day course of prednisone. She has been strongly advised against smoking. Time Spent with Patient Time attestation: Total time managing care of this patient today ____ minutes. Discharge coordination time: Greater than 30 minutes Quality: Safe Use of Opioids Does Pt have an Active Cancer Diagnosis on the Problem List?: No Quality: Stroke Does the patient have a stroke diagnosis?: No Physical Exam Vital Signs: Vital Signs: Last Vital Signs Temp 97.1 F 02/27/23 07:27 Pulse 71 02/27/23 07:27 Resp 16 02/27/23 07:27 BP 162/77 H 02/27/23 07:27 Pulse Ox 94 02/27/23 07:27 O2 Del Method Nasal Cannula 02/27/23 07:27 O2 Flow Rate 2 02/27/23 07:27 Oxygen Flow Rate 6 02/25/23 20:49 BMI result Body Mass Index 35.9 Const: Other: General: AO X 3, no acute distress Resp: CTA bilateral CVS: S1,S2,RRR GI: +BS, NT, no distention Skin: No rash Neuro: motor grossly intact Psych: appropriate affect DS: Data Data Completed and Pending Labs on day of discharge: Laboratory Results - last 24 hr 02/26/23 02/26/23 02/26/23 13:38 16:30 19:51 POC Glucose 120 H 120 H 124 H 02/27/23 07:11 POC Glucose 114 Preliminary micro results at discharge 02/25/23 21:56 Blood Culture - Preliminary Blood - Venous No growth after 24 hours. 02/25/23 21:54 Blood Culture - Preliminary Blood - Venous No growth after 24 hours. Discharge Plan Discharge Anticipated Discharge Date/Time: 02/27/23 09:07 Patient Disposition: Home, Self-Care Discharge Diagnosis: Acute exacerbation of COPD, acute hypoxic respiratory failure Referrals: Adriana Cadena CNP [Primary Care Provider] - 1 Week Discharge Medications: New prednisone 20 mg tablet 40 mg PO DAILY Qty: 6 0RF Continued sertraline 100 mg Tablet 150 mg PO DAILY prazosin 1 mg Capsule 2 mg PO BEDTIME amlodipine 5 mg Tablet 10 mg PO DAILY ibuprofen 800 mg tablet 1 tab PO Q12H PRN (Reason: Pain) acetaminophen [8 Hour Pain Reliever] 650 mg tablet extended release 1,300 mg PO Q8H PRN (Reason: Pain) docusate sodium 100 mg Tablet 100 mg PO BID PRN (Reason: Constipation) ondansetron 4 mg tablet,disintegrating 8 mg PO Q8H PRN (Reason: Nausea) roflumilast 500 mcg Tablet 500 mcg PO DAILY buprenorphine-naloxone [Suboxone] 4-1 mg film 1 strip sublingual DAILY latanoprost (PF) 0.005 % Drops 1 drp OPHTHALMIC (EYE) QPM trazodone 150 mg tablet 300 mg PO BEDTIME metformin 500 mg tablet 1,000 mg PO BID albuterol sulfate 2.5 mg /3 mL (0.083 %) solution for nebulization 3 ml inhalation QID PRN (Reason: Wheezing) cetirizine 5 mg tablet 2 tab PO DAILY famotidine 20 mg tablet 1 tab PO BID fluticasone propion-salmeterol [Advair Diskus] 100-50 mcg/dose blister with device 1 puff inhalation BID lisinopril 40 mg tablet 1 tab PO DAILY fluticasone propionate 50 mcg/actuation spray,suspension 1 spray intranasal BID tiotropium bromide [Spiriva with HandiHaler] 18 mcg capsule, w/inhalation device 1 cap inhalation DAILY prazosin 1 mg capsule 1 mg PO DAILY gabapentin 400 mg Capsule 200 mg PO QID 30 Days Qty: 60 0RF atorvastatin 20 mg tablet 20 mg PO DAILY torsemide 20 mg tablet 20 mg PO DAILY haloperidol 1 mg tablet 2 mg PO BEDTIME hydralazine 25 mg tablet 25 mg PO TID buspirone 10 mg tablet 10 mg PO TID Discharge Orders: Discharge Order (Routine); Ordered 02/27/23 Ordered By: Felice Whitfield Diet: Advance to usual diet Activity on Discharge: As tolerated Stand Alone Forms: Patient Portal Discharge page Care Plan Goals: Recovery from acute hypoxic respiratory failure and COPD exacerbation. Health Concerns: acute hypoxic respiratory failure COPD exacerbation bronchitis Plan of Treatment: take prednisone as directed take azithromycin for bronchitis do not smoke follow-up with your primary care doctor within a week, call for appointment. Assessment: See above
[2023-02-27] MEDS: busPIRone HCl 10 MG TABLET PO (09:22)
[2023-02-27] MEDS: Gabapentin 100 MG CAPSULE 200 MG PO (09:22)
[2023-02-27] MEDS: hydrALAZINE HCl 25 MG TABLET PO (09:22)
[2023-02-27] MEDS: Loratadine 10 MG TABLET PO (09:22)
[2023-02-27] MEDS: Sertraline HCL 50 MG TABLET 150 MG PO (09:22)
[2023-02-27] MEDS: Famotidine 20 MG TABLET PO (09:22)
[2023-02-27] MEDS: lisinopriL 40 MG TABLET PO (09:22)
[2023-02-27] MEDS: amLODIPine Besylate 10 MG TABLET PO (09:22)
[2023-02-27] MEDS: Prazosin HCL 1 MG CAPSULE PO (09:22)
[2023-02-27] MEDS: Roflumilast 500 MCG TABLET PO (09:22)
[2023-02-27] MEDS: metFORMIN HCl 1,000 MG TABLET 1000 MG PO (09:22)
[2023-02-27] MEDS: 0.9 % Sodium Chloride Flush 3 ML SYRINGE IVFLUSH (09:23)
[2023-02-27 09:27] VITALS: O2SAT 94
--- NOTE | 2023-02-27 09:56 | MHC.CM.PN ---
costa /from detention will pick pt up at 11
[2023-02-27 11:35] LABS: Glucose, Whole Blood 128 mg/dL (60-115)
== END 2023-02-27 13:07 | disposition home or self-care (01) | DRG 140 ==
LOC: HO.ED 23:26 → HO.EDOVER 23:53 → HO.S3 02-26 14:07
PROVIDERS: Admitting Provider Student in an Organized Health Care Education/Training Program; Emergency Provider Emergency Medicine Emergency Medical Services; PCP Nurse Practitioner Family; Visit Provider Internal Medicine
DX: J44.1 Chronic obstructive pulmonary disease with (acute) exacerbation (principal); J96.01 Acute respiratory failure with hypoxia; E11.9 Type 2 diabetes mellitus without complications; F39 Unspecified mood [affective] disorder; E66.8 Other obesity; Z68.35 Body mass index [BMI] 35.0-35.9, adult; F17.210 Nicotine dependence, cigarettes, uncomplicated; Z71.6 Tobacco abuse counseling; F11.20 Opioid dependence, uncomplicated; Z20.822 Contact with and (suspected) exposure to COVID-19; Z79.51 Long term (current) use of inhaled steroids; Z79.84 Long term (current) use of oral hypoglycemic drugs; Z79.899 Other long term (current) drug therapy
CPT/HCPCS: 0241U; 36415; 71045; 80048; 80053; 82803; 82947; 83605; 83880; 84484; 85025; 85379; 85730; 87040; 93005; 94640; 99285; J0456; J0696; J1170; J1650; J2920; J2930

== ENCOUNTER → 2023-02-25 23:45 | Outpatient (BNV) | payer OTHER, SELFPAY | PROVIDERS: Admitting Provider Student in an Organized Health Care Education/Training Program; Emergency Provider Emergency Medicine Emergency Medical Services; PCP Nurse Practitioner Family; Visit Provider Student in an Organized Health Care Education/Training Program | DX: J96.01 Acute respiratory failure with hypoxia (principal); J44.1 Chronic obstructive pulmonary disease with (acute) exacerbation; E66.9 Obesity, unspecified; Z68.35 Body mass index [BMI] 35.0-35.9, adult | CPT/HCPCS: 99222; 99232; 99239 ==

== ENCOUNTER 2023-03-31 21:15 | Inpatient (IN) | payer OTHER, SELFPAY ==
--- NOTE | ~2023-03-31 | XR_ITS ---
EXAMINATION: XR CHEST CLINICAL INFORMATION: Shortness of breath COMPARISON: Chest radiograph from 02/25/2023 TECHNIQUE: Frontal view of the chest was obtained. FINDINGS: Redemonstration of bronchial wall thickening throughout the bilateral lung davis reflecting infectious/inflammatory etiology in the appropriate clinical setting. Limited evaluation the bilateral lung apices. Bilateral low lung volumes. No pneumothorax. Cardiac mediastinal silhouette is stable. Osseous structures are intact. Soft tissues are unremarkable. XR/XR chest 1V IMPRESSION: 1. Redemonstration of bronchial wall thickening throughout the bilateral lung davis reflecting infectious/inflammatory etiology in the appropriate clinical setting. 2. Limited evaluation the bilateral lung apices. 3. Bilateral low lung volumes.
[2023-03-31 21:32] VITALS: BP 180/90; PULSE 120; O2SAT 88
[2023-03-31 21:35] VITALS: PULSE 120; RESP 18; TEMP 37.3; O2SAT 82; O2SAT 88; BMI 37.3
--- NOTE | 2023-03-31 22:01 | ED.GENADULT ---
HPI - General Adult General Chief complaint: Upper Respiratory Symptoms Stated complaint: cough x2 weeks. 88% o2 at base. 4lpm current Time Seen by Provider: 03/31/23 21:58 Source: patient and EMS Mode of arrival: EMS History of Present Illness HPI narrative: 53-year-old female brought in by EMS from the half-way with a productive cough for 2 weeks, history of COPD but denies use of nasal cannula at the facility. EMS reports that patient was found to be in the 50s on oxygenation and her baseline is 85-88%. Related Data Home Medications Medication Instructions Recorded Confirmed sertraline 100 mg tablet 150 mg PO DAILY 02/21/20 02/26/23 amlodipine 5 mg tablet 10 mg PO DAILY 02/22/20 02/26/23 prazosin 1 mg capsule 2 mg PO BEDTIME 02/22/20 02/26/23 albuterol sulfate 2.5 mg/3 mL 3 ml inhalation QID PRN Wheezing 11/14/21 02/26/23 (0.083 %) solution for nebulization cetirizine 5 mg tablet 2 tab PO DAILY 11/14/21 02/26/23 famotidine 20 mg tablet 1 tab PO BID 11/14/21 02/26/23 fluticasone 100 mcg-salmeterol 50 1 puff inhalation BID 11/14/21 02/26/23 mcg/dose blistr powdr for inhalation (Advair Diskus) fluticasone propionate 50 1 spray intranasal BID 11/14/21 02/26/23 mcg/actuation nasal spray,suspension lisinopril 40 mg tablet 1 tab PO DAILY 11/14/21 02/26/23 metformin 500 mg tablet 1,000 mg PO BID 11/14/21 02/26/23 prazosin 1 mg capsule 1 mg PO DAILY 11/14/21 02/26/23 tiotropium bromide 18 mcg capsule 1 cap inhalation DAILY 11/14/21 02/26/23 with inhalation device (Spiriva with HandiHaler) acetaminophen 650 mg 1,300 mg PO Q8H PRN Pain 02/03/22 02/26/23 tablet,extended release (8 Hour Pain Reliever) buprenorphine 4 mg-naloxone 1 mg 1 strip sublingual DAILY 02/03/22 02/26/23 sublingual film (Suboxone) docusate sodium 100 mg tablet 100 mg PO BID PRN Constipation 02/03/22 02/26/23 ibuprofen 800 mg tablet 1 tab PO Q12H PRN Pain 02/03/22 02/26/23 latanoprost (PF) 0.005 % eye drops 1 drp ophthalmic (eye) QPM 02/03/22 02/26/23 ondansetron 4 mg disintegrating 8 mg PO Q8H PRN Nausea 02/03/22 02/26/23 tablet roflumilast 500 mcg tablet 500 mcg PO DAILY 02/03/22 02/26/23 trazodone 150 mg tablet 300 mg PO BEDTIME 02/03/22 02/26/23 atorvastatin 20 mg tablet 20 mg PO DAILY 02/26/23 02/26/23 buspirone 10 mg tablet 10 mg PO TID 02/26/23 02/26/23 haloperidol 1 mg tablet 2 mg PO BEDTIME 02/26/23 02/26/23 hydralazine 25 mg tablet 25 mg PO TID 02/26/23 02/26/23 torsemide 20 mg tablet 20 mg PO DAILY 02/26/23 02/26/23 Previous Rx's Medication Instructions Recorded gabapentin 400 mg capsule 200 mg (1/2 x 400 mg) PO QID 30 11/15/21 days #60 caps azithromycin 250 mg tablet 250 mg PO DAILY 3 days #3 tabs 02/27/23 prednisone 20 mg tablet 40 mg (2 x 20 mg) PO DAILY #6 tabs 02/27/23 Allergies Allergy/AdvReac Type Severity Reaction Status Date / Time codeine [CODEINE] AdvReac Mild RASH Verified 03/31/23 21:38 oxycodone [From OXYCONTIN] AdvReac Mild RASH Verified 03/31/23 21:38 Review of Systems Review of Systems: Pertinent positives and negatives as stated in HPI [facility] Past Medical History Source: nursing notes reviewed Medical History Class 2 obesity Hypoxia Diabetes mellitus Pulmonary nodule Chronic venous stasis dermatitis Hypertension COPD (chronic obstructive pulmonary disease) Asthma Surgical History H/O neck surgery Social History Social History Household Members: Other Household Members Other:: half-way Housing: Other Housing Other:: half-way Do you presently have visiting nurse or other home services: Yes Alcohol intake: unknown Patient Tobacco Use Status: Current everyday Tobacco user Tobacco use type: Cigarette Cigarette Packs Per Day: 1 Cigarettes Per Day: 20.0 Years Smoked: 22 Smoked in Last 30 Days: Yes Second Hand Smoke Exposure: Yes Substance Use Type: Former Substance User Advance Directives: No Advance Directives Information Provided: No service: No Current occupational status: unemployed Physical Exam ED Vital Signs: Vital Signs - 24 hr 03/31/23 21:35 03/31/23 21:35 03/31/23 22:31 Temperature 99.1 F Pulse Rate 120 H 117 H Respiratory Rate 18 18 Blood Pressure Pulse Oximetry 82 L 88 L Oxygen Delivery Method Nasal Cannula Nasal Cannula Oxygen Flow Rate 03/31/23 23:18 03/31/23 23:19 04/01/23 01:43 Temperature Pulse Rate 124 H 114 H Respiratory Rate 22 H 22 H 14 Blood Pressure 142/73 H Pulse Oximetry 92 Oxygen Delivery Method BiPAP Oxygen Flow Rate 5 BMI result Body Mass Index 37.3 VITAL SIGNS: Reviewed. GENERAL: Chronically ill, in no acute distress. HEAD: Normocephalic/atraumatic EYES: PERRLA, EOMI EARS: Ext canals without abnormality NOSE: Nares patent bilateral OROPHARYNX: no oral lesions noted, posterior pharynx clear NECK: Supple, no adenopathy LUNGS: Normal breath sounds. No adventitious sounds or accessory muscle use. SpO2<82> room air, improved after placement on nasal cannula CARDIOVASCULAR: Regular rate and rhythm without noted murmurs, no JVD or lower extremity edema. ABDOMEN: Soft, non-tender, non-distended with bowel sounds. MUSCULOSKELETAL: No tenderness, deformities, or effusions noted on gross inspection. EXTREMITIES: No cyanosis, clubbing or edema. SKIN: Inspection of the skin reveals no rashes NEUROLOGIC: Alert and oriented x 3. Strength and sensation to light touch were grossly intact x 4. Medications Administered Generic Name Dose Route Start Last Admin Trade Name Freq PRN Reason Stop Dose Admin Sodium Chloride 500 mls @ 999 mls/hr 04/01/23 02:45 04/01/23 02:42 Ns IV 04/01/23 03:15 999 mls/hr .Q31M ELAN Administration Discontinued Medications Generic Name Dose Route Start Last Admin Trade Name Freq PRN Reason Stop Dose Admin Albuterol Sulfate 5 mg/ 0 mg 03/31/23 22:10 03/31/23 22:13 Albuterol/Ipratropium 3 ml INHALE 03/31/23 22:11 4 each ONCE ONE Administration Fentanyl 25 mcg 04/01/23 02:30 04/01/23 02:39 Fentanyl Citrate/Pf 100 Mcg/2 Ml Vial IVPUSH 04/01/23 02:31 25 mcg ONCE ONE Administration Protocol Piperacillin Sod/Tazobactam 50 mls @ 100 mls/hr 03/31/23 23:20 03/31/23 23:57 Sod 3.375 gm/ Sodium Chloride IV 03/31/23 23:49 100 mls/hr ONCE ONE Administration Levalbuterol HCl 3.75 mg 03/31/23 22:52 03/31/23 23:18 Levalbuterol Hcl 1.25 Mg/3 Ml Vial.Neb INHALE 03/31/23 22:53 3.75 mg ONCE ONE Administration Methylprednisolone Sodium Succinate 125 mg 03/31/23 22:01 03/31/23 22:25 Methylprednisolone Sod Succ 125 Mg/2 Ml Vial IVPUSH 03/31/23 22:02 125 mg ONCE ONE Administration Medical Decision Making Medical Decision Making [facility] Narrative: 2199: 53-year-old female with history and clinical presentation, DDX: CHF, chronic lung disease, possible pneumonia INTERVENTION: Start patient on ED bronch protocol, steroids, BiPAP I reviewed all investigations and patient is noted to have leukocytosis with a left shift, no evidence of anemia or thrombocytopenia in suspect that patient's elevated hemoglobin is secondary to underlying chronic lung illness. VBG demonstrates respiratory acidosis with pH-7.29 and patient is also noted to be hypercapnic-82. Chemistry indices do not demonstrate an FELIPE and there is no electrolyte derangement. I did review patient's viral testing from February which was negative. Chest x-ray demonstrates bronchial wall thickening likely further supporting exacerbation underlying chronic disease. On review of repeat VBG there is no improvement noted, patient remains hypercapnic with respiratory acidosis but is not obtunded and any way and readily answers any questions on simple verbal stimuli. Will proceed with ABG as well as fentanyl to assist the patient in tolerating continued use of the BiPAP. 0249: I discussed the case with DR Au who accepts admission to the ICU. Differential Diagnosis Differential Diagnoses: The differential diagnosis associated with the presentation includes Please see the discussion above Admission/Observation Consideration of admission/observation: Escalation of care including admission/observation considered Please see the discussion above Consult Healthcare Provider Management of the patient was discussed with: Hospitalist Please see the discussion above Lab Data MDM Lab Attestation statement: I reviewed the patient's lab results. Please see the discussion above 03/31/23 22:21 03/31/23 22:21 Labs: Lab Results 03/31/23 03/31/23 04/01/23 Range/Units 22:21 22:25 02:01 WBC 12.3 H (4.8-10.8) X10*3/uL RBC 5.75 H (4.20-5.50) X10*6/uL Hgb 16.4 H (12.0-16.0) g/dl Hct 51.6 H (37.0-47.0) % MCV 89.7 (80.0-98.0) fL MCH 28.5 (27.0-33.0) pg MCHC 31.8 (31.0-35.0) g/dl RDW 14.3 (11.0-16.0) % Plt Count 163 D (160-400) X10*3/uL MPV 9.8 (9.4-12.3) fL Immature Gran % (Auto) 0.6 H (0.0-0.4) % Neut % (Auto) 78.7 H (45-73) % Lymph % (Auto) 11.1 L (20-40) % [place] % (Auto) 7.6 (2-11) % Eos % (Auto) 1.5 (0-4) % Baso % (Auto) 0.5 (0-2) % Lymph # (Auto) 1.4 (1.2-4.9) X10*3/uL [place] # (Auto) 0.9 (0.1-1.2) X10*3/uL Eos # (Auto) 0.2 (0.0-0.4) X10*3/uL Baso # (Auto) 0.1 (0.0-0.2) X10*3/uL Abs Immat Gran (auto) 0.07 H (0.00-0.03) X10*3/uL Absolute Neuts (auto) 9.7 H (2.0-8.3) x10*3/uL Absolute Nucleated RBC 0.000 (0.0-0.012) X10*3/uL Nucleated RBC % (auto) 0.0 (0.0-0.2) /100WBC O2 Saturation % ABG pH at Pt Temp (7.35-7.45) ABG pCO2 at Pt Temp (32-45) mmHg ABG pO2 at Pt Temp (83-108) mmHg ABG HCO3 (22-26) mmol/L ABG Base Excess (Actual) mmol/L VBG pH 7.29 L 7.26 L (7.32-7.43) VBG pCO2 82 88 mmHg VBG pO2 57 54 mmHg VBG HCO3 39 H 40 H (22-26) mmol/L VBG O2 Saturation 84.0 81.0 % VBG Base Excess 8.8 8.8 mmol/L Sodium 140 (135-145) mmol/L Potassium 4.0 (3.3-5.1) mmol/L Chloride 96 (96-108) mmol/L Carbon Dioxide 35 H (22-29) mmol/L Anion Gap 13 (12-20) BUN 7 L (9-16) mg/dL Creatinine 0.75 (0.5-1.4) mg/dL Estim Creat Clear Calc 101.2 Estimated GFR > 60 Random Glucose 167 H (60-115) mg/dL Lactic Acid 1.0 (0.5-2.0) mmol/L Calcium 9.6 (8.4-10.2) mg/dL B-Natriuretic Peptide 13 (<100) pg/mL 04/01/23 Range/Units 02:53 WBC (4.8-10.8) X10*3/uL RBC (4.20-5.50) X10*6/uL Hgb (12.0-16.0) g/dl Hct (37.0-47.0) % MCV (80.0-98.0) fL MCH (27.0-33.0) pg MCHC (31.0-35.0) g/dl RDW (11.0-16.0) % Plt Count (160-400) X10*3/uL MPV (9.4-12.3) fL Immature Gran % (Auto) (0.0-0.4) % Neut % (Auto) (45-73) % Lymph % (Auto) (20-40) % Oxford % (Auto) (2-11) % Eos % (Auto) (0-4) % Baso % (Auto) (0-2) % Lymph # (Auto) (1.2-4.9) X10*3/uL [place] # (Auto) (0.1-1.2) X10*3/uL Eos # (Auto) (0.0-0.4) X10*3/uL Baso # (Auto) (0.0-0.2) X10*3/uL Abs Immat Gran (auto) (0.00-0.03) X10*3/uL Absolute Neuts (auto) (2.0-8.3) x10*3/uL Absolute Nucleated RBC (0.0-0.012) X10*3/uL Nucleated RBC % (auto) (0.0-0.2) /100WBC O2 Saturation 90.0 % ABG pH at Pt Temp 7.28 L (7.35-7.45) ABG pCO2 at Pt Temp 77 H* (32-45) mmHg ABG pO2 at Pt Temp 67 L (83-108) mmHg ABG HCO3 37 H (22-26) mmol/L ABG Base Excess (Actual) 6.7 mmol/L VBG pH (7.32-7.43) VBG pCO2 mmHg VBG pO2 mmHg VBG HCO3 (22-26) mmol/L VBG O2 Saturation % VBG Base Excess mmol/L Sodium (135-145) mmol/L Potassium (3.3-5.1) mmol/L Chloride (96-108) mmol/L Carbon Dioxide (22-29) mmol/L Anion Gap (12-20) BUN (9-16) mg/dL Creatinine (0.5-1.4) mg/dL Estim Creat Clear Calc Estimated GFR Random Glucose (60-115) mg/dL Lactic Acid (0.5-2.0) mmol/L Calcium (8.4-10.2) mg/dL B-Natriuretic Peptide (<100) pg/mL ABG Data Attestation ABG: I personally reviewed and interpreted this ABG as follows: Interpretation: Resp acidosis with hypercapnia Radiology Impression Discussion of test interpretation with radiology: I have reviewed the radiologist's reading. Radiologist Impression: Please see the discussion above External Record Review External record reviewed: Outpatient record, Prior outpatient labs and Prior outpatient radiology Chronic Conditions Patient?s care impacted by: Diabetes and Hypertension Critical Care Time Critical Care Time Critical Care Time: Yes Total Critical Care Time: 60 Attestation: I personally attest to this time spent taking care of the patient. Discharge Plan Discharge Clinical Impression: Acute respiratory failure, COPD exacerbation Patient Disposition: Admitted As Inpatient
[2023-03-31] MEDS: Albuterol Sulfate 5 MG, Albuterol/Iprat 2.5/0.5MG 3 ML 3 ML INHALE (22:13)
[2023-03-31] MEDS: methylPREDNISolone Sod Succ 125 MG/2 ML VIAL IVPUSH (22:25)
[2023-03-31 22:27] LABS: MANUAL DIFF FLAG NO
[2023-03-31 22:28] LABS: Basophils Absolute Auto 0.1 X10*3/uL (0.0-0.2); Basophils Percent Auto 0.5 % (0-2); Eosinophils Absolute Auto 0.2 X10*3/uL (0.0-0.4); Eosinophils Percent Auto 1.5 % (0-4); Hematocrit 51.6 % (37.0-47.0); Hemoglobin 16.4 g/dl (12.0-16.0); Imm Gran Abs Auto 0.07 X10*3/uL (0.00-0.03); Imm Gran Pct Auto 0.6 % (0.0-0.4); Lymphocytes Absolute Auto 1.4 X10*3/uL (1.2-4.9); Lymphocytes Percent Auto 11.1 % (20-40); Mean Corpuscular HGB Conc 31.8 g/dl (31.0-35.0); Mean Corpuscular Hemoglobin 28.5 pg (27.0-33.0); Mean Corpuscular Volume 89.7 fL (80.0-98.0); Mean Platelet Volume 9.8 fL (9.4-12.3); Monocytes Absolute Auto 0.9 X10*3/uL (0.1-1.2); Monocytes Percent Auto 7.6 % (2-11); Neutrophils Absolute Auto 9.7 x10*3/uL (2.0-8.3); Neutrophils Percent Auto 78.7 % (45-73); Platelet Count 163 X10*3/uL (160-400); Red Blood Count 5.75 X10*6/uL (4.20-5.50); Red Cell Distribution Width 14.3 % (11.0-16.0); White Blood Count 12.3 X10*3/uL (4.8-10.8)
[2023-03-31 22:30] LABS: Venous Blood Gas Refer to POC result
[2023-03-31 22:31] VITALS: PULSE 117; RESP 18; O2SAT 86
[2023-03-31 22:31] LABS: VBG Base Excess 8.8 mmol/L; VBG HCO3 39 mmol/L (22-26); VBG pCO2 82 mmHg; VBG pH 7.29 (7.32-7.43); VBG pO2 57 mmHg
[2023-03-31 22:41] LABS: Anion Gap 13 (12-20); Blood Urea Nitrogen 7 mg/dL (9-16); Calcium 9.6 mg/dL (8.4-10.2); Carbon Dioxide 35 mmol/L (22-29); Chloride 96 mmol/L (96-108); Creatinine Clr Calc Pharmacy 101.2; Estimated Glomerular Filt Rate > 60; Glucose Random 167 mg/dL (60-115); Sodium 140 mmol/L (135-145)
[2023-03-31 23:18] VITALS: PULSE 124; RESP 22; O2SAT 91
[2023-03-31] MEDS: levalbuterol HCL 1.25 MG/3 ML VIAL.NEB 3.75 MG INHALE (23:18)
[2023-03-31 23:19] VITALS: PULSE 124; RESP 22; O2SAT 90
[2023-03-31 23:39] LABS: B Type Natriuretic Peptide 13 pg/mL (<100)
[2023-03-31] MEDS: Piperacillin Sodium/Tazobactam 3.375 GM in 0.9 % Sodium Chloride 50 ML IV (23:57)
[2023-04-01] VITALS (17 sets, daily range): BP systolic 114–168; BP diastolic 57–88; PULSE 88–114; RESP 14–31; TEMP 36.3–36.6; O2SAT 87–93; BMI 38.9
[2023-04-01 02:09] LABS: VBG Base Excess 8.8 mmol/L; VBG HCO3 40 mmol/L (22-26); VBG pCO2 88 mmHg; VBG pH 7.26 (7.32-7.43); VBG pO2 54 mmHg
[2023-04-01 02:10] LABS: Venous Blood Gas Refer to POC result
[2023-04-01] MEDS: fentaNYL citrate/PF 100 MCG/2 ML VIAL 25 MCG IVPUSH (02:39)
[2023-04-01] MEDS: 0.9 % Sodium Chloride 500 ML 999 ML IV (02:42)
[2023-04-01 02:58] LABS: ABG Base Excess 6.7 mmol/L; ABG HCO3 37 mmol/L (22-26); ABG pCO2 77 mmHg (32-45); ABG pH 7.28 (7.35-7.45); ABG pO2 67 mmHg (83-108)
[2023-04-01] MEDS: acetaZOLAMIDE sodium 500 MG VIAL 375 MG IVPUSH (03:23)
[2023-04-01] MEDS: Heparin Sodium,Porcine 5,000 UNIT/ML VIAL 5000 UNIT SUBCUT (03:23)
[2023-04-01 03:33] LABS: Glucose, Whole Blood 233 mg/dL (60-115)
[2023-04-01] MEDS: Insulin Lispro 100 UNIT/ML 3 ML VIAL SUBCUT (03:37)
--- NOTE | 2023-04-01 03:52 | PC.NURSE ---
report given to JORDON Vasquez
[2023-04-01 03:56] LABS: ABG Refer to POC result
[2023-04-01 04:20] LABS: Appearance Urine Clear; Color Urine Dark Yellow; Glucose Urine UA Negative (Negative); Leukocyte Esterase Urine Negative (Negative); Nitrite Urine Negative (Negative); PH 6.5 (5.0-9.0); Specific Gravity - Urine 1.025 (1.005-1.025); UMIC TRIGGER UACC YES; Urine Blood Negative (Negative); Urine Ketones Negative (Negative); Urine Protein 300 (3+) mg/dL (Neg-Trace)
[2023-04-01] MEDS: Haloperidol Lactate 5 MG/ML VIAL 2 MG IVPUSH (04:22)
[2023-04-01 04:25] LABS: Bacteria Urine 1+ (None Seen); RBC Urine 0-2 /HPF (0-2); Squamous Epithelial Cell Urine 0-2 /HPF (0-2); WBC Urine 0-5 /HPF (0-5)
[2023-04-01 04:38] LABS: COVID-19 Test Negative (Negative); IDNOW Serial# 08D9AD1C; IDNOW Serial# BCCEAD1C; Influenza A Negative (Negative); Influenza B2 Negative (Negative)
[2023-04-01 05:19] LABS: VBG Base Excess 5.9 mmol/L; VBG HCO3 34 mmol/L (22-26); VBG pCO2 61 mmHg; VBG pH 7.34 (7.32-7.43); VBG pO2 56 mmHg
[2023-04-01 05:49] LABS: MANUAL DIFF FLAG NO
[2023-04-01 05:54] LABS: Basophils Percent Auto 0.2 % (0-2); Eosinophils Percent Auto 0.2 % (0-4); Hemoglobin 15.2 g/dl (12.0-16.0); Imm Gran Abs Auto 0.09 X10*3/uL (0.00-0.03); Lymphocytes Absolute Auto 0.6 X10*3/uL (1.2-4.9); Lymphocytes Percent Auto 7.5 % (20-40); Mean Corpuscular Hemoglobin 28.7 pg (27.0-33.0); Mean Corpuscular Volume 92.5 fL (80.0-98.0); Mean Platelet Volume 9.8 fL (9.4-12.3); Monocytes Absolute Auto 0.2 X10*3/uL (0.1-1.2); Monocytes Percent Auto 1.9 % (2-11); Neutrophils Absolute Auto 7.7 x10*3/uL (2.0-8.3); Neutrophils Percent Auto 89.2 % (45-73); Platelet Count 132 X10*3/uL (160-400); Red Cell Distribution Width 14.3 % (11.0-16.0); White Blood Count 8.6 X10*3/uL (4.8-10.8)
[2023-04-01 06:15] LABS: Albumin Level 3.9 g/dL (3.5-5.0); Anion Gap 17 (12-20); Blood Urea Nitrogen 9 mg/dL (9-16); Calcium 8.8 mg/dL (8.4-10.2); Carbon Dioxide 30 mmol/L (22-29); Chloride 99 mmol/L (96-108); Creatinine Clr Calc Pharmacy 91.5; Estimated Glomerular Filt Rate > 60; Glucose Random 220 mg/dL (60-115); Magnesium 1.4 mg/dL (1.6-2.6); Phosphorus 3.7 mg/dL (2.7-4.5); Potassium 3.6 mmol/L (3.3-5.1); Sodium 142 mmol/L (135-145)
--- NOTE | 2023-04-01 06:23 | PC.NURSE ---
Pt admitted to ICU from ED at approx 0400. Upon initial assessment- but alert but slightly agitated ,wanting to take off BiPAP, given PRN Haldol x1 with good effect. Afebrile. NSR/ST on tele, 80-100s. BP WNL. BiPAP in place, on 27/10/40%, SpO2 88-92% per MD Selby. NPO. Purewick in place, voided in ED. Skin overall intact. Bed locked in low position, alarm on.
[2023-04-01 06:51] LABS: Venous Blood Gas Refer to POC result
--- NOTE | 2023-04-01 07:08 | PC.NURSE ---
pt became agitated during assessment and refuses to wear bipap any longer. pt transisitioned to 2 L nc. exp wheezing and wet cough present.
[2023-04-01] MEDS: Magnesium Sulfate/H2O 2 GM/50 ML PIGGYBACK IV (07:44)
[2023-04-01 07:49] LABS: Glucose, Whole Blood 199 mg/dL (60-115)
--- NOTE | 2023-04-01 09:15 | PHA.MEDREC ---
Addendum entered by Joshua Girard 04/01/23 09:17: Pharmacy claim history shows that she had been picking up a Haloperidol 0.5 mg tablet (QTY60/30DS) along with a lamotrigine 100mg tablet (QTY60/30DS). However, her [facility] med list does not have either medication listed down. I tried calling the [facility] with the phone number the patient gave me but no one is picking up the phone. The patient also does not know if they're taking the medications. Leaving off med rec at this time. Original Note: Pharmacy Consult ? Medication Reconciliation Pharmacy has completed the medication reconciliation.
--- NOTE | 2023-04-01 09:19 | P.HPCC_ITS ---
History of Present Illness Date of Service: 04/01/23 Chief Complaint: Acute hypoxic and hypercapnic respiratory failure 53-year-old lady, active 30 pack-year smoker, with underlying COPD, hypertension, ?bipolar disorder, diabetes mellitus, ?diastolic heart failure followed by Dr. Miramontes at [facility], admitted on 04/01/2023 with acute hypoxic and hypercapnic respiratory failure initially briefly requiring BiPAP, now titrated off. She was treated with systemic glucocorticoids, nebulized bronchodilators, and IV acetazolamide with significant improvement. Patient has been titrated off BiPAP. Patient states that her respiratory symptoms have resolved and she is back to her baseline. Review of Systems 2 Constitutional: Constitutional: Denies daytime sleepiness, Denies excessive sweating, Denies fatigue, Denies fever(s), Denies lethargy, Denies malaise, Denies night sweats, Denies snoring and Denies weight loss Eyes: Eyes: Denies blurry vision and Denies itchy eyes ENT: Denies nasal congestion, Denies post nasal drip, Denies sinus pain, Denies sinus pressure and Denies other ( Thrush) Cardiovascular: Cardiovascular: Denies chest pain, Denies pedal edema, Denies dyspnea, Denies orthopnea and Denies paroxysmal nocturnal dyspnea Respiratory: Respiratory: Denies cough, Denies hemoptysis, Denies excessive phlegm production, Denies dyspnea, Denies snoring and Denies wheezing Gastrointestinal: Gastrointestinal: Denies abdominal pain and Denies heartburn Musculoskeletal: Musculoskeletal: Denies myalgias, Denies arthralgias and Denies joint swelling Integumentary/Breasts: Skin/Breast: Denies rash Neurologic: Denies memory loss and Denies seizure-like activity Psychiatric: Psychiatric: Denies abnormal sleep pattern, Denies anxiety and Denies memory loss Endocrine: Endocrine: Denies excessive sweating, Denies fatigue and Denies heat intolerance Hematologic/Lymphatic: Hematologic/Lymphatic: Denies easy bruising Allergic/Immunologic: Allergic/Immunologic: Denies itchy eyes, Denies seasonal rhinorrhea and Denies wheezing PMFSH Past Medical History Medical History Class 2 obesity Hypoxia Diabetes mellitus Pulmonary nodule Chronic venous stasis dermatitis Hypertension COPD (chronic obstructive pulmonary disease) Asthma Surgical History Surgical History H/O neck surgery Social History Social History Household Members: None Household Members Other:: care home Housing: Other Housing Other:: [facility]pc Do you presently have visiting nurse or other home services: No Unable to assess alcohol history related to: Unknown Alcohol intake: unknown Patient Tobacco Use Status: Current everyday Tobacco user Tobacco use type: Cigarette Cigarette Packs Per Day: 1 Cigarettes Per Day: 20.0 Years Smoked: 22 Smoked in Last 30 Days: Yes Patient Interested in Nicotine Replacement: No Patient Given Instructions on How to Stop Smoking: No (refused) Second Hand Smoke Exposure: Yes Use of substances other than those prescribed or required for medical reasons: Unknown Substance Use Type: Former Substance User Advance Directives: No Advance Directives Information Provided: No Do you have thoughts of harming others: None Do you have a plan to hurt others: No Plan Recently lost weight without trying: No Nutrition Risks: No Nutritional Risk Patient : No service: No Current occupational status: unemployed Meds Allergies Allergy/AdvReac Type Severity Reaction Status Date / Time codeine [CODEINE] AdvReac Mild RASH Verified 03/31/23 21:38 oxycodone [From OXYCONTIN] AdvReac Mild RASH Verified 03/31/23 21:38 Active Medications: Current Medications Acetazolamide (Acetazolamide Sodium 500 Mg Vial) 250 mg IVPUSH BID [facility] Albuterol/Ipratropium (Albuterol/Iprat 2.5/0.5mg 3 Ml Ampul.Neb) 3 ml INHALE RQ6H WHILE AWAKE [facility] Last Admin: 04/01/23 08:27 Dose: Not Given Haloperidol Lactate (Haloperidol Lactate 5 Mg/Ml Vial) 2 mg IVPUSH Q4H PRN PRN Reason: agitation Last Admin: 04/01/23 04:22 Dose: 2 mg Heparin Sodium (Porcine) (Heparin Sodium,Porcine 5,000 Unit/Ml Vial) 5,000 unit SUBCUT Q8H [facility] Last Admin: 04/01/23 03:23 Dose: 5,000 unit Insulin Human Lispro (Insulin Lispro 100 Unit/Ml 3 Ml Vial) 0 unit SUBCUT Q6H [facility]; Protocol Last Admin: 04/01/23 08:55 Dose: Not Given Lamotrigine (Lamotrigine 100 Mg Tablet) 100 mg PO BID [facility] Prednisone (Prednisone 20 Mg Tablet) 40 mg PO DAILY [facility] Home Medications Medication Instructions Recorded Confirmed Last Taken Type sertraline 100 mg tablet 150 mg PO DAILY 02/21/20 04/01/23 Unknown History prazosin 1 mg capsule 2 mg PO BEDTIME 02/22/20 04/01/23 Unknown History albuterol sulfate 2.5 mg/3 mL 3 ml inhalation QID PRN Wheezing 11/14/21 04/01/23 Unknown History (0.083 %) solution for nebulization famotidine 20 mg tablet 1 tab PO BID 11/14/21 04/01/23 Unknown History fluticasone 100 mcg-salmeterol 50 1 puff inhalation BID 11/14/21 04/01/23 Unknown History mcg/dose blistr powdr for inhalation (Advair Diskus) fluticasone propionate 50 1 spray intranasal BID 11/14/21 04/01/23 Unknown History mcg/actuation nasal spray,suspension lisinopril 40 mg tablet 1 tab PO DAILY 11/14/21 04/01/23 Unknown History prazosin 1 mg capsule 1 mg PO DAILY 11/14/21 04/01/23 Unknown History tiotropium bromide 18 mcg capsule 1 cap inhalation DAILY 11/14/21 04/01/23 Unknown History with inhalation device (Spiriva with HandiHaler) buprenorphine 4 mg-naloxone 1 mg 1 strip sublingual DAILY 02/03/22 04/01/23 Unknown History sublingual film (Suboxone) docusate sodium 100 mg tablet 100 mg PO BID PRN Constipation 02/03/22 04/01/23 Unknown History ibuprofen 800 mg tablet 1 tab PO Q12H PRN Pain 02/03/22 04/01/23 Unknown History ondansetron 4 mg disintegrating 8 mg PO Q8H PRN Nausea 02/03/22 04/01/23 Unknown History tablet roflumilast 500 mcg tablet 500 mcg PO DAILY 02/03/22 04/01/23 Unknown History trazodone 150 mg tablet 300 mg PO BEDTIME 02/03/22 04/01/23 Unknown History atorvastatin 20 mg tablet 20 mg PO BEDTIME 02/26/23 04/01/23 Unknown History buspirone 10 mg tablet 10 mg PO TID 02/26/23 04/01/23 Unknown History haloperidol 1 mg tablet 2 mg PO BEDTIME 02/26/23 04/01/23 Unknown History hydralazine 25 mg tablet 25 mg PO TID 02/26/23 04/01/23 Unknown History torsemide 20 mg tablet 20 mg PO DAILY 02/26/23 04/01/23 Unknown History acetaminophen 500 mg tablet 1,000 mg PO Q6H PRN Pain 04/01/23 04/01/23 Unknown History albuterol sulfate 90 mcg/actuation 2 puff inhalation Q6H PRN 04/01/23 04/01/23 Unknown History aerosol inhaler (Ventolin HFA) Shortness Of Breath Or Wheezing amlodipine 10 mg tablet 10 mg PO DAILY 04/01/23 04/01/23 Unknown History cetirizine 10 mg tablet 10 mg PO DAILY 04/01/23 04/01/23 Unknown History gabapentin 100 mg capsule 200 mg PO QID 04/01/23 04/01/23 Unknown History latanoprost 0.005 % eye drops 1 drp ophthalmic (eye) BEDTIME 04/01/23 04/01/23 Unknown History metformin 1,000 mg tablet 1,000 mg PO BID 04/01/23 04/01/23 Unknown History miconazole nitrate 2 % topical 1 appl topical DAILY PRN Rash 04/01/23 04/01/23 Unknown History cream montelukast 10 mg tablet 10 mg PO DAILY 04/01/23 04/01/23 Unknown History nystatin 100,000 unit/gram topical 1 appl topical DAILY PRN Rash 04/01/23 04/01/23 Unknown History powder Physical Exam 2 Vital Signs: Vital Signs: Last Vital Signs Temp 97.6 F 04/01/23 07:00 Pulse 101 H 04/01/23 09:00 Resp 24 H 04/01/23 09:00 BP 135/58 L 04/01/23 09:00 Pulse Ox 90 L 04/01/23 09:00 O2 Del Method Nasal Cannula 04/01/23 09:00 O2 Flow Rate 3 04/01/23 09:00 FiO2 40 04/01/23 06:00 Oxygen Flow Rate 6 03/31/23 21:35 BMI result Body Mass Index 38.9 Const: General: no acute distress, alert and awake Eyes: Sclerae: sclerae normal EOM: EOMs intact bilaterally Neck: Neck: Yes no lymphadenopathy, Yes trachea midline and Yes supple Resp: Effort & Inspection: normal respiratory effort and no respiratory distress Auscultation: clear to auscultation bilaterally Cardio: Rate: tachycardic Rhythm: regular rhythm Heart sounds: no gallops, no murmurs and no rubs GI: Palpation (GI): Soft to palpation and Other GI palpation findings present ( Nontender) Auscultation: normal bowel sounds Extrem: General: Yes no pedal edema, No clubbing and No cyanosis Results Labs 04/01/23 05:12 04/01/23 05:12 Labs: Laboratory Results - last 24 hr 03/31/23 03/31/23 04/01/23 22:21 22:25 02:01 MCV 89.7 MCH 28.5 MCHC 31.8 RDW 14.3 Plt Count 163 D MPV 9.8 Immature Gran % (Auto) 0.6 H Neut % (Auto) 78.7 H Lymph % (Auto) 11.[address] [place] % (Auto) 7.6 Eos % (Auto) 1.5 Baso % (Auto) 0.5 Lymph # (Auto) 1.4 [place] # (Auto) 0.9 Eos # (Auto) 0.2 Baso # (Auto) 0.1 Abs Immat Gran (auto) 0.07 H Absolute Neuts (auto) 9.7 H Absolute Nucleated RBC 0.000 Nucleated RBC % (auto) 0.0 O2 Saturation ABG pH at Pt Temp ABG pCO2 at Pt Temp ABG pO2 at Pt Temp ABG HCO3 ABG Base Excess (Actual) VBG pH 7.29 L 7.26 L VBG pCO2 82 88 VBG pO2 57 54 VBG HCO3 39 H 40 H VBG O2 Saturation 84.0 81.0 VBG Base Excess 8.8 8.8 Anion Gap 13 Estim Creat Clear Calc 101.2 Estimated GFR > 60 POC Glucose Random Glucose 167 H Lactic Acid 1.0 Calcium 9.6 Phosphorus Magnesium B-Natriuretic Peptide 13 Albumin Urine Color Urine Appearance Urine pH Ur Specific [place] Urine Protein Urine Glucose (UA) Urine Ketones Urine Blood Urine Nitrite Ur Leukocyte Esterase Urine RBC Urine WBC Ur Squamous Epith Cells Urine Bacteria Hyaline Casts COVID-19 (NACHO) COVID-19 Clin Com Influenza Type A (RADHA) Influenza Type B (RADHA) Influenza A & B Note 04/01/23 04/01/23 04/01/23 02:53 03:28 03:59 MCV MCH MCHC RDW Plt Count MPV Immature Gran % (Auto) Neut % (Auto) Lymph % (Auto) [place] % (Auto) Eos % (Auto) Baso % (Auto) Lymph # (Auto) [place] # (Auto) Eos # (Auto) Baso # (Auto) Abs Immat Gran (auto) Absolute Neuts (auto) Absolute Nucleated RBC Nucleated RBC % (auto) O2 Saturation 90.0 ABG pH at Pt Temp 7.28 L ABG pCO2 at Pt Temp 77 H* ABG pO2 at Pt Temp 67 L ABG HCO3 37 H ABG Base Excess (Actual) 6.7 VBG pH VBG pCO2 VBG pO2 VBG HCO3 VBG O2 Saturation VBG Base Excess Anion Gap Estim Creat Clear Calc Estimated GFR POC Glucose 233 H Random Glucose Lactic Acid Calcium Phosphorus Magnesium B-Natriuretic Peptide Albumin Urine Color Dark Yellow Urine Appearance Clear Urine pH 6.5 Ur Specific [place] 1.025 Urine Protein 300 (3+) H Urine Glucose (UA) Negative Urine Ketones Negative Urine Blood Negative Urine Nitrite Negative Ur Leukocyte Esterase Negative Urine RBC 0-2 Urine WBC 0-5 Ur Squamous Epith Cells 0-2 Urine Bacteria 1+ Hyaline Casts 3-5 COVID-19 (NACHO) Negative COVID-19 Clin Com See Note Influenza Type A (RADHA) Negative Influenza Type B (RADHA) Negative Influenza A & B Note See Note 04/01/23 04/01/23 05:12 07:46 MCV 92.5 MCH 28.7 MCHC 31.0 RDW 14.3 Plt Count 132 L MPV 9.8 Immature Gran % (Auto) 1.0 H Neut % (Auto) 89.2 H Lymph % (Auto) 7.[address] [place] % (Auto) 1.9 L Eos % (Auto) 0.2 Baso % (Auto) 0.2 Lymph # (Auto) 0.[address] [place] # (Auto) 0.2 Eos # (Auto) 0.0 Baso # (Auto) 0.0 Abs Immat Gran (auto) 0.09 H Absolute Neuts (auto) 7.7 Absolute Nucleated RBC 0.000 Nucleated RBC % (auto) 0.0 O2 Saturation ABG pH at Pt Temp ABG pCO2 at Pt Temp ABG pO2 at Pt Temp ABG HCO3 ABG Base Excess (Actual) VBG pH 7.34 VBG pCO2 61 VBG pO2 56 VBG HCO3 34 H VBG O2 Saturation 86.0 VBG Base Excess 5.9 Anion Gap 17 Estim Creat Clear Calc 91.5 Estimated GFR > 60 POC Glucose 199 H Random Glucose 220 H Lactic Acid Calcium 8.8 D Phosphorus 3.7 Magnesium 1.4 L* B-Natriuretic Peptide Albumin 3.9 Urine Color Urine Appearance Urine pH Ur Specific [place] Urine Protein Urine Glucose (UA) Urine Ketones Urine Blood Urine Nitrite Ur Leukocyte Esterase Urine RBC Urine WBC Ur Squamous Epith Cells Urine Bacteria Hyaline Casts COVID-19 (NACHO) COVID-19 Clin Com Influenza Type A (RADHA) Influenza Type B (RADHA) Influenza A & B Note Imaging Radiologist's Impressions: Impressions Chest X-Ray 03/31/23 22:09 IMPRESSION: 1. Redemonstration of bronchial wall thickening throughout the bilateral lung davis reflecting infectious/inflammatory etiology in the appropriate clinical setting. 2. Limited evaluation the bilateral lung apices. 3. Bilateral low lung volumes. Assessment and Plan (1) COPD exacerbation: Status: Acute (2) Diabetes mellitus: Status: Acute Plan Assessment: 53-year-old lady with underlying COPD admitted with COPD exacerbation briefly requiring BiPAP support, now titrated off. Plan: Neuro: No acute issues. Cardiac: No acute issues. Underlying diastolic dysfunction on torsemide, now switched to acetazolamide, to restart torsemide at discharge. Pulmonary: Acute on chronic hypoxic hypercapnic respiratory failure secondary to COPD exacerbation briefly requiring BiPAP support, now titrated off. Continue to taper systemic glucocorticoids. Continue nebulized bronchodilators. Renal: No acute issues. Endo: No acute issues. GI: No acute issues. ID: No acute issues Heme/Onc: No acute issues. Psych: No acute issues. Underlying bipolar and ?Schizophrenia. Restarted Lamictal and p.r.n. Haldol Miscellaneous: No acute issues. Prophylaxis: Heparin Diet: Regular Critical care time spent: 30 minutes
[2023-04-01 10:52] LABS: Glucose, Whole Blood 208 mg/dL (60-115)
[2023-04-01] MEDS: acetaZOLAMIDE sodium 500 MG VIAL 250 MG IVPUSH ×2 (12:18→21:53)
[2023-04-01] MEDS: lamoTRIgine 100 MG TABLET PO ×2 (12:19→21:53)
[2023-04-01] MEDS: Buprenorphine/Naloxone 4/1 mg FILM 1 FILM SUBLINGUAL (13:28)
[2023-04-01 20:28] LABS: Glucose, Whole Blood 137 mg/dL (60-115)
[2023-04-01] MEDS: busPIRone HCl 10 MG TABLET PO (21:52)
[2023-04-01] MEDS: Prazosin HCL 1 MG CAPSULE 2 MG PO (21:52)
[2023-04-01] MEDS: HaloperidoL 1 MG TABLET 2 MG PO (21:53)
[2023-04-01] MEDS: Acetaminophen 325 MG TABLET 650 MG PO (23:37)
[2023-04-01] MEDS: traZODone HCL 100 MG TABLET 300 MG PO (23:37)
[2023-04-02] VITALS (8 sets, daily range): BP systolic 119–154; BP diastolic 60–86; PULSE 79–98; RESP 16–20; TEMP 36–37.1; O2SAT 87–93
[2023-04-02 06:58] LABS: Venous Blood Gas Refer to POC result
[2023-04-02 06:59] LABS: VBG Base Excess 6.5 mmol/L; VBG HCO3 35 mmol/L (22-26); VBG pCO2 68 mmHg; VBG pH 7.31 (7.32-7.43); VBG pO2 70 mmHg
[2023-04-02 07:39] LABS: Glucose, Whole Blood 136 mg/dL (60-115)
[2023-04-02 07:56] LABS: MANUAL DIFF FLAG NO
[2023-04-02 08:03] LABS: Basophils Percent Auto 0.4 % (0-2); Eosinophils Absolute Auto 0.1 X10*3/uL (0.0-0.4); Eosinophils Percent Auto 1.2 % (0-4); Hematocrit 48.4 % (37.0-47.0); Hemoglobin 14.9 g/dl (12.0-16.0); Imm Gran Abs Auto 0.05 X10*3/uL (0.00-0.03); Imm Gran Pct Auto 0.7 % (0.0-0.4); Lymphocytes Absolute Auto 1.4 X10*3/uL (1.2-4.9); Lymphocytes Percent Auto 19.5 % (20-40); Mean Corpuscular HGB Conc 30.8 g/dl (31.0-35.0); Mean Corpuscular Hemoglobin 28.4 pg (27.0-33.0); Mean Corpuscular Volume 92.4 fL (80.0-98.0); Mean Platelet Volume 10.4 fL (9.4-12.3); Monocytes Percent Auto 13.9 % (2-11); Neutrophils Absolute Auto 4.7 x10*3/uL (2.0-8.3); Neutrophils Percent Auto 64.3 % (45-73); Platelet Count 134 X10*3/uL (160-400); Red Blood Count 5.24 X10*6/uL (4.20-5.50); Red Cell Distribution Width 14.5 % (11.0-16.0); White Blood Count 7.4 X10*3/uL (4.8-10.8)
[2023-04-02 08:16] LABS: Anion Gap 12 (12-20); Blood Urea Nitrogen 11 mg/dL (9-16); Calcium 9.4 mg/dL (8.4-10.2); Carbon Dioxide 31 mmol/L (22-29); Chloride 103 mmol/L (96-108); Creatinine Clr Calc Pharmacy 121.6; Estimated Glomerular Filt Rate > 60; Glucose Random 131 mg/dL (60-115); Magnesium 2.2 mg/dL (1.6-2.6); Phosphorus 3.4 mg/dL (2.7-4.5); Potassium 4.1 mmol/L (3.3-5.1); Sodium 142 mmol/L (135-145)
[2023-04-02] MEDS: lamoTRIgine 100 MG TABLET PO ×2 (08:34→20:48)
[2023-04-02] MEDS: busPIRone HCl 10 MG TABLET PO ×3 (08:34→20:48)
[2023-04-02] MEDS: acetaZOLAMIDE sodium 500 MG VIAL 250 MG IVPUSH (08:34)
[2023-04-02] MEDS: Buprenorphine/Naloxone 4/1 mg FILM 1 FILM SUBLINGUAL (08:34)
[2023-04-02] MEDS: predniSONE 20 MG TABLET 40 MG PO (08:34)
[2023-04-02] MEDS: Roflumilast 500 MCG TABLET PO (08:34)
[2023-04-02] MEDS: Sertraline HCL 50 MG TABLET 150 MG PO (08:34)
[2023-04-02] MEDS: Acetaminophen 325 MG TABLET 650 MG PO ×2 (08:35→20:48)
--- NOTE | 2023-04-02 08:59 | MHC.CM.PN ---
Pt lives in a [facility], is self-care (has a walker but doesn't use it). Pts plan is to return to the prison when medically cleared, prison staff will transport her home. Pts states her daughter is HCP, copy requested. PCP: Adriana CESPEDES
[2023-04-02 11:29] LABS: Glucose, Whole Blood 156 mg/dL (60-115)
[2023-04-02] MEDS: Heparin Sodium,Porcine 5,000 UNIT/ML VIAL 5000 UNIT SUBCUT ×2 (11:47→18:36)
--- NOTE | 2023-04-02 13:05 | HO.PM.IMPN ---
Subjective Subjective Date of Service: 04/02/23 Interval History: copd excerebation Review of Systems sob with minimum excersion denies any chest pain or fever or chills Physical Exam Vital Signs: Vital Signs: Last Vital Signs Temp 97.1 F 04/02/23 11:20 Pulse 79 04/02/23 11:20 Resp 16 04/02/23 11:20 BP 154/77 H 04/02/23 11:20 Pulse Ox 90 L 04/02/23 11:20 O2 Del Method Nasal Cannula 04/02/23 11:20 O2 Flow Rate 3 04/02/23 11:20 FiO2 40 04/01/23 06:00 Oxygen Flow Rate 6 03/31/23 21:35 BMI result Body Mass Index 38.9 Appearance: Alert.? Oriented X3.?sob cvs: rrr, [id number] , no murmur res: air entry diminshed , b/l wheezing abd: no rebound or guarding ,nt, bs present. ext pulses present , no cyanosis . neuro: axo3 , nonfocal. Objective Data Active Medications Acetaminophen (Acetaminophen 325 Mg Tablet) 650 mg PO Q4H PRN PRN Reason: Pain, Mild (Pain Scale 1-3) Last Admin: 04/02/23 08:35 Dose: 650 mg Documented By: ARJUN Acetazolamide (Acetazolamide Sodium 500 Mg Vial) 250 mg IVPUSH BID [facility] Last Admin: 04/02/23 08:34 Dose: 250 mg Documented By: ARJUN Albuterol/Ipratropium (Albuterol/Iprat 2.5/0.5mg 3 Ml Ampul.Neb) 3 ml INHALE RQ6H WHILE AWAKE [facility] Last Admin: 04/02/23 07:48 Dose: Not Given Documented By: ROSALIE Non-Admin Reason: Patient Refused Buprenorphine/Naloxone (Buprenorphine/Naloxone 4/1 Mg Film) 1 film SUBLINGUAL DAILY [facility] Last Admin: 04/02/23 08:34 Dose: 1 film Documented By: ARJUN Buspirone HCl (Buspirone Hcl 10 Mg Tablet) 10 mg PO TID [facility] Last Admin: 04/02/23 08:34 Dose: 10 mg Documented By: ARJUN Haloperidol (Haloperidol 1 Mg Tablet) 2 mg PO BEDTIME [facility] Last Admin: 04/01/23 21:53 Dose: 2 mg Documented By: ELIZABETH Haloperidol Lactate (Haloperidol Lactate 5 Mg/Ml Vial) 2 mg IVPUSH Q4H PRN PRN Reason: agitation Last Admin: 04/01/23 04:22 Dose: 2 mg Documented By: GRACE Heparin Sodium (Porcine) (Heparin Sodium,Porcine 5,000 Unit/Ml Vial) 5,000 unit SUBCUT Q8H [facility] Last Admin: 04/02/23 11:47 Dose: 5,000 unit Documented By: ALCIDES Insulin Human Lispro (Insulin Lispro 100 Unit/Ml 3 Ml Vial) 0 unit SUBCUT QIDACHS [facility]; Protocol Last Admin: 04/02/23 11:44 Dose: Not Given Documented By: ALCIDES Non-Admin Reason: Patient Refused Lamotrigine (Lamotrigine 100 Mg Tablet) 100 mg PO BID [facility] Last Admin: 04/02/23 08:34 Dose: 100 mg Documented By: ARJUN Prazosin HCl (Prazosin Hcl 1 Mg Capsule) 2 mg PO BEDTIME [facility]; Protocol Last Admin: 04/01/23 21:52 Dose: 2 mg Documented By: ELIZABETH Prednisone (Prednisone 20 Mg Tablet) 40 mg PO DAILY [facility] Last Admin: 04/02/23 08:34 Dose: 40 mg Documented By: ARJUN Roflumilast (Roflumilast 500 Mcg Tablet) 500 mcg PO DAILY [facility] Last Admin: 04/02/23 08:34 Dose: 500 mcg Documented By: ARJUN Sertraline HCl (Sertraline Hcl 50 Mg Tablet) 150 mg PO DAILY [facility] Last Admin: 04/02/23 08:34 Dose: 150 mg Documented By: ARJUN Tiotropium [place] (Tiotropium [place] 2.5 Mcg 1 Puff/2.5 Mcg Mist.Inhal) 2 puff INHALE DAILY [facility] Last Admin: 04/02/23 07:48 Dose: Not Given Documented By: ROSALIE Non-Admin Reason: Patient Refused Labs 04/02/23 06:50 04/02/23 06:50 Labs: Laboratory Results - last 24 hr 04/01/23 04/02/23 04/02/23 20:24 06:50 06:52 MCV 92.4 MCH 28.4 MCHC 30.8 L RDW 14.5 Plt Count 134 L MPV 10.4 Immature Gran % (Auto) 0.7 H Neut % (Auto) 64.3 Lymph % (Auto) 19.5 L [place] % (Auto) 13.9 H Eos % (Auto) 1.2 Baso % (Auto) 0.4 Lymph # (Auto) 1.4 [place] # (Auto) 1.0 Eos # (Auto) 0.1 Baso # (Auto) 0.0 Abs Immat Gran (auto) 0.05 H Absolute Neuts (auto) 4.7 Absolute Nucleated RBC 0.000 Nucleated RBC % (auto) 0.0 VBG pH 7.31 L VBG pCO2 68 VBG pO2 70 VBG HCO3 35 H VBG O2 Saturation 93.0 VBG Base Excess 6.5 Anion Gap 12 Estim Creat Clear Calc 121.6 Estimated GFR > 60 POC Glucose 137 H Random Glucose 131 H Calcium 9.4 D Phosphorus 3.4 Magnesium 2.2 Albumin 4.0 04/02/23 04/02/23 07:32 11:19 MCV MCH MCHC RDW Plt Count MPV Immature Gran % (Auto) Neut % (Auto) Lymph % (Auto) [place] % (Auto) Eos % (Auto) Baso % (Auto) Lymph # (Auto) [place] # (Auto) Eos # (Auto) Baso # (Auto) Abs Immat Gran (auto) Absolute Neuts (auto) Absolute Nucleated RBC Nucleated RBC % (auto) VBG pH VBG pCO2 VBG pO2 VBG HCO3 VBG O2 Saturation VBG Base Excess Anion Gap Estim Creat Clear Calc Estimated GFR POC Glucose 136 H 156 H Random Glucose Calcium Phosphorus Magnesium Albumin Microbiology Microbiology Results: Microbiology 03/31/23 23:51 Blood Culture - Preliminary Blood - Venous No growth after 24 hours. 03/31/23 23:11 Blood Culture - Preliminary Blood - Venous No growth after 24 hours. Assessment and Plan (1) COPD exacerbation: Status: Acute (2) Acute respiratory failure: Status: Acute Plan as per ICU documentation: 53-year-old lady, active 30 pack-year smoker, with underlying COPD, hypertension, ?bipolar disorder, diabetes mellitus, ?diastolic heart failure followed by Dr. Miramontes at [facility], admitted on 04/01/2023 with acute hypoxic and hypercapnic respiratory failure initially briefly requiring BiPAP, now titrated off. She was treated with systemic glucocorticoids, nebulized bronchodilators, and IV acetazolamide with significant improvement. Patient has been titrated off BiPAP. sent to floor on 04/02. Acute hypoxemic respiratory failure secondary to acute exacerbation of COPD: sob with monium excerion,has b/l wheezing, need oxygen continue iv steroid, bronchodilatos by neb,taper oxygen,dimox. [id number] diabetes mellitus. Initiating Accu-Cheks with sliding scale insulin, hold metformin( may start upon discharge). Essential hypertension: Continue home antihypertensives Mood disorder: Continue home mood stabilizers Obesity: Counseled regarding diet and exercise DVT prophylaxis: Lovenox Full code need for inpt: Acute hypoxemic respiratory failure secondary to acute exacerbation of COPD- need IV start, nebs, oxygen support, respiratory status is not optimally yet. Quality Stroke Does the patient have a stroke diagnosis?: No VTE Prior VTE?: No VTE Risk Level:: Medical - moderate - high VTE Device Contraindication: Treatment Not Indicated VTE Drug Contraindication: N/A - Med Ordered
[2023-04-02] MEDS: Albuterol/Iprat 2.5/0.5MG 3 ML AMPUL.NEB INHALE (14:13)
[2023-04-02] MEDS: Loratadine 10 MG TABLET PO (14:51)
[2023-04-02] MEDS: hydrALAZINE HCl 25 MG TABLET PO ×2 (14:51→20:48)
[2023-04-02] MEDS: Montelukast Sodium 10 MG TABLET PO (14:51)
[2023-04-02] MEDS: Famotidine 20 MG TABLET PO ×2 (14:51→20:48)
[2023-04-02] MEDS: Fluticasone Propionate Nasal 16 GM SPRAY 1 SPRAY NOSTRIL-B (14:53)
[2023-04-02 16:42] LABS: Glucose, Whole Blood 181 mg/dL (60-115)
[2023-04-02] MEDS: Gabapentin 100 MG CAPSULE 200 MG PO ×2 (16:53→20:48)
[2023-04-02] MEDS: HaloperidoL 1 MG TABLET 2 MG PO (20:48)
[2023-04-02] MEDS: Atorvastatin Calcium 20 MG TABLET PO (20:48)
[2023-04-02] MEDS: Prazosin HCL 1 MG CAPSULE 2 MG PO (20:48)
[2023-04-02] MEDS: traZODone HCL 100 MG TABLET 300 MG PO (20:55)
[2023-04-02 21:08] LABS: Glucose, Whole Blood 117 mg/dL (60-115)
[2023-04-03] VITALS (10 sets, daily range): BP systolic 123–142; BP diastolic 61–80; PULSE 63–124; RESP 16–20; TEMP 36.1–36.4; O2SAT 71–95
[2023-04-03 07:21] LABS: Glucose, Whole Blood 135 mg/dL (60-115)
[2023-04-03] MEDS: hydrALAZINE HCl 25 MG TABLET PO ×3 (07:36→21:03)
[2023-04-03] MEDS: predniSONE 20 MG TABLET 40 MG PO (07:36)
[2023-04-03] MEDS: acetaZOLAMIDE sodium 500 MG VIAL 250 MG IVPUSH (07:36)
[2023-04-03] MEDS: Famotidine 20 MG TABLET PO ×2 (07:37→21:02)
[2023-04-03] MEDS: Roflumilast 500 MCG TABLET PO (07:37)
[2023-04-03] MEDS: Montelukast Sodium 10 MG TABLET PO (07:37)
[2023-04-03] MEDS: Gabapentin 100 MG CAPSULE 200 MG PO ×4 (07:37→21:03)
[2023-04-03] MEDS: lamoTRIgine 100 MG TABLET PO ×2 (07:37→21:02)
[2023-04-03] MEDS: Acetaminophen 325 MG TABLET 650 MG PO (07:38)
[2023-04-03] MEDS: busPIRone HCl 10 MG TABLET PO ×3 (07:38→21:02)
[2023-04-03] MEDS: lisinopriL 40 MG TABLET PO (07:38)
[2023-04-03] MEDS: Sertraline HCL 50 MG TABLET 150 MG PO (07:38)
[2023-04-03] MEDS: Prazosin HCL 1 MG CAPSULE PO (07:39)
[2023-04-03] MEDS: Fluticasone Propionate Nasal 16 GM SPRAY 1 SPRAY NOSTRIL-B (07:39)
[2023-04-03] MEDS: Loratadine 10 MG TABLET PO (07:39)
[2023-04-03] MEDS: Buprenorphine/Naloxone 4/1 mg FILM 1 FILM SUBLINGUAL (07:39)
[2023-04-03] MEDS: Albuterol/Iprat 2.5/0.5MG 3 ML AMPUL.NEB INHALE ×3 (07:56→19:07)
[2023-04-03] MEDS: Tiotropium Bromide 2.5 mcg 1 PUFF/2.5 MCG MIST.INHAL 2 PUFF INHALE (07:56)
--- NOTE | 2023-04-03 10:16 | MHC.CM.PN ---
Per respiratory therapy, pt is requiring 6L O2 at rest, and 15L O2 with ambulation. This CM called the retirement and spoke with the public affairs manager Claritza at [phone], and per Claritza they cannot accept her back there with oxygen, their retirement does not accommodate medical needs such as oxygen. Hospitalist updated. to order PT eval to assist with D/C disposition.
[2023-04-03 11:08] LABS: Glucose, Whole Blood 218 mg/dL (60-115)
--- NOTE | 2023-04-03 12:12 | MHC.CM.PN ---
PT is recommending pulmonary rehab, this CM met with pt to discuss, pt agreeable to referral for [facility]. Referral placed in [facility].
[2023-04-03] MEDS: Heparin Sodium,Porcine 5,000 UNIT/ML VIAL 5000 UNIT SUBCUT ×2 (12:23→21:01)
--- NOTE | 2023-04-03 12:29 | HO.PM.IMPN ---
Subjective Subjective Date of Service: 04/04/23 Interval History: f/u on acute hypoxic resp failure pt is still very hypoxic and not able to wean off Physical Exam Vital Signs: Vital Signs: Last Vital Signs Temp 97.6 F 04/03/23 10:57 Pulse 94 04/03/23 10:57 Resp 20 04/03/23 10:57 BP 123/61 04/03/23 10:57 Pulse Ox 91 L 04/03/23 10:57 O2 Del Method Nasal Cannula 04/03/23 10:57 O2 Flow Rate 5 04/03/23 10:57 FiO2 40 04/01/23 06:00 Oxygen Flow Rate 6 03/31/23 21:35 BMI result Body Mass Index 38.9 Objective Data Active Medications Acetaminophen (Acetaminophen 325 Mg Tablet) 650 mg PO Q4H PRN PRN Reason: Pain, Mild (Pain Scale 1-3) Last Admin: 04/03/23 07:38 Dose: 650 mg Documented By: ARJUN Acetazolamide (Acetazolamide Sodium 500 Mg Vial) 250 mg IVPUSH DAILY [facility] Last Admin: 04/03/23 07:36 Dose: 250 mg Documented By: ARJUN Albuterol/Ipratropium (Albuterol/Iprat 2.5/0.5mg 3 Ml Ampul.Neb) 3 ml INHALE RQ6H WHILE AWAKE [facility] Last Admin: 04/03/23 07:56 Dose: 3 ml Documented By: SHANELL Atorvastatin Calcium (Atorvastatin Calcium 20 Mg Tablet) 20 mg PO BEDTIME [facility] Last Admin: 04/02/23 20:48 Dose: 20 mg Documented By: MARCELLA Buprenorphine/Naloxone (Buprenorphine/Naloxone 4/1 Mg Film) 1 film SUBLINGUAL DAILY [facility] Last Admin: 04/03/23 07:39 Dose: 1 film Documented By: ARJUN Buspirone HCl (Buspirone Hcl 10 Mg Tablet) 10 mg PO TID [facility] Last Admin: 04/03/23 07:38 Dose: 10 mg Documented By: ARJUN Docusate Sodium (Docusate Sodium 100 Mg Capsule) 100 mg PO BID PRN PRN Reason: Constipation Famotidine (Famotidine 20 Mg Tablet) 20 mg PO BID [facility] Last Admin: 04/03/23 07:37 Dose: 20 mg Documented By: ARJUN Fluticasone Propionate (Fluticasone Propionate Nasal 16 Gm [place]) 1 spray NOSTRIL-B BID [facility] Last Admin: 04/03/23 07:39 Dose: 1 spray Documented By: ARJUN Gabapentin (Gabapentin 100 Mg Capsule) 200 mg PO QID [facility] Last Admin: 04/03/23 12:23 Dose: 200 mg Documented By: ALCIDES Haloperidol (Haloperidol 1 Mg Tablet) 2 mg PO BEDTIME [facility] Last Admin: 04/02/23 20:48 Dose: 2 mg Documented By: MARCELLA Haloperidol Lactate (Haloperidol Lactate 5 Mg/Ml Vial) 2 mg IVPUSH Q4H PRN PRN Reason: agitation Last Admin: 04/01/23 04:22 Dose: 2 mg Documented By: GRACE Heparin Sodium (Porcine) (Heparin Sodium,Porcine 5,000 Unit/Ml Vial) 5,000 unit SUBCUT Q8H [facility] Last Admin: 04/03/23 12:23 Dose: 5,000 unit Documented By: ALCIDES Hydralazine HCl (Hydralazine Hcl 25 Mg Tablet) 25 mg PO TID [facility]; Protocol Last Admin: 04/03/23 07:36 Dose: 25 mg Documented By: ARJUN Insulin Human Lispro (Insulin Lispro 100 Unit/Ml 3 Ml Vial) 0 unit SUBCUT QIDACHS [facility]; Protocol Last Admin: 04/03/23 12:23 Dose: Not Given Documented By: ALCIDES Non-Admin Reason: Patient Refused Lamotrigine (Lamotrigine 100 Mg Tablet) 100 mg PO BID [facility] Last Admin: 04/03/23 07:37 Dose: 100 mg Documented By: ARJUN Latanoprost (Latanoprost 0.005 % Ophth Francine 2.5 Ml Drops) 1 drop EYE-BOTH BEDTIME [facility] Last Admin: 04/02/23 23:00 Dose: Not Given Documented By: MARCELLA Non-Admin Reason: Patient Refused Lisinopril (Lisinopril 40 Mg Tablet) 40 mg PO DAILY [facility]; Protocol Last Admin: 04/03/23 07:38 Dose: 40 mg Documented By: ARJUN Loratadine (Loratadine 10 Mg Tablet) 10 mg PO DAILY [facility] Last Admin: 04/03/23 07:39 Dose: 10 mg Documented By: ARJUN Miconazole Nitrate (Miconazole 2 % Extra Thick Cr 56.7 Gm Tube) 1 appl TOPICAL DAILY PRN; Protocol PRN Reason: Rash Montelukast Sodium (Montelukast Sodium 10 Mg Tablet) 10 mg PO DAILY [facility] Last Admin: 04/03/23 07:37 Dose: 10 mg Documented By: ARJUN Nystatin (Nystatin Powder 15 Gm Bottle) 1 appl TOPICAL DAILY PRN; Protocol PRN Reason: Rash Ondansetron HCl (Ondansetron Odt 4 Mg Tab.Rapdis) 8 mg TRANSLINGU Q8H PRN PRN Reason: Nausea Prazosin HCl (Prazosin Hcl 1 Mg Capsule) 2 mg PO BEDTIME [facility]; Protocol Last Admin: 04/02/23 20:48 Dose: 2 mg Documented By: MARCELLA Prazosin HCl (Prazosin Hcl 1 Mg Capsule) 1 mg PO DAILY [facility]; Protocol Last Admin: 04/03/23 07:39 Dose: 1 mg Documented By: ARJUN Prednisone (Prednisone 20 Mg Tablet) 40 mg PO DAILY [facility] Last Admin: 04/03/23 07:36 Dose: 40 mg Documented By: ARJUN Roflumilast (Roflumilast 500 Mcg Tablet) 500 mcg PO DAILY [facility] Last Admin: 04/03/23 07:37 Dose: 500 mcg Documented By: ARJUN Sertraline HCl (Sertraline Hcl 50 Mg Tablet) 150 mg PO DAILY [facility] Last Admin: 04/03/23 07:38 Dose: 150 mg Documented By: ARJUN Tiotropium [place] (Tiotropium [place] 2.5 Mcg 1 Puff/2.5 Mcg Mist.Inhal) 2 puff INHALE DAILY [facility] Last Admin: 04/03/23 07:56 Dose: 2 puff Documented By: SHANELL Torsemide (Torsemide 20 Mg Tablet) 20 mg PO DAILY [facility]; Protocol Last Admin: 04/03/23 07:38 Dose: Not Given Documented By: ARJUN Non-Admin Reason: Patient Refused Trazodone HCl (Trazodone Hcl 100 Mg Tablet) 300 mg PO BEDTIME [facility] Last Admin: 04/02/23 20:55 Dose: 300 mg Documented By: MARCELLA Labs 04/02/23 06:50 04/02/23 06:50 Labs: Laboratory Results - last 24 hr 04/02/23 04/02/23 04/03/23 16:37 21:03 07:18 POC Glucose 181 H 117 H 135 H 04/03/23 11:04 POC Glucose 218 H Microbiology Microbiology Results: Microbiology 03/31/23 23:51 Blood Culture - Preliminary Blood - Venous No growth after 48 hours. 03/31/23 23:11 Blood Culture - Preliminary Blood - Venous No growth after 48 hours. Assessment and Plan (1) COPD exacerbation: Status: Acute (2) Acute respiratory failure: Status: Acute Plan 53-year-old lady, active 30 pack-year smoker, with underlying COPD, hypertension, ?bipolar disorder, diabetes mellitus, ?diastolic heart failure followed by Dr. Miramontes at [facility], admitted on 04/01/2023 with acute hypoxic and hypercapnic respiratory failure initially briefly requiring BiPAP, now titrated off. She was treated with systemic glucocorticoids, nebulized bronchodilators, and IV acetazolamide with significant improvement. Patient has been titrated off BiPAP. sent to floor on 04/02. Acute hypoxemic respiratory failure secondary to acute exacerbation of COPD: remains highly hypoxic and requires high amount of O2 and cannot be safely discharged even by nasal canula at this time. continue bronchodilators, steroid,, and may benefit from pulmonary rehab, Smoking cessation has been discussed [id number] diabetes mellitus. Continue Essential hypertension: Continue home antihypertensives Mood disorder: Continue home mood stabilizers Obesity: Counseled regarding diet and exercise DVT prophylaxis: Lovenox Full code need for inpt: Acute hypoxemic respiratory failure secondary to acute exacerbation of COPD- need IV start, nebs, oxygen support, respiratory status is not optimally yet. Quality Stroke Does the patient have a stroke diagnosis?: No VTE Prior VTE?: No VTE Risk Level:: Medical - moderate - high VTE Device Contraindication: Treatment Not Indicated VTE Drug Contraindication: N/A - Med Ordered
--- NOTE | 2023-04-03 14:10 | P.CONCA_ITS ---
History of Present Illness History of Present Illness Date of Service: 04/03/23 Requesting physician: Felice Whitfield Chief complaint: hypoxic respiratory failure, bradycardia Narrative: 53-year-old female who is here for acute on chronic respiratory failure. She has background of COPD. It appears he had viral illness and then developed respiratory failure. We have been asked to assess her because on telemetry her heart rate has been fluctuating. She has normal heart rate and then suddenly becomes bradycardic and gets pauses as long as 4.2 seconds. She has no symptoms currently. In particular no dizziness or syncope. She appears to be quite sleepy looking and is saying that she has been taking significant naps which I think could be related to her underlying respiratory disease and may be she is a chronic retainer. She is denying any other symptoms. She is saying her breathing is improving. Currently not on any medications which would cause bradycardia. [facility] Past Medical History Medical History Class 2 obesity Hypoxia Diabetes mellitus Pulmonary nodule Chronic venous stasis dermatitis Hypertension COPD (chronic obstructive pulmonary disease) Asthma Surgical History Surgical History H/O neck surgery Social History Household Members: None Household Members Other:: [facility] Housing: Other Housing Other:: Prison Do you presently have visiting nurse or other home services: No Unable to assess alcohol history related to: Unknown Alcohol intake: unknown Patient Tobacco Use Status: Current everyday Tobacco user Tobacco use type: Cigarette Cigarette Packs Per Day: 1 Cigarettes Per Day: 20.0 Years Smoked: 22 Smoked in Last 30 Days: Yes Patient Interested in Nicotine Replacement: No Patient Given Instructions on How to Stop Smoking: No (refused) Second Hand Smoke Exposure: Yes Use of substances other than those prescribed or required for medical reasons: Unknown Substance Use Type: Former Substance User Currently Displaying Signs/Symptoms of Drug Intoxication Withdrawal: No Advance Directives: No Advance Directives Information Provided: No Do you have thoughts of harming others: None Do you have a plan to hurt others: No Plan Recently lost weight without trying: No Nutrition Risks: No Nutritional Risk Patient : No service: No Current occupational status: unemployed Meds Allergies Allergy/AdvReac Type Severity Reaction Status Date / Time codeine [CODEINE] AdvReac Mild RASH Verified 03/31/23 21:38 oxycodone [From OXYCONTIN] AdvReac Mild RASH Verified 03/31/23 21:38 Active Medications: Current Medications Acetaminophen (Acetaminophen 325 Mg Tablet) 650 mg PO Q4H PRN PRN Reason: Pain, Mild (Pain Scale 1-3) Last Admin: 04/03/23 07:38 Dose: 650 mg Acetazolamide (Acetazolamide Sodium 500 Mg Vial) 250 mg IVPUSH DAILY [facility] Last Admin: 04/03/23 07:36 Dose: 250 mg Albuterol/Ipratropium (Albuterol/Iprat 2.5/0.5mg 3 Ml Ampul.Neb) 3 ml INHALE RQ6H WHILE AWAKE [facility] Last Admin: 04/03/23 07:56 Dose: 3 ml Atorvastatin Calcium (Atorvastatin Calcium 20 Mg Tablet) 20 mg PO BEDTIME [facility] Last Admin: 04/02/23 20:48 Dose: 20 mg Buprenorphine/Naloxone (Buprenorphine/Naloxone 4/1 Mg Film) 1 film SUBLINGUAL DAILY [facility] Last Admin: 04/03/23 07:39 Dose: 1 film Buspirone HCl (Buspirone Hcl 10 Mg Tablet) 10 mg PO TID [facility] Last Admin: 04/03/23 07:38 Dose: 10 mg Docusate Sodium (Docusate Sodium 100 Mg Capsule) 100 mg PO BID PRN PRN Reason: Constipation Famotidine (Famotidine 20 Mg Tablet) 20 mg PO BID [facility] Last Admin: 04/03/23 07:37 Dose: 20 mg Fluticasone Propionate (Fluticasone Propionate Nasal 16 Gm [place]) 1 spray NOSTRIL-B BID [facility] Last Admin: 04/03/23 07:39 Dose: 1 spray Gabapentin (Gabapentin 100 Mg Capsule) 200 mg PO QID [facility] Last Admin: 04/03/23 12:23 Dose: 200 mg Haloperidol (Haloperidol 1 Mg Tablet) 2 mg PO BEDTIME [facility] Last Admin: 04/02/23 20:48 Dose: 2 mg Haloperidol Lactate (Haloperidol Lactate 5 Mg/Ml Vial) 2 mg IVPUSH Q4H PRN PRN Reason: agitation Last Admin: 04/01/23 04:22 Dose: 2 mg Heparin Sodium (Porcine) (Heparin Sodium,Porcine 5,000 Unit/Ml Vial) 5,000 unit SUBCUT Q8H [facility] Last Admin: 04/03/23 12:23 Dose: 5,000 unit Hydralazine HCl (Hydralazine Hcl 25 Mg Tablet) 25 mg PO TID [facility]; Protocol Last Admin: 04/03/23 07:36 Dose: 25 mg Insulin Human Lispro (Insulin Lispro 100 Unit/Ml 3 Ml Vial) 0 unit SUBCUT QIDACHS [facility]; Protocol Last Admin: 04/03/23 12:23 Dose: Not Given Lamotrigine (Lamotrigine 100 Mg Tablet) 100 mg PO BID [facility] Last Admin: 04/03/23 07:37 Dose: 100 mg Latanoprost (Latanoprost 0.005 % Ophth Francine 2.5 Ml Drops) 1 drop EYE-BOTH BEDTIME [facility] Last Admin: 04/02/23 23:00 Dose: Not Given Lisinopril (Lisinopril 40 Mg Tablet) 40 mg PO DAILY [facility]; Protocol Last Admin: 04/03/23 07:38 Dose: 40 mg Loratadine (Loratadine 10 Mg Tablet) 10 mg PO DAILY [facility] Last Admin: 04/03/23 07:39 Dose: 10 mg Miconazole Nitrate (Miconazole 2 % Extra Thick Cr 56.7 Gm Tube) 1 appl TOPICAL DAILY PRN; Protocol PRN Reason: Rash Montelukast Sodium (Montelukast Sodium 10 Mg Tablet) 10 mg PO DAILY [facility] Last Admin: 04/03/23 07:37 Dose: 10 mg Nystatin (Nystatin Powder 15 Gm Bottle) 1 appl TOPICAL DAILY PRN; Protocol PRN Reason: Rash Ondansetron HCl (Ondansetron Odt 4 Mg Tab.Rapdis) 8 mg TRANSLINGU Q8H PRN PRN Reason: Nausea Prazosin HCl (Prazosin Hcl 1 Mg Capsule) 2 mg PO BEDTIME [facility]; Protocol Last Admin: 04/02/23 20:48 Dose: 2 mg Prazosin HCl (Prazosin Hcl 1 Mg Capsule) 1 mg PO DAILY [facility]; Protocol Last Admin: 04/03/23 07:39 Dose: 1 mg Prednisone (Prednisone 20 Mg Tablet) 40 mg PO DAILY [facility] Last Admin: 04/03/23 07:36 Dose: 40 mg Roflumilast (Roflumilast 500 Mcg Tablet) 500 mcg PO DAILY [facility] Last Admin: 04/03/23 07:37 Dose: 500 mcg Sertraline HCl (Sertraline Hcl 50 Mg Tablet) 150 mg PO DAILY [facility] Last Admin: 04/03/23 07:38 Dose: 150 mg Tiotropium [place] (Tiotropium [place] 2.5 Mcg 1 Puff/2.5 Mcg Mist.Inhal) 2 puff INHALE DAILY [facility] Last Admin: 04/03/23 07:56 Dose: 2 puff Torsemide (Torsemide 20 Mg Tablet) 20 mg PO DAILY [facility]; Protocol Last Admin: 04/03/23 07:38 Dose: Not Given Trazodone HCl (Trazodone Hcl 100 Mg Tablet) 300 mg PO BEDTIME [facility] Last Admin: 04/02/23 20:55 Dose: 300 mg Home Medications Medication Instructions Recorded Confirmed Last Taken Type sertraline 100 mg tablet 150 mg PO DAILY 02/21/20 04/01/23 Unknown History prazosin 1 mg capsule 2 mg PO BEDTIME 02/22/20 04/01/23 Unknown History albuterol sulfate 2.5 mg/3 mL 3 ml inhalation QID PRN Wheezing 11/14/21 04/01/23 Unknown History (0.083 %) solution for nebulization famotidine 20 mg tablet 1 tab PO BID 11/14/21 04/01/23 Unknown History fluticasone 100 mcg-salmeterol 50 1 puff inhalation BID 11/14/21 04/01/23 Unknown History mcg/dose blistr powdr for inhalation (Advair Diskus) fluticasone propionate 50 1 spray intranasal BID 11/14/21 04/01/23 Unknown History mcg/actuation nasal spray,suspension lisinopril 40 mg tablet 1 tab PO DAILY 11/14/21 04/01/23 Unknown History prazosin 1 mg capsule 1 mg PO DAILY 11/14/21 04/01/23 Unknown History tiotropium bromide 18 mcg capsule 1 cap inhalation DAILY 11/14/21 04/01/23 Unknown History with inhalation device (Spiriva with HandiHaler) buprenorphine 4 mg-naloxone 1 mg 1 strip sublingual DAILY 02/03/22 04/01/23 Unknown History sublingual film (Suboxone) docusate sodium 100 mg tablet 100 mg PO BID PRN Constipation 02/03/22 04/01/23 Unknown History ibuprofen 800 mg tablet 1 tab PO Q12H PRN Pain 02/03/22 04/01/23 Unknown History ondansetron 4 mg disintegrating 8 mg PO Q8H PRN Nausea 02/03/22 04/01/23 Unknown History tablet roflumilast 500 mcg tablet 500 mcg PO DAILY 02/03/22 04/01/23 Unknown History trazodone 150 mg tablet 300 mg PO BEDTIME 02/03/22 04/01/23 Unknown History atorvastatin 20 mg tablet 20 mg PO BEDTIME 02/26/23 04/01/23 Unknown History buspirone 10 mg tablet 10 mg PO TID 02/26/23 04/01/23 Unknown History haloperidol 1 mg tablet 2 mg PO BEDTIME 02/26/23 04/01/23 Unknown History hydralazine 25 mg tablet 25 mg PO TID 02/26/23 04/01/23 Unknown History torsemide 20 mg tablet 20 mg PO DAILY 02/26/23 04/01/23 Unknown History acetaminophen 500 mg tablet 1,000 mg PO Q6H PRN Pain 04/01/23 04/01/23 Unknown History albuterol sulfate 90 mcg/actuation 2 puff inhalation Q6H PRN 04/01/23 04/01/23 Unknown History aerosol inhaler (Ventolin HFA) Shortness Of Breath Or Wheezing amlodipine 10 mg tablet 10 mg PO DAILY 04/01/23 04/01/23 Unknown History cetirizine 10 mg tablet 10 mg PO DAILY 04/01/23 04/01/23 Unknown History gabapentin 100 mg capsule 200 mg PO QID 04/01/23 04/01/23 Unknown History latanoprost 0.005 % eye drops 1 drp ophthalmic (eye) BEDTIME 04/01/23 04/01/23 Unknown History metformin 1,000 mg tablet 1,000 mg PO BID 04/01/23 04/01/23 Unknown History miconazole nitrate 2 % topical 1 appl topical DAILY PRN Rash 04/01/23 04/01/23 Unknown History cream montelukast 10 mg tablet 10 mg PO DAILY 04/01/23 04/01/23 Unknown History nystatin 100,000 unit/gram topical 1 appl topical DAILY PRN Rash 04/01/23 04/01/23 Unknown History powder Physical Exam 2 Vital Signs: Vital Signs: Last Vital Signs Temp 97.6 F 04/03/23 10:57 Pulse 94 04/03/23 10:57 Resp 20 04/03/23 10:57 BP 123/61 04/03/23 10:57 Pulse Ox 91 L 04/03/23 10:57 O2 Del Method Nasal Cannula 04/03/23 10:57 O2 Flow Rate 5 04/03/23 10:57 FiO2 40 04/01/23 06:00 Oxygen Flow Rate 6 03/31/23 21:35 BMI result Body Mass Index 38.9 GENERAL APPEARANCE: in no acute distress, pleasant. NECK: no carotid bruit, no jugular venous distention. SKIN: no suspicious lesions, warm and dry. HEART: no murmurs, regular rate and rhythm. LUNGS: Bilateral expiratory wheezes. ABDOMEN: soft, nontender. EXTREMITIES: no edema. PERIPHERAL PULSES: equal. NEUROLOGIC: No gross deficits, AAO X 3 Objective Labs and Meds 04/02/23 06:50 04/02/23 06:50 Lab results: Laboratory Results - last 24 hr 04/02/23 04/02/23 04/03/23 16:37 21:03 07:18 POC Glucose 181 H 117 H 135 H 04/03/23 11:04 POC Glucose 218 H Assessment and Plan (1) Acute respiratory failure: Status: Acute (2) Bradycardia: Status: Acute Plan Pleasant 53-year-old female who has COPD and presented with respiratory failure. She is improving from a respiratory point of view. She has been noticed to have intermittent bradycardia. She is asymptomatic. On telemetry she had Wenckebach as well as up to 4.2 sec pauses. Also heart rate suddenly changes from 80s to 90s to 60s. I think these changes are related to vagal tone and probably she has been taking naps during the day to and doing dose times probably getting bradycardia due to high vagal tone her sleep. Otherwise she does not have any conduction disease on EKG. Continue to monitor on telemetry. Currently no indication for pacemaker. I have discussed with the telemetry in charge to check on her in case she develops bradycardia again. Mainly we need to document that is she taking on after when she is bradycardic because that will give us a diagnosis that this is just related to high vagal tone her sleep. Thank you for allowing me to participate in the care of your patient. Please feel free to contact me if you have any questions. Procedures Date of Service Date of Service: 04/03/23
[2023-04-03 15:56] LABS: Glucose, Whole Blood 186 mg/dL (60-115)
[2023-04-03 20:34] LABS: Glucose, Whole Blood 100 mg/dL (60-115)
[2023-04-03] MEDS: Atorvastatin Calcium 20 MG TABLET PO (21:02)
[2023-04-03] MEDS: HaloperidoL 1 MG TABLET 2 MG PO (21:02)
[2023-04-03] MEDS: traZODone HCL 100 MG TABLET 300 MG PO (21:02)
[2023-04-03] MEDS: Prazosin HCL 1 MG CAPSULE 2 MG PO (21:14)
[2023-04-04] VITALS (11 sets, daily range): BP systolic 128–154; BP diastolic 70–77; PULSE 82–99; RESP 17–21; TEMP 36.1–36.7; O2SAT 91–98
[2023-04-04] MEDS: Albuterol/Iprat 2.5/0.5MG 3 ML AMPUL.NEB INHALE ×3 (07:42→18:58)
[2023-04-04] MEDS: Tiotropium Bromide 2.5 mcg 1 PUFF/2.5 MCG MIST.INHAL 2 PUFF INHALE (07:42)
[2023-04-04 07:47] LABS: Glucose, Whole Blood 118 mg/dL (60-115)
[2023-04-04] MEDS: predniSONE 20 MG TABLET 40 MG PO (08:16)
[2023-04-04] MEDS: Buprenorphine/Naloxone 4/1 mg FILM 1 FILM SUBLINGUAL (08:16)
[2023-04-04] MEDS: lamoTRIgine 100 MG TABLET PO ×2 (08:16→20:13)
[2023-04-04] MEDS: hydrALAZINE HCl 25 MG TABLET PO ×3 (08:17→20:14)
[2023-04-04] MEDS: Famotidine 20 MG TABLET PO ×2 (08:17→20:14)
[2023-04-04] MEDS: Loratadine 10 MG TABLET PO (08:17)
[2023-04-04] MEDS: Montelukast Sodium 10 MG TABLET PO (08:17)
[2023-04-04] MEDS: busPIRone HCl 10 MG TABLET PO ×3 (08:17→20:14)
[2023-04-04] MEDS: lisinopriL 40 MG TABLET PO (08:17)
[2023-04-04] MEDS: Prazosin HCL 1 MG CAPSULE PO (08:18)
[2023-04-04] MEDS: Sertraline HCL 50 MG TABLET 150 MG PO (08:18)
[2023-04-04] MEDS: Gabapentin 100 MG CAPSULE 200 MG PO ×4 (08:18→20:13)
[2023-04-04] MEDS: acetaZOLAMIDE sodium 500 MG VIAL 250 MG IVPUSH (08:20)
[2023-04-04] MEDS: Fluticasone Propionate Nasal 16 GM SPRAY 1 SPRAY NOSTRIL-B ×2 (08:22→20:16)
[2023-04-04] MEDS: Roflumilast 500 MCG TABLET PO (08:32)
--- NOTE | 2023-04-04 11:28 | HO.PM.IMPN ---
Subjective Subjective Date of Service: 04/04/23 Interval History: No respiratory distress but still hypoxic and requiring O2 Physical Exam Vital Signs: Vital Signs: Last Vital Signs Temp 98.1 F 04/04/23 11:20 Pulse 99 04/04/23 11:20 Resp 17 04/04/23 11:20 BP 141/72 H 04/04/23 11:20 Pulse Ox 91 L 04/04/23 11:20 O2 Del Method Nasal Cannula 04/04/23 11:20 O2 Flow Rate 4 04/04/23 11:20 FiO2 40 04/01/23 06:00 Oxygen Flow Rate 6 03/31/23 21:35 BMI result Body Mass Index 38.9 Const: Other: General: AO X 3, no acute distress Resp: CTA bilateral CVS: S1,S2,RRR GI: +BS, NT, no distention Skin: No rash Neuro: motor grossly intact Psych: appropriate affect Objective Data Active Medications Acetaminophen (Acetaminophen 325 Mg Tablet) 650 mg PO Q4H PRN PRN Reason: Pain, Mild (Pain Scale 1-3) Last Admin: 04/03/23 07:38 Dose: 650 mg Documented By: ARJUN Acetazolamide (Acetazolamide Sodium 500 Mg Vial) 250 mg IVPUSH DAILY [facility] Last Admin: 04/04/23 08:20 Dose: 250 mg Documented By: JORGE Albuterol/Ipratropium (Albuterol/Iprat 2.5/0.5mg 3 Ml Ampul.Neb) 3 ml INHALE RQ6H WHILE AWAKE [facility] Last Admin: 04/04/23 07:42 Dose: 3 ml Documented By: SHANELL Atorvastatin Calcium (Atorvastatin Calcium 20 Mg Tablet) 20 mg PO BEDTIME [facility] Last Admin: 04/03/23 21:02 Dose: 20 mg Documented By: VANDANA Buprenorphine/Naloxone (Buprenorphine/Naloxone 4/1 Mg Film) 1 film SUBLINGUAL DAILY [facility] Last Admin: 04/04/23 08:16 Dose: 1 film Documented By: JORGE Buspirone HCl (Buspirone Hcl 10 Mg Tablet) 10 mg PO TID [facility] Last Admin: 04/04/23 08:17 Dose: 10 mg Documented By: JORGE Docusate Sodium (Docusate Sodium 100 Mg Capsule) 100 mg PO BID PRN PRN Reason: Constipation Famotidine (Famotidine 20 Mg Tablet) 20 mg PO BID [facility] Last Admin: 04/04/23 08:17 Dose: 20 mg Documented By: JORGE Fluticasone Propionate (Fluticasone Propionate Nasal 16 Gm [place]) 1 spray NOSTRIL-B BID [facility] Last Admin: 04/04/23 08:22 Dose: 1 spray Documented By: JORGE Gabapentin (Gabapentin 100 Mg Capsule) 200 mg PO QID [facility] Last Admin: 04/04/23 08:18 Dose: 200 mg Documented By: JORGE Haloperidol (Haloperidol 1 Mg Tablet) 2 mg PO BEDTIME [facility] Last Admin: 04/03/23 21:02 Dose: 2 mg Documented By: VANDANA Haloperidol Lactate (Haloperidol Lactate 5 Mg/Ml Vial) 2 mg IVPUSH Q4H PRN PRN Reason: agitation Last Admin: 04/01/23 04:22 Dose: 2 mg Documented By: GRACE Heparin Sodium (Porcine) (Heparin Sodium,Porcine 5,000 Unit/Ml Vial) 5,000 unit SUBCUT Q8H [facility] Last Admin: 04/04/23 04:53 Dose: Not Given Documented By: VANDANA Non-Admin Reason: Patient Refused Hydralazine HCl (Hydralazine Hcl 25 Mg Tablet) 25 mg PO TID [facility]; Protocol Last Admin: 04/04/23 08:17 Dose: 25 mg Documented By: JORGE Insulin Human Lispro (Insulin Lispro 100 Unit/Ml 3 Ml Vial) 0 unit SUBCUT QIDACHS [facility]; Protocol Last Admin: 04/04/23 08:02 Dose: Not Given Documented By: JORGE Non-Admin Reason: No Insulin Coverage Lamotrigine (Lamotrigine 100 Mg Tablet) 100 mg PO BID [facility] Last Admin: 04/04/23 08:16 Dose: 100 mg Documented By: JORGE Latanoprost (Latanoprost 0.005 % Ophth Franc[place] 2.5 Ml Drops) 1 drop EYE-BOTH BEDTIME [facility] Last Admin: 04/03/23 21:13 Dose: Not Given Documented By: VANDANA Non-Admin Reason: Patient Refused Lisinopril (Lisinopril 40 Mg Tablet) 40 mg PO DAILY [facility]; Protocol Last Admin: 04/04/23 08:17 Dose: 40 mg Documented By: JORGE Loratadine (Loratadine 10 Mg Tablet) 10 mg PO DAILY [facility] Last Admin: 04/04/23 08:17 Dose: 10 mg Documented By: JORGE Miconazole Nitrate (Miconazole 2 % Extra Thick Cr 56.7 Gm Tube) 1 appl TOPICAL DAILY PRN; Protocol PRN Reason: Rash Montelukast Sodium (Montelukast Sodium 10 Mg Tablet) 10 mg PO DAILY [facility] Last Admin: 04/04/23 08:17 Dose: 10 mg Documented By: JORGE Nystatin (Nystatin Powder 15 Gm Bottle) 1 appl TOPICAL DAILY PRN; Protocol PRN Reason: Rash Ondansetron HCl (Ondansetron Odt 4 Mg Tab.Rapdis) 8 mg TRANSLINGU Q8H PRN PRN Reason: Nausea Prazosin HCl (Prazosin Hcl 1 Mg Capsule) 2 mg PO BEDTIME [facility]; Protocol Last Admin: 04/03/23 21:14 Dose: 2 mg Documented By: VANDANA Prazosin HCl (Prazosin Hcl 1 Mg Capsule) 1 mg PO DAILY [facility]; Protocol Last Admin: 04/04/23 08:18 Dose: 1 mg Documented By: JORGE Prednisone (Prednisone 20 Mg Tablet) 40 mg PO DAILY [facility] Last Admin: 04/04/23 08:16 Dose: 40 mg Documented By: JORGE Roflumilast (Roflumilast 500 Mcg Tablet) 500 mcg PO DAILY [facility] Last Admin: 04/04/23 08:32 Dose: 500 mcg Documented By: JORGE Sertraline HCl (Sertraline Hcl 50 Mg Tablet) 150 mg PO DAILY [facility] Last Admin: 04/04/23 08:18 Dose: 150 mg Documented By: JORGE Tiotropium [place] (Tiotropium [place] 2.5 Mcg 1 Puff/2.5 Mcg Mist.Inhal) 2 puff INHALE DAILY [facility] Last Admin: 04/04/23 07:42 Dose: 2 puff Documented By: SHANELL Torsemide (Torsemide 20 Mg Tablet) 20 mg PO DAILY [facility]; Protocol Last Admin: 04/04/23 08:21 Dose: Not Given Documented By: JORGE Non-Admin Reason: Patient Refused Trazodone HCl (Trazodone Hcl 100 Mg Tablet) 300 mg PO BEDTIME [facility] Last Admin: 04/03/23 21:02 Dose: 300 mg Documented By: VANDANA Labs 04/02/23 06:50 04/02/23 06:50 Labs: Laboratory Results - last 24 hr 04/03/23 04/03/23 04/04/23 15:51 20:29 07:34 POC Glucose 186 H 100 118 H Assessment and Plan (1) COPD exacerbation: Status: Acute (2) Acute respiratory failure: Status: Acute Plan 53-year-old lady, active 30 pack-year smoker, with underlying COPD, hypertension, ?bipolar disorder, diabetes mellitus, ?diastolic heart failure followed by Dr. Miramontes at [facility], admitted on 04/01/2023 with acute hypoxic and hypercapnic respiratory failure initially briefly requiring BiPAP, now titrated off. She was treated with systemic glucocorticoids, nebulized bronchodilators, and IV acetazolamide with significant improvement. Patient has been titrated off BiPAP. sent to floor on 04/02. Acute hypoxemic respiratory failure secondary to acute exacerbation of COPD: remains hypoxic and overall better on 4 liters now continue bronchodilators, steroid,, and may benefit from pulmonary rehab, Smoking cessation has been discussed [id number] diabetes mellitus. Continue Essential hypertension: Continue home antihypertensives Mood disorder: Continue home mood stabilizers Obesity: Counseled regarding diet and exercise Episode of sinus pause discussed with cardiology no further episode likely related to sleep and hypoxia DVT prophylaxis: Lovenox Full code need for inpt: Acute hypoxemic respiratory failure secondary to acute exacerbation of COPD- need IV start, nebs, oxygen support, respiratory status is not optimally yet. PT recommens pulmonary rehab Quality Stroke Does the patient have a stroke diagnosis?: No VTE Prior VTE?: No VTE Risk Level:: Medical - moderate - high VTE Device Contraindication: Treatment Not Indicated VTE Drug Contraindication: N/A - Med Ordered
[2023-04-04 11:47] LABS: Glucose, Whole Blood 176 mg/dL (60-115)
[2023-04-04] MEDS: Heparin Sodium,Porcine 5,000 UNIT/ML VIAL 5000 UNIT SUBCUT ×2 (12:03→17:29)
--- NOTE | 2023-04-04 14:09 | MHC.CM.PN ---
EMR reviewed and per MD rounds, pt is not medically cleared for D/C due to continued hypoxia requiring supplemental O2. Pt has been started to wean from O2. PT saw pt and recommended that if pt can remain off O2 she should return to the long term vs STR/pulmonary rehab if she remains on O2. NO bed offers received for STR at this time. catering and events manager Barbara called for an update which this MC provided. CM will continue to follow.
[2023-04-04 16:26] LABS: Glucose, Whole Blood 168 mg/dL (60-115)
[2023-04-04 20:04] LABS: Glucose, Whole Blood 104 mg/dL (60-115)
[2023-04-04] MEDS: Prazosin HCL 1 MG CAPSULE 2 MG PO (20:13)
[2023-04-04] MEDS: HaloperidoL 1 MG TABLET 2 MG PO (20:13)
[2023-04-04] MEDS: traZODone HCL 100 MG TABLET 300 MG PO (20:14)
[2023-04-04] MEDS: Atorvastatin Calcium 20 MG TABLET PO (20:14)
[2023-04-05] VITALS (8 sets, daily range): BP systolic 128–158; BP diastolic 63–84; PULSE 61–92; RESP 16–20; TEMP 36–36.8; O2SAT 88–98
[2023-04-05] MEDS: Albuterol/Iprat 2.5/0.5MG 3 ML AMPUL.NEB INHALE ×3 (07:25→19:31)
[2023-04-05] MEDS: Tiotropium Bromide 2.5 mcg 1 PUFF/2.5 MCG MIST.INHAL 2 PUFF INHALE (07:25)
[2023-04-05 07:26] LABS: Glucose, Whole Blood 105 mg/dL (60-115)
[2023-04-05] MEDS: Montelukast Sodium 10 MG TABLET PO (08:14)
[2023-04-05] MEDS: lamoTRIgine 100 MG TABLET PO ×2 (08:14→22:11)
[2023-04-05] MEDS: Gabapentin 100 MG CAPSULE 200 MG PO ×4 (08:14→22:10)
[2023-04-05] MEDS: hydrALAZINE HCl 25 MG TABLET PO ×3 (08:14→22:11)
[2023-04-05] MEDS: Roflumilast 500 MCG TABLET PO (08:14)
[2023-04-05] MEDS: Famotidine 20 MG TABLET PO ×2 (08:15→22:11)
[2023-04-05] MEDS: Loratadine 10 MG TABLET PO (08:15)
[2023-04-05] MEDS: predniSONE 20 MG TABLET 40 MG PO (08:15)
[2023-04-05] MEDS: busPIRone HCl 10 MG TABLET PO ×3 (08:15→22:11)
[2023-04-05] MEDS: lisinopriL 40 MG TABLET PO (08:15)
[2023-04-05] MEDS: Sertraline HCL 50 MG TABLET 150 MG PO (08:15)
[2023-04-05] MEDS: acetaZOLAMIDE sodium 500 MG VIAL 250 MG IVPUSH (08:16)
[2023-04-05] MEDS: Prazosin HCL 1 MG CAPSULE PO (08:16)
[2023-04-05] MEDS: Buprenorphine/Naloxone 4/1 mg FILM 1 FILM SUBLINGUAL (08:17)
[2023-04-05] MEDS: Fluticasone Propionate Nasal 16 GM SPRAY 1 SPRAY NOSTRIL-B (08:17)
[2023-04-05 09:21] LABS: Anion Gap 12 (12-20); Blood Urea Nitrogen 15 mg/dL (9-16); Calcium 9.8 mg/dL (8.4-10.2); Carbon Dioxide 31 mmol/L (22-29); Chloride 103 mmol/L (96-108); Creatinine Clr Calc Pharmacy 103.7; Estimated Glomerular Filt Rate > 60; Glucose Random 185 mg/dL (60-115); Magnesium 1.8 mg/dL (1.6-2.6); Potassium 2.8 mmol/L (3.3-5.1); Sodium 143 mmol/L (135-145)
[2023-04-05] MEDS: Heparin Sodium,Porcine 5,000 UNIT/ML VIAL 5000 UNIT SUBCUT ×2 (10:28→18:12)
[2023-04-05] MEDS: Potassium Chloride Packet 20 MEQ PACKET 40 MEQ PO ×3 (10:28→22:14)
--- NOTE | 2023-04-05 10:35 | HO.PM.IMPN ---
Subjective Subjective Date of Service: 04/05/23 Interval History: No respiratory distress, hypoxia is better, down to 2 liters by NC Physical Exam Vital Signs: Vital Signs: Last Vital Signs Temp 97.9 F 04/05/23 07:17 Pulse 92 04/05/23 07:27 Resp 20 04/05/23 07:27 BP 144/77 H 04/05/23 07:17 Pulse Ox 92 04/05/23 07:17 O2 Del Method Nasal Cannula 04/05/23 07:17 O2 Flow Rate 4 04/05/23 07:17 FiO2 40 04/01/23 06:00 Oxygen Flow Rate 6 03/31/23 21:35 BMI result Body Mass Index 38.9 Const: Other: General: AO X 3, no acute distress Resp: CTA bilateral CVS: S1,S2,RRR GI: +BS, NT, no distention Skin: No rash Neuro: motor grossly intact Psych: appropriate affect Objective Data Active Medications Acetaminophen (Acetaminophen 325 Mg Tablet) 650 mg PO Q4H PRN PRN Reason: Pain, Mild (Pain Scale 1-3) Last Admin: 04/03/23 07:38 Dose: 650 mg Documented By: ARJUN Acetazolamide (Acetazolamide Sodium 500 Mg Vial) 250 mg IVPUSH DAILY [facility] Last Admin: 04/05/23 08:16 Dose: 250 mg Documented By: REYNA Albuterol/Ipratropium (Albuterol/Iprat 2.5/0.5mg 3 Ml Ampul.Neb) 3 ml INHALE RQ6H WHILE AWAKE [facility] Last Admin: 04/05/23 07:25 Dose: 3 ml Documented By: ROSALIE Atorvastatin Calcium (Atorvastatin Calcium 20 Mg Tablet) 20 mg PO BEDTIME [facility] Last Admin: 04/04/23 20:14 Dose: 20 mg Documented By: JEROMY Buprenorphine/Naloxone (Buprenorphine/Naloxone 4/1 Mg Film) 1 film SUBLINGUAL DAILY [facility] Last Admin: 04/05/23 08:17 Dose: 1 film Documented By: REYNA Buspirone HCl (Buspirone Hcl 10 Mg Tablet) 10 mg PO TID [facility] Last Admin: 04/05/23 08:15 Dose: 10 mg Documented By: REYNA Docusate Sodium (Docusate Sodium 100 Mg Capsule) 100 mg PO BID PRN PRN Reason: Constipation Famotidine (Famotidine 20 Mg Tablet) 20 mg PO BID [facility] Last Admin: 04/05/23 08:15 Dose: 20 mg Documented By: REYNA Fluticasone Propionate (Fluticasone Propionate Nasal 16 Gm [place]) 1 spray NOSTRIL-B BID [facility] Last Admin: 04/05/23 08:17 Dose: 1 spray Documented By: REYNA Gabapentin (Gabapentin 100 Mg Capsule) 200 mg PO QID [facility] Last Admin: 04/05/23 08:14 Dose: 200 mg Documented By: REYNA Haloperidol (Haloperidol 1 Mg Tablet) 2 mg PO BEDTIME [facility] Last Admin: 04/04/23 20:13 Dose: 2 mg Documented By: JEROMY Haloperidol Lactate (Haloperidol Lactate 5 Mg/Ml Vial) 2 mg IVPUSH Q4H PRN PRN Reason: agitation Last Admin: 04/01/23 04:22 Dose: 2 mg Documented By: GRACE Heparin Sodium (Porcine) (Heparin Sodium,Porcine 5,000 Unit/Ml Vial) 5,000 unit SUBCUT Q8H [facility] Last Admin: 04/05/23 10:28 Dose: 5,000 unit Documented By: REYNA Hydralazine HCl (Hydralazine Hcl 25 Mg Tablet) 25 mg PO TID [facility]; Protocol Last Admin: 04/05/23 08:14 Dose: 25 mg Documented By: REYNA Insulin Human Lispro (Insulin Lispro 100 Unit/Ml 3 Ml Vial) 0 unit SUBCUT QIDACHS [facility]; Protocol Last Admin: 04/05/23 07:36 Dose: Not Given Documented By: REYNA Non-Admin Reason: No Insulin Coverage Lamotrigine (Lamotrigine 100 Mg Tablet) 100 mg PO BID [facility] Last Admin: 04/05/23 08:14 Dose: 100 mg Documented By: REYNA Latanoprost (Latanoprost 0.005 % Ophth [place] 2.5 Ml Drops) 1 drop EYE-BOTH BEDTIME [facility] Last Admin: 04/04/23 20:20 Dose: Not Given Documented By: JEROMY Non-Admin Reason: Patient Refused Lisinopril (Lisinopril 40 Mg Tablet) 40 mg PO DAILY [facility]; Protocol Last Admin: 04/05/23 08:15 Dose: 40 mg Documented By: REYNA Loratadine (Loratadine 10 Mg Tablet) 10 mg PO DAILY [facility] Last Admin: 04/05/23 08:15 Dose: 10 mg Documented By: REYNA Miconazole Nitrate (Miconazole 2 % Extra Thick Cr 56.7 Gm Tube) 1 appl TOPICAL DAILY PRN; Protocol PRN Reason: Rash Montelukast Sodium (Montelukast Sodium 10 Mg Tablet) 10 mg PO DAILY [facility] Last Admin: 04/05/23 08:14 Dose: 10 mg Documented By: REYNA Nystatin (Nystatin Powder 15 Gm Bottle) 1 appl TOPICAL DAILY PRN; Protocol PRN Reason: Rash Ondansetron HCl (Ondansetron Odt 4 Mg Tab.Rapdis) 8 mg TRANSLINGU Q8H PRN PRN Reason: Nausea Potassium Chloride (Potassium Chloride Packet 20 Meq Packet) 40 meq PO Q6H [facility] Stop: 04/05/23 21:46 Last Admin: 04/05/23 10:28 Dose: 40 meq Documented By: REYNA Prazosin HCl (Prazosin Hcl 1 Mg Capsule) 2 mg PO BEDTIME [facility]; Protocol Last Admin: 04/04/23 20:13 Dose: 2 mg Documented By: JEROMY Prazosin HCl (Prazosin Hcl 1 Mg Capsule) 1 mg PO DAILY [facility]; Protocol Last Admin: 04/05/23 08:16 Dose: 1 mg Documented By: REYNA Prednisone (Prednisone 20 Mg Tablet) 40 mg PO DAILY [facility] Last Admin: 04/05/23 08:15 Dose: 40 mg Documented By: REYNA Roflumilast (Roflumilast 500 Mcg Tablet) 500 mcg PO DAILY [facility] Last Admin: 04/05/23 08:14 Dose: 500 mcg Documented By: REYNA Sertraline HCl (Sertraline Hcl 50 Mg Tablet) 150 mg PO DAILY [facility] Last Admin: 04/05/23 08:15 Dose: 150 mg Documented By: REYNA Tiotropium [place] (Tiotropium [place] 2.5 Mcg 1 Puff/2.5 Mcg Mist.Inhal) 2 puff INHALE DAILY [facility] Last Admin: 04/05/23 07:25 Dose: 2 puff Documented By: ROSALIE Torsemide (Torsemide 20 Mg Tablet) 20 mg PO DAILY [facility]; Protocol Last Admin: 04/05/23 08:21 Dose: Not Given Documented By: REYNA Non-Admin Reason: Patient Refused Trazodone HCl (Trazodone Hcl 100 Mg Tablet) 300 mg PO BEDTIME [facility] Last Admin: 04/04/23 20:14 Dose: 300 mg Documented By: JEROMY Labs 04/02/23 06:50 04/05/23 08:36 Labs: Laboratory Results - last 24 hr 04/04/23 04/04/23 04/04/23 11:18 16:14 20:00 Anion Gap Estim Creat Clear Calc Estimated GFR POC Glucose 176 H 168 H 104 Random Glucose Calcium Magnesium 04/05/23 04/05/23 07:22 08:36 Anion Gap 12 Estim Creat Clear Calc 103.7 Estimated GFR > 60 POC Glucose 105 Random Glucose 185 H Calcium 9.8 Magnesium 1.8 Assessment and Plan (1) COPD exacerbation: Status: Acute (2) Acute respiratory failure: Status: Acute Plan 53-year-old lady, active 30 pack-year smoker, with underlying COPD, hypertension, ?bipolar disorder, diabetes mellitus, ?diastolic heart failure followed by Dr. Miramontes at [facility], admitted on 04/01/2023 with acute hypoxic and hypercapnic respiratory failure initially briefly requiring BiPAP, now titrated off. She was treated with systemic glucocorticoids, nebulized bronchodilators, and IV acetazolamide with significant improvement. Patient has been titrated off BiPAP. sent to floor on 04/02. Acute hypoxemic respiratory failure secondary to acute exacerbation of COPD: Hypoxia is improving, down to 2 li by NC continue bronchodilators, steroid. Pulmonoary rehab at discharge unless weans off O2, [facility]. Smoking cessation has been discussed Big-[id number] diabetes mellitus. Continue Essential hypertension: Continue home antihypertensives Mood disorder: Continue home mood stabilizers Obesity: Counseled regarding diet and exercise Hypokalemia--replace with PO KCL, mag nl, repeat tomorrow Episode of sinus pause discussed with cardiology no further episode likely related to sleep and hypoxia, no further episode DVT prophylaxis: Lovenox Full code need for inpt: Acute hypoxemic respiratory failure secondary to acute exacerbation of COPD- need IV start, nebs, oxygen support, respiratory status is not optimally yet. PT recommens pulmonary rehab Quality Stroke Does the patient have a stroke diagnosis?: No VTE Prior VTE?: No VTE Risk Level:: Medical - moderate - high VTE Device Contraindication: Treatment Not Indicated VTE Drug Contraindication: N/A - Med Ordered
[2023-04-05 11:29] LABS: Glucose, Whole Blood 164 mg/dL (60-115)
[2023-04-05 16:32] LABS: Glucose, Whole Blood 152 mg/dL (60-115)
[2023-04-05 20:38] LABS: Glucose, Whole Blood 164 mg/dL (60-115)
[2023-04-05] MEDS: Prazosin HCL 1 MG CAPSULE 2 MG PO (22:08)
[2023-04-05] MEDS: HaloperidoL 1 MG TABLET 2 MG PO (22:10)
[2023-04-05] MEDS: Atorvastatin Calcium 20 MG TABLET PO (22:10)
[2023-04-05] MEDS: traZODone HCL 100 MG TABLET 300 MG PO (22:11)
[2023-04-06] VITALS (10 sets, daily range): BP systolic 130–162; BP diastolic 70–82; PULSE 64–125; RESP 16–20; TEMP 36.3–37.1; O2SAT 83–96
[2023-04-06 07:46] LABS: Glucose, Whole Blood 115 mg/dL (60-115)
[2023-04-06] MEDS: Albuterol/Iprat 2.5/0.5MG 3 ML AMPUL.NEB INHALE ×3 (08:02→18:42)
[2023-04-06] MEDS: Tiotropium Bromide 2.5 mcg 1 PUFF/2.5 MCG MIST.INHAL 2 PUFF INHALE (08:02)
[2023-04-06 08:15] LABS: Anion Gap 12 (12-20); Blood Urea Nitrogen 15 mg/dL (9-16); Calcium 9.5 mg/dL (8.4-10.2); Carbon Dioxide 26 mmol/L (22-29); Chloride 109 mmol/L (96-108); Creatinine Clr Calc Pharmacy 116.1; Estimated Glomerular Filt Rate > 60; Glucose Random 99 mg/dL (60-115); Potassium 3.5 mmol/L (3.3-5.1); Sodium 143 mmol/L (135-145)
[2023-04-06] MEDS: predniSONE 20 MG TABLET 40 MG PO (09:04)
[2023-04-06] MEDS: Acetaminophen 325 MG TABLET 650 MG PO ×2 (09:04→20:54)
[2023-04-06] MEDS: lisinopriL 40 MG TABLET PO (09:04)
[2023-04-06] MEDS: Montelukast Sodium 10 MG TABLET PO (09:04)
[2023-04-06] MEDS: Buprenorphine/Naloxone 4/1 mg FILM 1 FILM SUBLINGUAL (09:04)
[2023-04-06] MEDS: busPIRone HCl 10 MG TABLET PO ×3 (09:05→20:45)
[2023-04-06] MEDS: Sertraline HCL 50 MG TABLET 150 MG PO (09:05)
[2023-04-06] MEDS: Roflumilast 500 MCG TABLET PO (09:05)
[2023-04-06] MEDS: Prazosin HCL 1 MG CAPSULE PO (09:05)
[2023-04-06] MEDS: Gabapentin 100 MG CAPSULE 200 MG PO ×4 (09:05→20:54)
[2023-04-06] MEDS: Loratadine 10 MG TABLET PO (09:06)
[2023-04-06] MEDS: lamoTRIgine 100 MG TABLET PO ×2 (09:06→20:44)
[2023-04-06] MEDS: hydrALAZINE HCl 25 MG TABLET PO ×3 (09:06→20:45)
[2023-04-06] MEDS: Fluticasone Propionate Nasal 16 GM SPRAY 1 SPRAY NOSTRIL-B (09:06)
[2023-04-06] MEDS: Famotidine 20 MG TABLET PO ×2 (09:06→20:44)
[2023-04-06 11:27] LABS: Glucose, Whole Blood 160 mg/dL (60-115)
--- NOTE | 2023-04-06 11:52 | P.PNIM_ITS ---
Subjective Subjective Date of Service: 04/06/23 Interval History: No respiratory distress, hypoxia is better, 90% on room air Physical Exam 2 Vital Signs: Vital Signs: Last Vital Signs Temp 97.3 F 04/06/23 11:10 Pulse 88 04/06/23 11:10 Resp 16 04/06/23 11:10 BP 133/73 04/06/23 11:10 Pulse Ox 90 L 04/06/23 11:10 O2 Del Method Room Air 04/06/23 11:10 O2 Flow Rate 2 04/06/23 07:42 FiO2 40 04/01/23 06:00 Oxygen Flow Rate 6 03/31/23 21:35 BMI result Body Mass Index 38.9 Const: Other: General: AO X 3, no acute distress Resp: CTA bilateral CVS: S1,S2,RRR GI: +BS, NT, no distention Skin: No rash Neuro: motor grossly intact Psych: appropriate affect Objective Data Active Medications Acetaminophen (Acetaminophen 325 Mg Tablet) 650 mg PO Q4H PRN PRN Reason: Pain, Mild (Pain Scale 1-3) Last Admin: 04/06/23 09:04 Dose: 650 mg Documented By: REYNA Acetazolamide (Acetazolamide Sodium 500 Mg Vial) 250 mg IVPUSH DAILY [facility] Last Admin: 04/06/23 09:10 Dose: Not Given Documented By: REYNA Non-Admin Reason: No Access Comments: MD is aware of no IV access Albuterol/Ipratropium (Albuterol/Iprat 2.5/0.5mg 3 Ml Ampul.Neb) 3 ml INHALE RQ6H WHILE AWAKE [facility] Last Admin: 04/06/23 08:02 Dose: 3 ml Documented By: ROSALIE Atorvastatin Calcium (Atorvastatin Calcium 20 Mg Tablet) 20 mg PO BEDTIME [facility] Last Admin: 04/05/23 22:10 Dose: 20 mg Documented By: ENEIDA Buprenorphine/Naloxone (Buprenorphine/Naloxone 4/1 Mg Film) 1 film SUBLINGUAL DAILY [facility] Last Admin: 04/06/23 09:04 Dose: 1 film Documented By: REYNA Buspirone HCl (Buspirone Hcl 10 Mg Tablet) 10 mg PO TID [facility] Last Admin: 04/06/23 09:05 Dose: 10 mg Documented By: REYNA Docusate Sodium (Docusate Sodium 100 Mg Capsule) 100 mg PO BID PRN PRN Reason: Constipation Famotidine (Famotidine 20 Mg Tablet) 20 mg PO BID [facility] Last Admin: 04/06/23 09:06 Dose: 20 mg Documented By: REYNA Fluticasone Propionate (Fluticasone Propionate Nasal 16 Gm [place]) 1 spray NOSTRIL-B BID [facility] Last Admin: 04/06/23 09:06 Dose: 1 spray Documented By: REYNA Gabapentin (Gabapentin 100 Mg Capsule) 200 mg PO QID [facility] Last Admin: 04/06/23 09:05 Dose: 200 mg Documented By: REYNA Haloperidol (Haloperidol 1 Mg Tablet) 2 mg PO BEDTIME [facility] Last Admin: 04/05/23 22:10 Dose: 2 mg Documented By: ENEIDA Haloperidol Lactate (Haloperidol Lactate 5 Mg/Ml Vial) 2 mg IVPUSH Q4H PRN PRN Reason: agitation Last Admin: 04/01/23 04:22 Dose: 2 mg Documented By: GRACE Heparin Sodium (Porcine) (Heparin Sodium,Porcine 5,000 Unit/Ml Vial) 5,000 unit SUBCUT Q8H [facility] Last Admin: 04/06/23 11:44 Dose: Not Given Documented By: REYNA Non-Admin Reason: Patient Refused Hydralazine HCl (Hydralazine Hcl 25 Mg Tablet) 25 mg PO TID [facility]; Protocol Last Admin: 04/06/23 09:06 Dose: 25 mg Documented By: REYNA Insulin Human Lispro (Insulin Lispro 100 Unit/Ml 3 Ml Vial) 0 unit SUBCUT QIDACHS [facility]; Protocol Last Admin: 04/06/23 11:44 Dose: Not Given Documented By: REYNA Non-Admin Reason: Patient Refused Lamotrigine (Lamotrigine 100 Mg Tablet) 100 mg PO BID [facility] Last Admin: 04/06/23 09:06 Dose: 100 mg Documented By: REYNA Latanoprost (Latanoprost 0.005 % Ophth Francine 2.5 Ml Drops) 1 drop EYE-BOTH BEDTIME [facility] Last Admin: 04/05/23 22:12 Dose: Not Given Documented By: ENEIDA Non-Admin Reason: Patient Refused Lisinopril (Lisinopril 40 Mg Tablet) 40 mg PO DAILY [facility]; Protocol Last Admin: 04/06/23 09:04 Dose: 40 mg Documented By: REYNA Loratadine (Loratadine 10 Mg Tablet) 10 mg PO DAILY [facility] Last Admin: 04/06/23 09:06 Dose: 10 mg Documented By: REYNA Miconazole Nitrate (Miconazole 2 % Extra Thick Cr 56.7 Gm Tube) 1 appl TOPICAL DAILY PRN; Protocol PRN Reason: Rash Montelukast Sodium (Montelukast Sodium 10 Mg Tablet) 10 mg PO DAILY [facility] Last Admin: 04/06/23 09:04 Dose: 10 mg Documented By: REYNA Nystatin (Nystatin Powder 15 Gm Bottle) 1 appl TOPICAL DAILY PRN; Protocol PRN Reason: Rash Ondansetron HCl (Ondansetron Odt 4 Mg Tab.Rapdis) 8 mg TRANSLINGU Q8H PRN PRN Reason: Nausea Prazosin HCl (Prazosin Hcl 1 Mg Capsule) 2 mg PO BEDTIME [facility]; Protocol Last Admin: 04/05/23 22:08 Dose: 2 mg Documented By: ENEIDA Prazosin HCl (Prazosin Hcl 1 Mg Capsule) 1 mg PO DAILY [facility]; Protocol Last Admin: 04/06/23 09:05 Dose: 1 mg Documented By: REYNA Prednisone (Prednisone 20 Mg Tablet) 40 mg PO DAILY [facility] Last Admin: 04/06/23 09:04 Dose: 40 mg Documented By: REYNA Roflumilast (Roflumilast 500 Mcg Tablet) 500 mcg PO DAILY [facility] Last Admin: 04/06/23 09:05 Dose: 500 mcg Documented By: REYNA Sertraline HCl (Sertraline Hcl 50 Mg Tablet) 150 mg PO DAILY [facility] Last Admin: 04/06/23 09:05 Dose: 150 mg Documented By: REYNA Tiotropium [place] (Tiotropium [place] 2.5 Mcg 1 Puff/2.5 Mcg Mist.Inhal) 2 puff INHALE DAILY [facility] Last Admin: 04/06/23 08:02 Dose: 2 puff Documented By: ROSALIE Torsemide (Torsemide 20 Mg Tablet) 20 mg PO DAILY [facility]; Protocol Last Admin: 04/06/23 09:06 Dose: Not Given Documented By: REYNA Non-Admin Reason: Patient Refused Trazodone HCl (Trazodone Hcl 100 Mg Tablet) 300 mg PO BEDTIME [facility] Last Admin: 04/05/23 22:11 Dose: 300 mg Documented By: ENEIDA Labs 04/02/23 06:50 04/06/23 06:32 Labs: Laboratory Results - last 24 hr 04/05/23 04/05/23 04/06/23 16:27 20:31 06:32 Hold Purple Top SEE NOTE Anion Gap 12 Estim Creat Clear Calc 116.1 Estimated GFR > 60 POC Glucose 152 H 164 H Random Glucose 99 Calcium 9.5 04/06/23 04/06/23 07:43 11:13 Hold Purple Top Anion Gap Estim Creat Clear Calc Estimated GFR POC Glucose 115 160 H Random Glucose Calcium Microbiology Microbiology Results: Microbiology 03/31/23 23:51 Blood Culture - Final Blood - Venous No growth after 5 days. 03/31/23 23:11 Blood Culture - Final Blood - Venous No growth after 5 days. Assessment and Plan (1) COPD exacerbation: Status: Acute (2) Acute respiratory failure: Status: Acute Plan 53-year-old lady, active 30 pack-year smoker, with underlying COPD, hypertension, ?bipolar disorder, diabetes mellitus, ?diastolic heart failure followed by Dr. Miramontes at [facility], admitted on 04/01/2023 with acute hypoxic and hypercapnic respiratory failure initially briefly requiring BiPAP, now titrated off. She was treated with systemic glucocorticoids, nebulized bronchodilators, and IV acetazolamide with significant improvement. Patient has been titrated off BiPAP. sent to floor on 04/02. Acute hypoxemic respiratory failure secondary to acute exacerbation of COPD: Hypoxia is improving, on room air and sating 90 continue bronchodilators, steroid. Pulmonoary rehab at discharge unless weans off O2, cannot return to [facility] with [facility]. Smoking cessation has been discussed [id number] diabetes mellitus. Continue Essential hypertension: Continue home antihypertensives Mood disorder: Continue home mood stabilizers Obesity: Counseled regarding diet and exercise Hypokalemia--replace with PO KCL, mag nl, repeat tomorrow Episode of sinus pause discussed with cardiology no further episode likely related to sleep and hypoxia, no further episode DVT prophylaxis: Lovenox Full code need for inpt: Acute hypoxemic respiratory failure secondary to acute exacerbation of COPD- need IV start, nebs, oxygen support, respiratory status is not optimally yet and not able to return to [facility] unless off O2 PT recommens pulmonary rehab Quality Stroke Does the patient have a stroke diagnosis?: No VTE Prior VTE?: No VTE Risk Level:: Medical - moderate - high VTE Device Contraindication: Treatment Not Indicated VTE Drug Contraindication: N/A - Med Ordered
--- NOTE | 2023-04-06 14:45 | MHC.CM.PN ---
EMR reviewed and per MD rounds, pt is not medically cleared for D/C due to weaning from oxygen, respiratory status is not optimal yet and pt cannot return to [facility] unless off O2. CM will continue to follow.
[2023-04-06 16:17] LABS: Glucose, Whole Blood 173 mg/dL (60-115)
[2023-04-06] MEDS: Heparin Sodium,Porcine 5,000 UNIT/ML VIAL 5000 UNIT SUBCUT (18:06)
[2023-04-06 20:11] LABS: Glucose, Whole Blood 133 mg/dL (60-115)
[2023-04-06] MEDS: Prazosin HCL 1 MG CAPSULE 2 MG PO (20:43)
[2023-04-06] MEDS: HaloperidoL 1 MG TABLET 2 MG PO (20:43)
[2023-04-06] MEDS: traZODone HCL 100 MG TABLET 300 MG PO (20:43)
[2023-04-06] MEDS: Atorvastatin Calcium 20 MG TABLET PO (20:43)
[2023-04-07 04:00] VITALS: BP 158/80; PULSE 63; RESP 15; TEMP 37.1; O2SAT 93
[2023-04-07] MEDS: Heparin Sodium,Porcine 5,000 UNIT/ML VIAL 5000 UNIT SUBCUT ×2 (04:21→11:40)
[2023-04-07] MEDS: Tiotropium Bromide 2.5 mcg 1 PUFF/2.5 MCG MIST.INHAL 2 PUFF INHALE (07:27)
[2023-04-07] MEDS: Albuterol/Iprat 2.5/0.5MG 3 ML AMPUL.NEB INHALE ×2 (07:27→13:16)
[2023-04-07 07:29] VITALS: PULSE 66; RESP 18; O2SAT 92
[2023-04-07 07:34] VITALS: BP 140/85; PULSE 83; RESP 18; TEMP 36.1; O2SAT 99
[2023-04-07 07:50] LABS: Glucose, Whole Blood 132 mg/dL (60-115)
[2023-04-07] MEDS: hydrALAZINE HCl 25 MG TABLET PO ×2 (07:54→14:24)
[2023-04-07] MEDS: Loratadine 10 MG TABLET PO (07:54)
[2023-04-07] MEDS: Sertraline HCL 50 MG TABLET 150 MG PO (07:54)
[2023-04-07] MEDS: Gabapentin 100 MG CAPSULE 200 MG PO ×2 (07:55→11:44)
[2023-04-07] MEDS: lisinopriL 40 MG TABLET PO (07:55)
[2023-04-07] MEDS: Prazosin HCL 1 MG CAPSULE PO (07:55)
[2023-04-07] MEDS: Roflumilast 500 MCG TABLET PO (07:55)
[2023-04-07] MEDS: predniSONE 20 MG TABLET 40 MG PO (07:55)
[2023-04-07] MEDS: Famotidine 20 MG TABLET PO (07:55)
[2023-04-07] MEDS: lamoTRIgine 100 MG TABLET PO (07:56)
[2023-04-07] MEDS: Torsemide 20 MG TABLET PO (07:56)
[2023-04-07] MEDS: Buprenorphine/Naloxone 4/1 mg FILM 1 FILM SUBLINGUAL (07:56)
[2023-04-07] MEDS: Acetaminophen 325 MG TABLET 650 MG PO ×2 (07:56→14:25)
[2023-04-07] MEDS: busPIRone HCl 10 MG TABLET PO ×2 (07:56→14:24)
[2023-04-07] MEDS: Montelukast Sodium 10 MG TABLET PO (07:56)
--- NOTE | 2023-04-07 08:07 | P.PNIM_ITS ---
Subjective Subjective Date of Service: 04/07/23 Physical Exam 2 Vital Signs: Vital Signs: Last Vital Signs Temp 96.9 F 04/07/23 07:34 Pulse 83 04/07/23 07:34 Resp 18 04/07/23 07:34 BP 140/85 H 04/07/23 07:34 Pulse Ox 99 04/07/23 07:34 O2 Del Method Room Air 04/07/23 07:34 O2 Flow Rate 2 04/07/23 04:00 FiO2 40 04/01/23 06:00 Oxygen Flow Rate 6 03/31/23 21:35 BMI result Body Mass Index 38.9 Objective Data Active Medications Acetaminophen (Acetaminophen 325 Mg Tablet) 650 mg PO Q4H PRN PRN Reason: Pain, Mild (Pain Scale 1-3) Last Admin: 04/07/23 07:56 Dose: 650 mg Documented By: ROSHNI Acetazolamide (Acetazolamide Sodium 500 Mg Vial) 250 mg IVPUSH DAILY [facility] Last Admin: 04/07/23 07:59 Dose: Not Given Documented By: ROSHNI Non-Admin Reason: No Access Albuterol/Ipratropium (Albuterol/Iprat 2.5/0.5mg 3 Ml Ampul.Neb) 3 ml INHALE RQ6H WHILE AWAKE [facility] Last Admin: 04/07/23 07:27 Dose: 3 ml Documented By: ROSALIE Atorvastatin Calcium (Atorvastatin Calcium 20 Mg Tablet) 20 mg PO BEDTIME [facility] Last Admin: 04/06/23 20:43 Dose: 20 mg Documented By: TIANNA Buprenorphine/Naloxone (Buprenorphine/Naloxone 4/1 Mg Film) 1 film SUBLINGUAL DAILY [facility] Last Admin: 04/07/23 07:56 Dose: 1 film Documented By: ROSHNI Buspirone HCl (Buspirone Hcl 10 Mg Tablet) 10 mg PO TID [facility] Last Admin: 04/07/23 07:56 Dose: 10 mg Documented By: ROSHNI Docusate Sodium (Docusate Sodium 100 Mg Capsule) 100 mg PO BID PRN PRN Reason: Constipation Famotidine (Famotidine 20 Mg Tablet) 20 mg PO BID [facility] Last Admin: 04/07/23 07:55 Dose: 20 mg Documented By: ROSHNI Fluticasone Propionate (Fluticasone Propionate Nasal 16 Gm [place]) 1 spray NOSTRIL-B BID [facility] Last Admin: 04/06/23 20:46 Dose: Not Given Documented By: TIANNA Non-Admin Reason: Patient Refused Gabapentin (Gabapentin 100 Mg Capsule) 200 mg PO QID [facility] Last Admin: 04/07/23 07:55 Dose: 200 mg Documented By: ROSHNI Haloperidol (Haloperidol 1 Mg Tablet) 2 mg PO BEDTIME [facility] Last Admin: 04/06/23 20:43 Dose: 2 mg Documented By: TIANNA Haloperidol Lactate (Haloperidol Lactate 5 Mg/Ml Vial) 2 mg IVPUSH Q4H PRN PRN Reason: agitation Last Admin: 04/01/23 04:22 Dose: 2 mg Documented By: GRACE Heparin Sodium (Porcine) (Heparin Sodium,Porcine 5,000 Unit/Ml Vial) 5,000 unit SUBCUT Q8H [facility] Last Admin: 04/07/23 04:21 Dose: 5,000 unit Documented By: TIANNA Hydralazine HCl (Hydralazine Hcl 25 Mg Tablet) 25 mg PO TID [facility]; Protocol Last Admin: 04/07/23 07:54 Dose: 25 mg Documented By: ROSHNI Insulin Human Lispro (Insulin Lispro 100 Unit/Ml 3 Ml Vial) 0 unit SUBCUT QIDACHS [facility]; Protocol Last Admin: 04/07/23 07:59 Dose: Not Given Documented By: ROSHNI Non-Admin Reason: No Insulin Coverage Lamotrigine (Lamotrigine 100 Mg Tablet) 100 mg PO BID [facility] Last Admin: 04/07/23 07:56 Dose: 100 mg Documented By: ROSHNI Latanoprost (Latanoprost 0.005 % Ophth Francine 2.5 Ml Drops) 1 drop EYE-BOTH BEDTIME [facility] Last Admin: 04/06/23 20:46 Dose: Not Given Documented By: TIANNA Non-Admin Reason: Patient Refused Lisinopril (Lisinopril 40 Mg Tablet) 40 mg PO DAILY [facility]; Protocol Last Admin: 04/07/23 07:55 Dose: 40 mg Documented By: ROSHNI Loratadine (Loratadine 10 Mg Tablet) 10 mg PO DAILY [facility] Last Admin: 04/07/23 07:54 Dose: 10 mg Documented By: ROSHNI Miconazole Nitrate (Miconazole 2 % Extra Thick Cr 56.7 Gm Tube) 1 appl TOPICAL DAILY PRN; Protocol PRN Reason: Rash Montelukast Sodium (Montelukast Sodium 10 Mg Tablet) 10 mg PO DAILY [facility] Last Admin: 04/07/23 07:56 Dose: 10 mg Documented By: ROSHNI Nystatin (Nystatin Powder 15 Gm Bottle) 1 appl TOPICAL DAILY PRN; Protocol PRN Reason: Rash Ondansetron HCl (Ondansetron Odt 4 Mg Tab.Rapdis) 8 mg TRANSLINGU Q8H PRN PRN Reason: Nausea Prazosin HCl (Prazosin Hcl 1 Mg Capsule) 2 mg PO BEDTIME [facility]; Protocol Last Admin: 04/06/23 20:43 Dose: 2 mg Documented By: TIANNA Prazosin HCl (Prazosin Hcl 1 Mg Capsule) 1 mg PO DAILY [facility]; Protocol Last Admin: 04/07/23 07:55 Dose: 1 mg Documented By: ROSHNI Prednisone (Prednisone 20 Mg Tablet) 40 mg PO DAILY [facility] Last Admin: 04/07/23 07:55 Dose: 40 mg Documented By: ROSHNI Roflumilast (Roflumilast 500 Mcg Tablet) 500 mcg PO DAILY [facility] Last Admin: 04/07/23 07:55 Dose: 500 mcg Documented By: ROSHNI Sertraline HCl (Sertraline Hcl 50 Mg Tablet) 150 mg PO DAILY [facility] Last Admin: 04/07/23 07:54 Dose: 150 mg Documented By: ROSHNI Tiotropium [place] (Tiotropium [place] 2.5 Mcg 1 Puff/2.5 Mcg Mist.Inhal) 2 puff INHALE DAILY [facility] Last Admin: 04/07/23 07:27 Dose: 2 puff Documented By: ROSALIE Torsemide (Torsemide 20 Mg Tablet) 20 mg PO DAILY [facility]; Protocol Last Admin: 04/07/23 07:56 Dose: 20 mg Documented By: ROSHNI Trazodone HCl (Trazodone Hcl 100 Mg Tablet) 300 mg PO BEDTIME [facility] Last Admin: 04/06/23 20:43 Dose: 300 mg Documented By: TIANNA Labs 04/02/23 06:50 11/24/23 06:32 Labs: Laboratory Results - last 24 hr 04/06/23 04/06/23 04/06/23 06:32 11:13 16:09 Anion Gap 12 Estim Creat Clear Calc 116.1 Estimated GFR > 60 POC Glucose 160 H 173 H Random Glucose 99 Calcium 9.5 04/06/23 04/07/23 20:07 07:37 Anion Gap Estim Creat Clear Calc Estimated GFR POC Glucose 133 H 132 H Random Glucose Calcium Assessment and Plan (1) COPD exacerbation: Status: Acute (2) Acute respiratory failure: Status: Acute Plan 53-year-old lady, active 30 pack-year smoker, with underlying COPD, hypertension, ?bipolar disorder, diabetes mellitus, ?diastolic heart failure followed by Dr. Miramontes at [facility], admitted on 04/01/2023 with acute hypoxic and hypercapnic respiratory failure initially briefly requiring BiPAP, now titrated off. She was treated with systemic glucocorticoids, nebulized bronchodilators, and IV acetazolamide with significant improvement. Patient has been titrated off BiPAP. sent to floor on 04/02. Acute hypoxemic respiratory failure secondary to acute exacerbation of COPD: Hypoxia is improving, on room air and sating 90 continue bronchodilators, steroid. Pulmonoary rehab at discharge unless she is able to wean off O2, cannot [facility]. Smoking cessation has been discussed Uoc-[id number] diabetes mellitus. Continue Essential hypertension: Continue home antihypertensives Mood disorder: Continue home mood stabilizers Obesity: Counseled regarding diet and exercise Hypokalemia--replace with PO KCL, mag nl Episode of sinus pause discussed with cardiology no further episode likely related to sleep and hypoxia, no further episode DVT prophylaxis: Lovenox Full code need for inpt: Acute hypoxemic respiratory failure secondary to acute exacerbation of COPD- need IV start, nebs, oxygen support, respiratory status is not optimally yet and not able to return to jail unless off O2 PT recommens pulmonary rehab Quality Stroke Does the patient have a stroke diagnosis?: No VTE Prior VTE?: No VTE Risk Level:: Medical - moderate - high VTE Device Contraindication: Treatment Not Indicated VTE Drug Contraindication: N/A - Med Ordered
[2023-04-07 11:28] VITALS: BP 155/89; PULSE 93; RESP 18; TEMP 36.1; O2SAT 93
[2023-04-07 11:34] LABS: Glucose, Whole Blood 190 mg/dL (60-115)
[2023-04-07 13:17] VITALS: PULSE 114; RESP 18; O2SAT 91
--- NOTE | 2023-04-07 13:49 | PM.DS ---
DS: Providers Provider Date of Service: 04/07/23 Date of admission: 04/01/23 03:01 Primary care physician: Adriana Clayton CNP Consults: 04/03/23 12:22 Consult to Cardiology Routine Consulting Provider: [facility] [place] [facility] Reason for consultation: 4 sec pause ? nargis DS: Diagnosis Discharge Diagnosis (1) COPD exacerbation: Status: Acute (2) Acute respiratory failure: Status: Acute DS: Summary Hospital Course Hospital Course: Admission HPI: Chief Complaint: Acute hypoxic and hypercapnic respiratory failure 53-year-old lady, active 30 pack-year smoker, with underlying COPD, hypertension, ?bipolar disorder, diabetes mellitus, ?diastolic heart failure followed by Dr. Miramontes at [facility], admitted on 04/01/2023 with acute hypoxic and hypercapnic respiratory failure initially briefly requiring BiPAP, now titrated off. She was treated with systemic glucocorticoids, nebulized bronchodilators, and IV acetazolamide with significant improvement. Patient has been titrated off BiPAP. Patient states that her respiratory symptoms have resolved and she is back to her baseline. Hospital course: Patient presented with acute hypoxic respiratory failure related to copd and was admitted to the ICU due to severe hypoxia and was admitted to through the ICU and required BiPAP. Her management consisted of IV steroid, bronchodilators by Nebulizer. She was also diuresed with home usual dose of Tosemide in addition to Diamox. She improved and was transfered out of ICU, but continued to be hypoxic and required high amount of O2 initially but fortunately and gradually was able to be to wean off oxygen and presently saturating 92 to 99 on room air. The importance not smoking has been highly emphsized to her. Initial plan was for the patient to go pulmonary rehab however given that she has succesfully weaned oxygen will return to [facility]. Fjn-libbyac-noyszxehc diabetes mellitus. Continue Essential hypertension: Continue home antihypertensives Mood disorder: Continue home mood stabilizers Obesity: Counseled regarding diet and exercise Hypokalemia-- resolved with replacement. Episode of sinus pause discussed with cardiology no further episode likely related to sleep and hypoxia, no further episode, she was seen by relief manager and needs no further testing at this time Final diagnoses: Acute hypoxic respiratory failure acute copd exacerbation chronic tobacco use obesity diabetess Time Attestation Discharge coordination time: Greater than 30 minutes Quality: Safe Use of Opioids Does Pt have an Active Cancer Diagnosis on the Problem List?: No Quality: Stroke Does the patient have a stroke diagnosis?: No Physical Exam Vital Signs: Vital Signs: Last Vital Signs Temp 96.9 F 04/07/23 11:28 Pulse 114 H 04/07/23 13:17 Resp 18 04/07/23 13:17 BP 155/89 H 04/07/23 11:28 Pulse Ox 93 04/07/23 11:28 O2 Del Method Room Air 04/07/23 11:28 O2 Flow Rate 2 04/07/23 04:00 FiO2 40 04/01/23 06:00 Oxygen Flow Rate 6 03/31/23 21:35 BMI result Body Mass Index 38.9 Const: Other: General: AO X 3, no acute distress Resp: CTA bilateral CVS: S1,S2,RRR GI: +BS, NT, no distention Skin: No rash Neuro: motor grossly intact Psych: appropriate affect DS: Data Data Completed and Pending Labs on day of discharge: Laboratory Results - last 24 hr 04/06/23 04/06/23 04/07/23 16:09 20:07 07:37 POC Glucose 173 H 133 H 132 H 04/07/23 11:30 POC Glucose 190 H Discharge Plan Discharge Anticipated Discharge Date/Time: 04/07/23 13:51 Patient Disposition: Home, Self-Care Discharge Diagnosis: Acute COPD exacerbation Referrals: Adriana Cadena CNP [Primary Care Provider] - 1 Week Discharge Medications: Continued sertraline 100 mg Tablet 150 mg PO DAILY prazosin 1 mg Capsule 2 mg PO BEDTIME ibuprofen 800 mg tablet 1 tab PO Q12H PRN (Reason: Pain) docusate sodium 100 mg Tablet 100 mg PO BID PRN (Reason: Constipation) ondansetron 4 mg tablet,disintegrating 8 mg PO Q8H PRN (Reason: Nausea) roflumilast 500 mcg Tablet 500 mcg PO DAILY buprenorphine-naloxone [Suboxone] 4-1 mg film 1 strip sublingual DAILY trazodone 150 mg tablet 300 mg PO BEDTIME albuterol sulfate 2.5 mg /3 mL (0.083 %) solution for nebulization 3 ml inhalation QID PRN (Reason: Wheezing) famotidine 20 mg tablet 1 tab PO BID fluticasone propion-salmeterol [Advair Diskus] 100-50 mcg/dose blister with device 1 puff inhalation BID lisinopril 40 mg tablet 1 tab PO DAILY fluticasone propionate 50 mcg/actuation spray,suspension 1 spray intranasal BID tiotropium bromide [Spiriva with HandiHaler] 18 mcg capsule, w/inhalation device 1 cap inhalation DAILY prazosin 1 mg capsule 1 mg PO DAILY atorvastatin 20 mg tablet 20 mg PO BEDTIME torsemide 20 mg tablet 20 mg PO DAILY haloperidol 1 mg tablet 2 mg PO BEDTIME hydralazine 25 mg tablet 25 mg PO TID buspirone 10 mg tablet 10 mg PO TID cetirizine 10 mg tablet 10 mg PO DAILY acetaminophen 500 mg tablet 1,000 mg PO Q6H PRN (Reason: Pain) amlodipine 10 mg tablet 10 mg PO DAILY metformin 1,000 mg tablet 1,000 mg PO BID montelukast 10 mg tablet 10 mg PO DAILY gabapentin 100 mg capsule 200 mg PO QID latanoprost 0.005 % Drops 1 drp OPHTHALMIC (EYE) BEDTIME miconazole nitrate 2 % Cream 1 appl TOPICAL DAILY PRN (Reason: Rash) nystatin 100,000 unit/gram Powder 1 appl TOPICAL DAILY PRN (Reason: Rash) albuterol sulfate [Ventolin HFA] 90 mcg/actuation HFA aerosol inhaler 2 puff inhalation Q6H PRN (Reason: Shortness Of Breath Or Wheezing) Discharge Orders: Discharge Order (Routine); Ordered 04/07/23 Ordered By: Felice Whitfield Diet: Advance to usual diet Activity on Discharge: As tolerated Stand Alone Forms: Patient Portal Discharge page Care Plan Goals: Full recovery from copd exacerbation and acute hypoxic respiratory failure Health Concerns: chronic tobacco use obesity copd Plan of Treatment: AVOID SMOKING USE INHALERS DIRECTED FOLLOW UP WITH YOUR DOCTOR IN A WEEK, CALL FOR APPOINTMENT Assessment: SEE ABOVE
--- NOTE | 2023-04-07 15:47 | MHC.CM.PN ---
Pt able to tolerate room air today: Call placed to [facility] [employer] department head Claritza to relay info and request transportation for d/c. Claritza states a assisted member will be able to transport her between 3 and 4pm today. Pt informed and aware of d/c plan.
== END 2023-04-07 15:33 | disposition home or self-care (01) | DRG 140 ==
LOC: HO.ED 04-01 02:39 → HO.EDOVER 04-01 03:06 → HO.ICU 04-01 03:20 → HO.IMC 04-01 15:55
PROVIDERS: Internal Medicine; Admitting Provider Internal Medicine Pulmonary Disease; Emergency Provider Student in an Organized Health Care Education/Training Program; PCP Nurse Practitioner Family; Visit Provider Internal Medicine
DX: J44.1 Chronic obstructive pulmonary disease with (acute) exacerbation (principal); J96.21 Acute and chronic respiratory failure with hypoxia; I49.5 Sick sinus syndrome; I50.32 Chronic diastolic (congestive) heart failure; I11.0 Hypertensive heart disease with heart failure; F17.210 Nicotine dependence, cigarettes, uncomplicated; E11.9 Type 2 diabetes mellitus without complications; I44.1 Atrioventricular block, second degree; E87.6 Hypokalemia; Z71.6 Tobacco abuse counseling; F31.9 Bipolar disorder, unspecified; E66.9 Obesity, unspecified; Z68.39 Body mass index [BMI] 39.0-39.9, adult; Z20.822 Contact with and (suspected) exposure to COVID-19; J96.22 Acute and chronic respiratory failure with hypercapnia; Z79.51 Long term (current) use of inhaled steroids; Z79.84 Long term (current) use of oral hypoglycemic drugs; Z79.899 Other long term (current) drug therapy
CPT/HCPCS: 36415; 71045; 80048; 81001; 82040; 82803; 82947; 83605; 83735; 83880; 84100; 85025; 87040; 87502; 87635; 94640; 94799; 97116; 97162; 99285; J1120; J1630; J1644; J2543; J2930; J3010; J3475

== ENCOUNTER → 2023-04-01 03:01 | Outpatient (BNV) | payer OTHER, SELFPAY | PROVIDERS: Admitting Provider Internal Medicine Pulmonary Disease; Emergency Provider Student in an Organized Health Care Education/Training Program; Visit Provider Internal Medicine Pulmonary Disease | DX: J44.1 Chronic obstructive pulmonary disease with (acute) exacerbation (principal); E11.9 Type 2 diabetes mellitus without complications | CPT/HCPCS: 99291 ==

== ENCOUNTER → 2023-04-01 03:01 | Outpatient (BNV) | payer OTHER, SELFPAY | PROVIDERS: Admitting Provider Internal Medicine Pulmonary Disease; Emergency Provider Student in an Organized Health Care Education/Training Program; PCP Nurse Practitioner Family; Visit Provider Internal Medicine Cardiovascular Disease | DX: J96.00 Acute respiratory failure, unspecified whether with hypoxia or hypercapnia (principal); R00.1 Bradycardia, unspecified | CPT/HCPCS: 99223 ==

== ENCOUNTER → 2023-04-01 03:01 | Outpatient (BNV) | payer OTHER, SELFPAY | PROVIDERS: Admitting Provider Internal Medicine Pulmonary Disease; Emergency Provider Student in an Organized Health Care Education/Training Program; PCP Nurse Practitioner Family; Visit Provider Internal Medicine | DX: J44.1 Chronic obstructive pulmonary disease with (acute) exacerbation (principal); J96.01 Acute respiratory failure with hypoxia | CPT/HCPCS: 99232; 99239 ==

== ENCOUNTER 2025-05-10 18:31 | Emergency (ER) | payer OTHER, SELFPAY ==
--- NOTE | ~2025-05-10 | XR_ITS ---
CLINICAL HISTORY: ams, copd 1 view chest x-ray Comparison: CR/SR - XR CHEST 2 VIEWS - 03/31/23 21:55 EST Findings: Prominence of the pulmonary vasculature. Decreased lung volumes. Cardiomegaly. No acute fracture. IMPRESSION: 1. Cardiomegaly with CHF. 2. Decreased lung volumes. 3. No acute osseous abnormality. This document has been electronically signed by: Christiano Jules MD on 05/10/2025 21:21:38
[2025-05-10 18:42] VITALS: BP 165/86; BP 170/90; PULSE 77; PULSE 88; RESP 18; TEMP 36.9; O2SAT 90; O2SAT 95; BMI 31.4
--- NOTE | 2025-05-10 18:48 | ECG_ITS ---
Test Reason : ams Blood Pressure : */* mmHG Vent. Rate : 82 BPM Atrial Rate : 82 BPM P-R Int : 166 ms QRS Dur : 102 ms QT Int : 358 ms P-R-T Axes : 65 -18 63 degrees QTcB Int : 418 ms Sinus rhythm with marked sinus arrhythmia Minimal voltage criteria for LVH, may be normal variant ( [place] product ) Cannot rule out Anterior infarct (cited on or before 21-Feb-2020) Abnormal ECG When compared with ECG of 25-Feb-2023 21:02, No significant change was found Referred By: Generic ED Physician Electronically Signed By: DENZEL HERNÁNDEZ
[2025-05-10 19:14] VITALS: TEMP 36.8
[2025-05-10 19:24] LABS: Hematocrit 41.6 % (37.0-47.0); Hemoglobin 13.0 g/dl (12.0-16.0); Imm Gran Abs Auto 0.02 X10*3/uL (0.00-0.03); Imm Gran Pct Auto 0.3 % (0.0-0.4); Lymphocytes Absolute Auto 1.6 X10*3/uL (1.2-4.9); MANUAL DIFF FLAG NO; Mean Corpuscular HGB Conc 31.3 g/dl (31.0-35.0); Mean Corpuscular Hemoglobin 26.2 pg (27.0-33.0); Mean Corpuscular Volume 83.7 fL (80.0-98.0); NRBC Abs Auto 0.000 X10*3/uL (0.0-0.012); NRBC Pct Auto 0.0 /100WBC (0.0-0.2); Platelet Count 135 X10*3/uL (160-400); Red Blood Count 4.97 X10*6/uL (4.20-5.50); White Blood Count 6.6 X10*3/uL (4.8-10.8)
[2025-05-10 19:25] LABS: Appearance Urine Clear; Glucose Urine UA Negative (Negative); PH 6.5 (5.0-9.0); Specific Gravity - Urine 1.015 (1.005-1.025); UMIC TRIGGER UACC YES
[2025-05-10 19:28] LABS: UACC Culture Trigger YES
[2025-05-10 19:28] LABS: VBG HCO3 37 mmol/L (22-26); VBG O2 % Saturation 92.0 %
[2025-05-10 19:31] VITALS: PULSE 96; RESP 14; O2SAT 98
[2025-05-10 19:32] LABS: Glucose, Whole Blood 90 mg/dL (60-115)
[2025-05-10] MEDS: Albuterol/Iprat 2.5/0.5MG 3 ML AMPUL.NEB INHALE (19:33)
[2025-05-10 19:39] LABS: Alanine Aminotransferase 20 U/L (0-31); Albumin Level 4.4 g/dL (3.5-5.0); Alkaline Phosphatase 104 U/L (39-117); Anion Gap 17 (12-20); Aspartate Amino Transferase 42 U/L (5-31); Blood Urea Nitrogen 9 mg/dL (9-16); Calcium 9.7 mg/dL (8.4-10.2); Carbon Dioxide 28 mmol/L (22-29); Chloride 102 mmol/L (96-108); Creatinine Clr Calc Pharmacy 134.0; Estimated Glomerular Filt Rate > 60; Potassium 4.5 mmol/L (3.3-5.1); Sodium 142 mmol/L (135-145); Total Protein 7.6 g/dL (6.5-8.0)
[2025-05-10 19:40] LABS: Venous Blood Gas Refer to POC result
--- NOTE | 2025-05-10 19:57 | PC.NURSE ---
assumed care of pt at 1900. PT found in stretcher denies any pain or complaints at this time, pt appears to be somnolent but can be aroused by voice. PT does not know why she is here and shelter reports she is off her baseline. PT is able to answer questions and is oriented. Respiratory at bedside administering nebulizer, pt medicated per JUL, able to void on bedpan, EKG/POC obtained. VSS.
[2025-05-10 20:00] LABS: Resp Syncy Virus RNA Qual PCR NEGATIVE (Negative); SARS COV2 PCR INHOUSE NEGATIVE (Negative)
[2025-05-10 21:49] VITALS: BP 178/76; PULSE 98; RESP 18; O2SAT 95
[2025-05-10] MEDS: Magnesium Sulfate/H2O 2 GM/50 ML PIGGYBACK IV (22:14)
[2025-05-10 22:15] VITALS: BP 140/80; PULSE 96; RESP 20; TEMP 37.6; O2SAT 95
[2025-05-10] MEDS: Furosemide 20 MG/2 ML VIAL IVPUSH (22:15)
--- NOTE | 2025-05-10 22:39 | ED.GENADULT ---
HPI - General Adult General Chief complaint: Weakness Stated complaint: Group hoe weakness started this morning Time Seen by Provider: 05/10/25 20:46 Source: patient and EMS Limitations: other (Or a story) History of Present Illness HPI narrative: 55-year-old female with a history of bipolar disorder, PTSD, prior opiate use disorder currently on Suboxone, hepatitis-C that has been treated, hypertension, diabetes, morbid obesity, chronic venous insufficiency, asthma/COPD overlap on 2 L nasal cannula at baseline, ongoing tobacco abuse, presents from [facility] with worsening weakness and fatigue over the past 2 days. Associated cough of unclear duration, unclear if the patient has had fevers, the patient is a poor historian at baseline. Denies chest pain or shortness of breath at this time. Related Data Home Medications ?Medication ?Instructions ?Recorded ?Confirmed sertraline 100 mg tablet 150 mg PO DAILY 02/21/20 04/01/23 prazosin 1 mg capsule 2 mg PO BEDTIME 02/22/20 04/01/23 albuterol sulfate 2.5 mg/3 mL 3 ml inhalation QID PRN Wheezing 11/14/21 04/01/23 (0.083 %) solution for nebulization famotidine 20 mg tablet 1 tab PO BID 11/14/21 04/01/23 fluticasone 100 mcg-salmeterol 50 1 puff inhalation BID 11/14/21 04/01/23 mcg/dose blistr powdr for inhalation (Advair Diskus) fluticasone propionate 50 1 spray intranasal BID 11/14/21 04/01/23 mcg/actuation nasal spray,suspension lisinopril 40 mg tablet 1 tab PO DAILY 11/14/21 04/01/23 prazosin 1 mg capsule 1 mg PO DAILY 11/14/21 04/01/23 tiotropium bromide 18 mcg capsule 1 cap inhalation DAILY 11/14/21 04/01/23 with inhalation device (Spiriva with HandiHaler) buprenorphine 4 mg-naloxone 1 mg 1 strip sublingual DAILY 02/03/22 04/01/23 sublingual film (Suboxone) docusate sodium 100 mg tablet 100 mg PO BID PRN Constipation 02/03/22 04/01/23 ibuprofen 800 mg tablet 1 tab PO Q12H PRN Pain 02/03/22 04/01/23 ondansetron 4 mg disintegrating 8 mg PO Q8H PRN Nausea 02/03/22 04/01/23 tablet roflumilast 500 mcg tablet 500 mcg PO DAILY 02/03/22 04/01/23 trazodone 150 mg tablet 300 mg PO BEDTIME 02/03/22 04/01/23 atorvastatin 20 mg tablet 20 mg PO BEDTIME 02/26/23 04/01/23 buspirone 10 mg tablet 10 mg PO TID 02/26/23 04/01/23 haloperidol 1 mg tablet 2 mg PO BEDTIME 02/26/23 04/01/23 hydralazine 25 mg tablet 25 mg PO TID 02/26/23 04/01/23 torsemide 20 mg tablet 20 mg PO DAILY 02/26/23 04/01/23 acetaminophen 500 mg tablet 1,000 mg PO Q6H PRN Pain 04/01/23 04/01/23 albuterol sulfate 90 mcg/actuation 2 puff inhalation Q6H PRN 04/01/23 04/01/23 aerosol inhaler (Ventolin HFA) Shortness Of Breath Or Wheezing amlodipine 10 mg tablet 10 mg PO DAILY 04/01/23 04/01/23 cetirizine 10 mg tablet 10 mg PO DAILY 04/01/23 04/01/23 gabapentin 100 mg capsule 200 mg PO QID 04/01/23 04/01/23 latanoprost 0.005 % eye drops 1 drp ophthalmic (eye) BEDTIME 04/01/23 04/01/23 metformin 1,000 mg tablet 1,000 mg PO BID 04/01/23 04/01/23 miconazole nitrate 2 % topical 1 appl topical DAILY PRN Rash 04/01/23 04/01/23 cream montelukast 10 mg tablet 10 mg PO DAILY 04/01/23 04/01/23 nystatin 100,000 unit/gram topical 1 appl topical DAILY PRN Rash 04/01/23 04/01/23 powder Previous Rx's ?Medication ?Instructions ?Recorded amoxicillin 875 mg-potassium 1 tab PO Q12H #19 tabs 05/10/25 clavulanate 125 mg tablet doxycycline hyclate 100 mg capsule 100 mg PO BID #19 caps 05/10/25 prednisone 20 mg tablet 40 mg (2 x 20 mg) PO DAILY #8 tabs 05/10/25 Allergies Allergy/AdvReac Type Severity Reaction Status Date / Time codeine (CODEINE) AdvReac Mild RASH Verified 03/31/23 21:38 oxycodone (From OXYCONTIN) AdvReac Mild RASH Verified 03/31/23 21:38 fish derived (fish) AdvReac Unresponsiv Verified 05/10/25 18:46 e Review of Systems Review of Systems: Yes all other systems are reviewed and are negative Constitutional: Constitutional: Denies fatigue and Denies fever(s) Cardiovascular: Cardiovascular: Denies chest pain and Denies dyspnea Respiratory: Respiratory: Reports cough and Denies dyspnea Endocrine: Endocrine: Denies fatigue [facility] Past Medical History Attestation statement: The following information was validated with the patient. Medical History Class 2 obesity Hypoxia Diabetes mellitus Pulmonary nodule Chronic venous stasis dermatitis Hypertension COPD (chronic obstructive pulmonary disease) Asthma Surgical History H/O neck surgery Social History Social History Household Members: None Household Members Other:: [facility] Housing: Other Housing Other:: [facility] Do you presently have visiting nurse or other home services: No Alcohol intake: never Comment: Pt declines bedalarm, agrees to call when attempting to ambulate Patient Tobacco Use Status: Current everyday Tobacco user Tobacco use type: Cigarette Cigarette Packs Per Day: 1 Cigarettes Per Day: 20.0 Years Smoked: 22 Smoked in Last 30 Days: Yes Second Hand Smoke Exposure: Yes Use of substances other than those prescribed or required for medical reasons: No Substance Use Type: Former Substance User Advance Directives: No Advance Directives Information Provided: No Patient : No service: No Current occupational status: unemployed Physical Exam ED Vital Signs: Vital Signs - 24 hr 05/10/25 18:42 05/10/25 19:14 05/10/25 19:31 Temperature 98.4 F 98.2 F Pulse Rate 88 96 Respiratory Rate 18 14 Blood Pressure 165/86 H Pulse Oximetry 90 L Oxygen Delivery Method Nasal Cannula Oxygen Flow Rate 05/10/25 21:49 05/10/25 22:15 05/10/25 22:15 Temperature 99.6 F Pulse Rate 98 96 Respiratory Rate 18 20 Blood Pressure 178/76 H 140/80 H 140/80 H Pulse Oximetry 95 95 Oxygen Delivery Method Nasal Cannula Nasal Cannula Oxygen Flow Rate 2 2 BMI result Body Mass Index 31.4 Const Other: Sleeping, easily woken with verbal stimuli, appears older than stated age Orientation/consciousness: patient oriented x3 Resp Other: No active wheezing at this time, already had a breathing treatment Effort & Inspection: normal respiratory effort Cardio Other: Normal peripheral perfusion Skin Other: Warm dry no rash Neuro General: patient oriented x3, no focal motor deficits and CN's II-XI intact bilaterally Psych Other: Cooperative, flat affect Medications Administered Discontinued Medications Generic Name Dose Route Start Last Admin Trade Name Freq PRN Reason Stop Dose Admin Acetaminophen 975 mg 05/10/25 23:34 05/10/25 23:49 Acetaminophen 325 Mg Tablet PO 05/10/25 23:35 975 mg ONCE ONE Administration Albuterol/Ipratropium 3 ml 05/10/25 19:26 05/10/25 19:33 Albuterol/Iprat 2.5/0.5mg 3 Ml Ampul.Neb INHALE 05/10/25 19:27 3 ml ONCE ONE Administration Amoxicillin/Clavulanate Potassium 875 mg 05/10/25 22:29 05/10/25 22:49 Amoxicillin/Potassium Clav 875 Mg Tablet PO 05/10/25 22:30 875 mg ONCE ONE Administration Doxycycline Monohydrate 100 mg 05/10/25 22:41 05/10/25 22:48 Doxycycline Monohydrate 100 Mg Capsule PO 05/10/25 22:42 100 mg ONCE ONE Administration Furosemide 20 mg 05/10/25 21:30 05/10/25 22:15 Furosemide 20 Mg/2 Ml Vial IVPUSH 05/10/25 21:31 20 mg ONCE ONE Administration Protocol Magnesium Sulfate 2 gm in 50 mls @ 150 mls/hr 05/10/25 21:28 05/10/25 22:48 Magnesium Sulfate/H2o IV 05/10/25 21:47 Infused ONCE ONE Infusion Methylprednisolone Sodium Succinate 60 mg 05/10/25 18:56 05/10/25 19:32 Methylprednisolone Sod Succ 125 Mg/2 Ml Vial IVPUSH 05/10/25 18:57 60 mg ONCE ONE Administration Medical Decision Making Medical Decision Making MDM Narrative: 55-year-old female with a history of bipolar disorder, PTSD, prior opiate use disorder currently on Suboxone, hepatitis-C that has been treated, hypertension, diabetes, morbid obesity, chronic venous insufficiency, asthma/COPD overlap on 2 L nasal cannula at baseline, ongoing tobacco abuse, presents from [facility] with worsening weakness and fatigue over the past 2 days. Associated cough of unclear duration, unclear if the patient has had fevers, the patient is a poor historian at baseline. Denies chest pain or shortness of breath at this time. Problem: Psychiatric illness, COPD on oxygen, opiate use disorder, obesity, diabetes History: Per patient which is limited I have considered the following differential diagnoses: Asthma exacerbation, bronchitis, pneumonia, heart failure exacerbation, viral syndrome Plan: Patient here with nonspecific symptoms of a cough, she is afebrile, she is on her baseline oxygen requirement, vitals stable. Screening labs including EKG and chest x-ray obtained, she has some vascular congestion, we will give Lasix. She already had a breathing treatment, she is no longer wheezing. We will be giving steroid magnesium, giving ongoing tobacco abuse we will cover for bronchitis, giving doxycycline and Augmentin. I have independently reviewed the following tests: Labs: No leukocytosis, not anemic, no electrolyte abnormality, viral panel negative, urine not infected, venous blood gas at her baseline, no acute abnormality EKG: Sinus rhythm with a sinus arrhythmia rate of 82, LVH noted, no ischemic changes no change from prior study from 2022, QTC 418 Chest x-ray:indings: Prominence of the pulmonary vasculature. Decreased lung volumes. Cardiomegaly. No acute fracture. IMPRESSION: 1. Cardiomegaly with CHF. 2. Decreased lung volumes. 3. No acute osseous abnormality. Differential Diagnosis Differential Diagnoses: The differential diagnosis associated with the presentation includes See [facility] Admission/Observation Consideration of admission/observation: Escalation of care including admission/observation considered Not applicable Lab Data [facility] Lab Attestation statement: I reviewed the patient's lab results. 05/10/25 19:18 05/10/25 19:18 Labs: Lab Results 05/10/25 05/10/25 05/10/25 Range/Units 19:18 19:23 19:26 WBC 6.6 (4.8-10.8) X10*3/uL RBC 4.97 (4.20-5.50) X10*6/uL Hgb 13.0 (12.0-16.0) g/dl Hct 41.6 (37.0-47.0) % MCV 83.7 (80.0-98.0) fL MCH 26.2 L (27.0-33.0) pg MCHC 31.3 (31.0-35.0) g/dl RDW 15.4 (11.0-16.0) % Plt Count 135 L (160-400) X10*3/uL MPV 8.6 L (9.4-12.3) fL Immature Gran % (Auto) 0.3 (0.0-0.4) % Neut % (Auto) 61.5 (45-73) % Lymph % (Auto) 24.5 (20-40) % [place] % (Auto) 10.5 (2-11) % Eos % (Auto) 2.6 (0-4) % Baso % (Auto) 0.6 (0-2) % Lymph # (Auto) 1.6 (1.2-4.9) X10*3/uL [place] # (Auto) 0.7 (0.1-1.2) X10*3/uL Eos # (Auto) 0.2 (0.0-0.4) X10*3/uL Baso # (Auto) 0.0 (0.0-0.2) X10*3/uL Abs Immat Gran (auto) 0.02 (0.00-0.03) X10*3/uL Absolute Neuts (auto) 4.0 (2.0-8.3) x10*3/uL Absolute Nucleated RBC 0.000 (0.0-0.012) X10*3/uL Nucleated RBC % (auto) 0.0 (0.0-0.2) /100WBC VBG pH 7.43 (7.32-7.43) VBG pCO2 55 mmHg VBG pO2 67 mmHg VBG HCO3 37 H (22-26) mmol/L VBG O2 Saturation 92.0 % VBG Base Excess 10.6 mmol/L Sodium 142 (135-145) mmol/L Potassium 4.5 (3.3-5.1) mmol/L Chloride 102 (96-108) mmol/L Carbon Dioxide 28 (22-29) mmol/L Anion Gap 17 (12-20) BUN 9 (9-16) mg/dL Creatinine 0.58 (0.5-1.4) mg/dL Estim Creat Clear Calc 134.0 Estimated GFR > 60 POC Glucose 90 (60-115) mg/dL Random Glucose 89 (60-115) mg/dL Calcium 9.7 (8.4-10.2) mg/dL Total Bilirubin 0.3 (0.0-1.0) mg/dL AST 42 H (5-31) U/L ALT 20 (0-31) U/L Alkaline Phosphatase 104 (39-117) U/L Total Protein 7.6 (6.5-8.0) g/dL Albumin 4.4 (3.5-5.0) g/dL Urine Color Yellow Urine Appearance Clear Urine pH 6.5 (5.0-9.0) Ur Specific [place] 1.015 (1.005-1.025) Urine Protein 30 (1+) H (Neg-Trace) mg/dL Urine Glucose (UA) Negative (Negative) mg/dL Urine Ketones Negative (Negative) mg/dL Urine Blood Negative (Negative) Urine Nitrite Negative (Negative) Ur Leukocyte Esterase Trace H (Negative) Urine RBC 0-2 (0-2) /HPF Urine WBC 11-20 H (0-5) /HPF Ur Squamous Epith Cells 11-20 (0-2) /HPF Urine Bacteria 2+ (None Seen) Hyaline Casts 0-2 (0-2) /LPF Influenza Type A (PCR) NEGATIVE (Negative) Influenza Type B (PCR) NEGATIVE (Negative) RSV RNA Qual (PCR) NEGATIVE (Negative) SARS-CoV-2 RNA (RT-PCR) NEGATIVE (Negative) Independent Interpretation I performed an independent interpretation of an: EKG Radiology Impression Discussion of test interpretation with radiology: I have reviewed the radiologist's reading. Discharge Plan Discharge Clinical Impression: Bronchitis Patient Disposition: Home, Self-Care Instructions: Acute Bronchitis (ED) Additional Instructions: You are being treated for bronchitis. See home care instructions. Take the doxycycline as directed, take the Augmentin as directed. Take the steroid as directed. Use your home nebulizer as directed. The chest x-ray was clear there was no pneumonia. You were tested for influenza RSV and COVID, it was negative. You likely have another respiratory virus that has been circulating within the community, causing your acute bronchitis. Follow up with your primary care provider as needed. Prescriptions: New doxycycline hyclate 100 mg capsule 100 mg PO BID Qty: 19 0RF amoxicillin-pot clavulanate 875-125 mg tablet 1 tab PO Q12H Qty: 19 0RF prednisone 20 mg tablet 40 mg PO DAILY Qty: 8 0RF No Action sertraline 100 mg Tablet 150 mg PO DAILY prazosin 1 mg Capsule 2 mg PO BEDTIME ibuprofen 800 mg tablet 1 tab PO Q12H PRN (Reason: Pain) docusate sodium 100 mg Tablet 100 mg PO BID PRN (Reason: Constipation) ondansetron 4 mg tablet,disintegrating 8 mg PO Q8H PRN (Reason: Nausea) roflumilast 500 mcg Tablet 500 mcg PO DAILY buprenorphine-naloxone [Suboxone] 4-1 mg film 1 strip sublingual DAILY trazodone 150 mg tablet 300 mg PO BEDTIME albuterol sulfate 2.5 mg /3 mL (0.083 %) solution for nebulization 3 ml inhalation QID PRN (Reason: Wheezing) famotidine 20 mg tablet 1 tab PO BID fluticasone propion-salmeterol [Advair Diskus] 100-50 mcg/dose blister with device 1 puff inhalation BID lisinopril 40 mg tablet 1 tab PO DAILY fluticasone propionate 50 mcg/actuation spray,suspension 1 spray intranasal BID tiotropium bromide [Spiriva with HandiHaler] 18 mcg capsule, w/inhalation device 1 cap inhalation DAILY prazosin 1 mg capsule 1 mg PO DAILY atorvastatin 20 mg tablet 20 mg PO BEDTIME torsemide 20 mg tablet 20 mg PO DAILY haloperidol 1 mg tablet 2 mg PO BEDTIME hydralazine 25 mg tablet 25 mg PO TID buspirone 10 mg tablet 10 mg PO TID cetirizine 10 mg tablet 10 mg PO DAILY acetaminophen 500 mg tablet 1,000 mg PO Q6H PRN (Reason: Pain) amlodipine 10 mg tablet 10 mg PO DAILY metformin 1,000 mg tablet 1,000 mg PO BID montelukast 10 mg tablet 10 mg PO DAILY gabapentin 100 mg capsule 200 mg PO QID latanoprost 0.005 % Drops 1 drp OPHTHALMIC (EYE) BEDTIME miconazole nitrate 2 % Cream 1 appl TOPICAL DAILY PRN (Reason: Rash) nystatin 100,000 unit/gram Powder 1 appl TOPICAL DAILY PRN (Reason: Rash) albuterol sulfate [Ventolin HFA] 90 mcg/actuation HFA aerosol inhaler 2 puff inhalation Q6H PRN (Reason: Shortness Of Breath Or Wheezing) Interventions: ED Discharge Assessment Last Done: 05/11/25 00:03 Discharge Date/Time: 05/11/25 00:11 Print Language: Bel[place]ian
--- NOTE | 2025-05-10 22:49 | PC.NURSE ---
attempted to contact skilled nursing x8, no answer at this time, YAMILKA matt made aware
--- NOTE | 2025-05-10 22:51 | PC.NURSE ---
pt denying any complaints at this time medicated per MAR, unable to scan augmentin due to faded label.
--- NOTE | 2025-05-10 22:56 | PC.NURSE ---
report given to staff at pt [facility]. all questions answered. attempting to book transport for pt.
[2025-05-10 23:51] VITALS: BP 106/72; PULSE 104; RESP 18; TEMP 37.7; O2SAT 93
[2025-05-11 00:03] VITALS: BP 106/72; PULSE 104; RESP 18; TEMP 37.7; O2SAT 93
== END 2025-05-11 00:11 | disposition home or self-care (01) ==
PROVIDERS: Emergency Provider Emergency Medicine; PCP Nurse Practitioner Family
DX: J40 Bronchitis, not specified as acute or chronic (principal); R53.1 Weakness; Z03.818 Encounter for observation for suspected exposure to other biological agents ruled out; R41.82 Altered mental status, unspecified; I49.9 Cardiac arrhythmia, unspecified; R94.31 Abnormal electrocardiogram [ECG] [EKG]; J44.9 Chronic obstructive pulmonary disease, unspecified; E11.9 Type 2 diabetes mellitus without complications; I10 Essential (primary) hypertension
CPT/HCPCS: 36415; 71045; 80053; 81001; 82803; 82947; 85025; 87086; 87637; 93005; 94640; 96365; 96375; 99284; 99285; J1938; J2919; J3475

== ENCOUNTER → 2025-05-10 18:48 | Outpatient (BNV) | payer OTHER, SELFPAY | PROVIDERS: Emergency Provider Emergency Medicine; PCP Nurse Practitioner Family; Visit Provider Internal Medicine | DX: I49.8 Other specified cardiac arrhythmias (principal) | CPT/HCPCS: 93010 ==

== ENCOUNTER → 2025-05-10 18:48 | Outpatient (BNV) | payer OTHER, SELFPAY | PROVIDERS: Emergency Provider Emergency Medicine; PCP Nurse Practitioner Family; Visit Provider Radiology Diagnostic Radiology | DX: I50.9 Heart failure, unspecified (principal); I51.7 Cardiomegaly | CPT/HCPCS: 71045 ==